=== PATIENT | male | born 1950 | race Caucasian/White ===

== ENCOUNTER 2017-07-23 09:11 | Day surgery (SDC) | payer MEDICARE, BC, SELFPAY ==
[2017-07-08 10:56] VITALS: BMI 42.9
[2017-07-23] VITALS (10 sets, daily range): BP systolic 102–141; BP diastolic 59–78; PULSE 78–93; RESP 14–22; TEMP 36.4–36.8; O2SAT 92–96; BMI 42.9
[2017-07-23] MEDS: CELECOXIB 200 MG CAPSULE 400 MG PO (10:47)
[2017-07-23] MEDS: LACTATED RINGERS 1,000 ML 42 ML IV ×2 (11:20→13:30)
--- NOTE | 2017-07-23 12:10 | SUR.PREOP ---
Block by dr Smart with Versed & Fentanyl given. No O2 used. Tolerated well. VSS. NSR but unable to print strip. Time 9205-6116.
--- NOTE | 2017-07-23 12:11 | P.OP_ITS ---
Operative Date/Time/Diagnoses - Date of procedure: 07/23/17 Time of procedure: 13:36 Pre-op diagnosis: Right knee medial compartment arthritis Post-op diagnosis: same Procedure & Clinicians Procedure: Right knee medial compartment arthroplasty Same procedure as scheduled: Yes Indications: The patient presents today for medial compartment knee arthroplasty after failure of conservative treatment. The nature of the procedure including the risks and benefits, alternatives, postoperative course and expected outcome were discussed and all questions answered. Consent was obtained. Operative site confirmed and marked. Surgeon: Gal Dinero Email Marketing Specialist: Kaylen Vickers Anesthesia Type: General, Peripheral nerve block and Local Operative Notes Findings: Severe medial compartment osteoarthritis Closure Type: primary Specimen(s): none sent Implants & Drains: Rodriguez and NephThe Skillery ZUK: C Femoral component, 3 tibial component, 8 mm polyethylene spacer. Applied: implant(s) Estimated Blood Loss (mL): 5 Blood products transfused: none Tourniquet time (min): 48 Procedure in detail: The patient was taken to the operative suite and placed under general anesthesia. The patient received prophylactic antibiotics 1 g of IV tranexamic acid prior to surgery. [The lateral aspect of the leg was prepped and the knee injected with 20 mL of 1% lidocaine with epinephrine.] The leg was prepped and draped in usual sterile fashion. The leg was exsanguinated with an Esmarch dressing and the tourniquet raised to 250 torr. A 10 cm medial parapatellar incision and arthrotomy was then made. The anterior aspect of the fat pad and medial meniscus was resected. A small amount of anterior tibial boss was resected with a oscillating saw. The knee was then extended and the alignment guide placed. The distal femoral and proximal tibial cutting guides were then pinned into place. The distal femoral cut was made in extension. The proximal tibial cut was made in flexion. All remaining meniscus was excised. Gaps were checked with blocks. Soft tissues were then injected with a combination of [40 mL of quarter percent Marcaine with epinephrine, 20 mL of Exparel]. The femur was sized and the appropriate cutting guide placed. The peg holes were drilled and chamfer cuts made. Next the tibia was sized and drilled. Trial components were then placed. The knee had good shinto of soft tissue tension without over correction. Range of motion was [full]. The trial components were removed. The knee was cleansed with Pulsavac irrigation and dried. The components were then cemented with high viscosity vacuum mixed bone cement. The knee was held in extension until the cement had adequately cured. The knee was then irrigated and inspected for any further debris. The extensor mechanism was closed at 90? of flexion with a few interrupted #1 Vicryl sutures and a running O V-LOC suture. [The knee was then filled with 50 mL of solution containing 1 g of tranexamic acid and 10 mL of 0.5% Marcaine.] The subcutaneous tissue was closed with 2-0 Vicryl. The skin was closed with a running 3 0 V-LOC suture and surgical adhesive. An Aquacel dressing was applied. The leg was then wrapped with an Adam which will be kept on for the first 24 hours. The patient tolerated the procedure well and was returned to recovery room in good condition. Complications: none Condition: stable Disposition: same day surgery Plan for aftercare: Progressive weight-bearing and activity as tolerated. Aspirin for DVT prophylaxis. Discharged to home.
[2017-07-23] MEDS: CEFAZOLIN 2 GM/100 ML FROZ.PIGGY IV (12:14)
[2017-07-23] MEDS: LIDOCAINE 1% W/EPI INJ 20 ML INJ (12:20)
--- NOTE | 2017-07-23 12:45 | SUR.PREOP ---
Prior to going into the OR, took hearing aids. Teeth and glasses with patient to OR.
[2017-07-23] MEDS: MIDAZOLAM 2 MG/2 ML VIAL 1 MG IV (12:52)
[2017-07-23] MEDS: fentaNYL 100 MCG/2 ML INJ 50 MCG IV (12:52)
--- NOTE | 2017-07-23 12:52 | SUR.OPER ---
Supine on padded OR bed. Pillow under head, arms secured on padded armboards <90 degree abduction. Safety belt across torso. Non-operative leg secured with tape over blanket over lower leg. Operative leg secured in DeMayo/Remi positioner. Foam padded brace at thigh of operative leg.
[2017-07-23] MEDS: BUPIVACAINE 0.5% W/ EPI (PF) 20 ML, BUPIVACAINE LIPOSOME 266 MG, SODIUM CHLORIDE 0.9% 2... INJ (13:02)
[2017-07-23] MEDS: BUPIVACAINE 0.5% (PF) 10 ML, TRANEXAMIC ACID 1,000 MG, SODIUM CHLORIDE 0.9% 20 ML INJ (13:03)
[2017-07-23] MEDS: OXYCODONE/ACETAMINOPHEN 5/325 TABLET 1 TAB PO (14:20)
--- NOTE | 2017-07-23 15:36 | SUR.PHASEII ---
While in Phase II walked twice with walker- first about 20 feet, and then ten feet. Used walker. Tolerated well and without c/o pain. Transferred from to car without problem and independently. While verbalizing pain at 9/10, FLACC remained 0 the entire time in Phase II.
--- NOTE | 2017-07-23 15:39 | SUR.PHASEII ---
Addendum: Would have been able to discharge about fifteen minutes earlier however needed to wait for to return from picking up prescriptions.
== END 2017-07-23 15:25 | disposition home or self-care (01) ==
PROVIDERS: PCP Physician Assistant; Visit Provider Orthopaedic Surgery
PROC: (CPT 27446; principal; 2017-07-23 10:30)
DX: M17.11 Unilateral primary osteoarthritis, right knee (principal); S83.241A Other tear of medial meniscus, current injury, right knee, initial encounter; G47.33 Obstructive sleep apnea (adult) (pediatric); G62.9 Polyneuropathy, unspecified; I25.2 Old myocardial infarction; I10 Essential (primary) hypertension; E66.9 Obesity, unspecified; E11.9 Type 2 diabetes mellitus without complications; I25.10 Atherosclerotic heart disease of native coronary artery without angina pectoris; D64.9 Anemia, unspecified; Z79.84 Long term (current) use of oral hypoglycemic drugs
CPT/HCPCS: 27446; C1776; C9290; J0690; J1100; J2250; J2405; J2704; J3010

== ENCOUNTER → 2018-10-29 16:27 | Outpatient (CLI) | payer MEDICARE, BC, SELFPAY ==
[2018-10-29 17:55] LABS: Appearance Urine UA CLOUDY; Bilirubin Urine UA NEGATIVE (NEGATIVE); Color Urine UA YELLOW; Glucose Urine UA NEGATIVE (Negative); Ketones Urine UA NEGATIVE (NEGATIVE); Leukocyte Esterase Urine UA 1+ (NEGATIVE); Nitrite Urine UA POSITIVE (Negative); Occult Blood Urine UA 2+ (Negative); Protein Urine UA TRACE (Negative); Specific Gravity Urine UA 1.025 (1.000-1.035); Urobilinogen Urine UA 0.2 E.U./dL (0.2)
[2018-10-29 18:07] LABS: Amorphous Sediment Urine 1+; Bacteria Urine Many (>30); RBC Urine 5-10/HPF (0-5/HPF); Squamous Epithelial Cell Urine 0-1 /HPF (0-5/HPF); WBC Urine 10-30/HPF (0-5/HPF)
[2018-10-29 18:08] LABS: Culture Indicated Urine Specimen Cultured; Mucus Urine 1+ (Negative)
== END ==
PROVIDERS: PCP Physician Assistant; Visit Provider Urology
DX: R39.9 Unspecified symptoms and signs involving the genitourinary system (principal)
CPT/HCPCS: 81001; 87077; 87086; 87186

== ENCOUNTER → 2019-03-30 12:21 | Outpatient (CLI) | payer MEDICARE, BC, SELFPAY ==
--- NOTE | 2019-03-30 12:23 | DI.CT.S_ITS ---
PROCEDURE: CT CHEST ABD PEL W CON INDICATIONS: BLADDER CIS TECHNIQUE: After the administration of oral and intravenous contrast, 5 mm thick sections acquired from the lung apices to the symphysis. 5 mm coronal and sagittal reformats were performed, with additional 7 mm coronal MIP reformats through the lungs. For radiation dose reduction, the following was used: automated exposure control, adjustment of mA and/or kV according to patient size. COMPARISON: None. FINDINGS: Image quality: Excellent. CHEST: Lungs and pleura: No acute airspace opacities. No pleural effusions or pneumothorax. Central and peripheral airways appear patent and normal in caliber. Mediastinum: Heart size is normal. Coronary artery calcifications are present. No pericardial effusion. No mediastinal or hilar adenopathy by size criteria. Thoracic aorta and central pulmonary arteries are normal in size. Esophagus is normal in caliber. No hiatal hernia. Chest wall: No axillary or supraclavicular adenopathy by size criteria. Thyroid gland demonstrates a tiny hyperdense appearance measuring 5 mm in the right lobe, nonspecific and could be further investigated with ultrasound as clinically necessary. ABDOMEN: Solid organs: Liver is normal in size and enhancement. Gallbladder unremarkable. Biliary system is non dilated. Pancreas enhances normally. Spleen is normal in size and enhancement. No adrenal nodules. Kidneys demonstrate normal size and enhancement, without hydronephrosis. Peritoneum and bowel: Colonic diverticulosis is seen without evidence of acute complication. The appendix is prominent measuring 9 mm however nonspecific periappendiceal inflammatory signs are present. No appendicolith is seen. This may be physiologic in nature No free fluid or air. Nodes and vessels: No retroperitoneal or mesenteric adenopathy by size criteria. Aorta and inferior vena cava are normal in size. Miscellaneous: No ventral hernias. PELVIS: Genitourinary: Circumferential mural thickening of the bladder. The seminal vesicles appear grossly unremarkable. Miscellaneous: No inguinal hernias or adenopathy. Bones: No suspicious bony lesions. No vertebral body compression fractures. Diffuse spondylosis and facet arthropathy IMPRESSION: Circumferential bladder wall thickening, potentially reflecting the patient's given clinical history of neoplasm. No evidence of distant metastatic disease. No pelvic adenopathy identified. Incidentally noted enlarged appearance of the appendix measuring up to 9 mm although no other specific CT evidence of acute appendicitis in this cancer surveillance patient. Recommend clinical correlation. Theoretically, this could reflect anatomic variation. Findings were personally telephoned and discussed with Dr. Garza's triage nurse (Kira) at approximately 1630 hours on 03/30/21 who will relay them, and call back if any questions Additional chronic and incidental findings as above. Dictated by: Xavi Mcdaniel M.D. on 03/30/2019 at 16:05 Approved by: Xavi Mcdaniel M.D. on 03/30/2019 at 16:56
--- NOTE | 2019-03-30 12:23 | DI.MRI.S_ITS ---
PROCEDURE: MR PELIS WO/W CON INDICATIONS: BLADDER CANCER TECHNIQUE: Coronal HASTE, sagittal T2 FSE, axial T1 FSE, axial and coronal nonbreath-hold T2 FSE. Axial dynamic VIBE during administration of contrast. Post-contrast axial and coronal VIBE/2-D FLASH with fat saturation from the iliac crests to the symphysis. Optional diffusion weighted imaging and ADC may be performed. COMPARISON: None. FINDINGS: Image quality: Excellent. Bowel and peritoneum: No pathologic free pelvic fluid. Inferior colon and small bowel loops are normal in caliber. Marked diverticulosis is seen throughout the distal descending and sigmoid colon. Genitourinary system: The urinary bladder is partially decompressed and demonstrates uniform circumferential wall thickening with mucosal surface irregularity which may be secondary to heavy trabeculation. Post contrast, the mucosal surface enhances mildly and uniformly. A discrete polypoid enhancing lesion is not identified. The prostate gland is normal size and there are morphologic changes centrally of probable TURP procedure. Distal ureters are non distended. Nodes and vessels: No pathologic pelvic or inguinal adenopathy by size criteria. Iliac vessels are normal in caliber. Soft tissues: No inguinal hernias. Bones: Marrow is normal in overall signal. IMPRESSION: 1. Partially distended bladder with diffusely thickened wall. This may be secondary to heavy trabeculation and/or treatment changes. A discrete primary tumor is not identified. 2. No evidence of adjacent adenopathy or metastatic disease in the pelvis. 3. Possible prior TURP procedure. 4. Diverticulosis of colon. Dictated by: Shirley Smith M.D. on 03/30/2019 at 18:21 Approved by: Shirley Smith M.D. on 03/30/2019 at 18:30
== END ==
PROVIDERS: PCP Physician Assistant; Referring Provider Internal Medicine Hematology & Oncology; Visit Provider Internal Medicine Hematology & Oncology
DX: D09.0 Carcinoma in situ of bladder (principal); I25.10 Atherosclerotic heart disease of native coronary artery without angina pectoris; K57.90 Diverticulosis of intestine, part unspecified, without perforation or abscess without bleeding
CPT/HCPCS: 71260; 72197; 74177; A9579; Q9967

== ENCOUNTER 2019-04-04 12:49 | Day surgery (SDC) | payer MEDICARE, BC, SELFPAY ==
[2019-04-04] VITALS (7 sets, daily range): BP systolic 103–126; BP diastolic 56–74; PULSE 77–86; RESP 12–14; TEMP 36.2–36.6; O2SAT 92–97; BMI 43.7
--- NOTE | 2019-04-04 | DI.RAD.S_ITS ---
PROCEDURE: XR CHEST 1V INDICATIONS: PORT-A-CATH PLACEMENT TECHNIQUE: One view of the chest was acquired. COMPARISON: None. FINDINGS: Surgical changes and devices: Left chest port with the tip projecting in the upper SVC. Lungs and pleura: Scattered subsegmental atelectasis and/or scarring. No focal consolidation. Lung volumes are decreased. Elevation of the right hemidiaphragm. No pleural effusions or pneumothorax. Mediastinum: Mediastinal contours appear normal. Heart size is normal. Bones and chest wall: No suspicious bony lesions. Overlying soft tissues appear unremarkable. IMPRESSION: Left chest port as above with the tip projecting in the upper SVC. No pneumothorax. Low lung volumes with scattered subsegmental atelectasis/scarring. Dictated by: Xavi Mcdaniel M.D. on 04/04/2019 at 17:07 Approved by: Xavi Mcdaniel M.D. on 04/04/2019 at 17:08
[2019-04-04] MEDS: LACTATED RINGERS 1,000 ML 42 ML IV (14:21)
--- NOTE | 2019-04-04 14:23 | P.HP_ITS ---
History of Present Illness History of Present Illness Date Patient Seen: 04/04/19 Time Patient Seen: 14:23 Chief complaint: [id number] Narrative: The patient is a gentleman with bladder cancer. He has had multiple recurrences and there is a plan for him to have immunotherapy. I was asked to place a Port-A-Cath.. He is right hand dominant Patient History Medical History Bladder cancer (Acute) Chronic back pain (Acute) Depression (Acute) Diabetes (Acute) Easy bruisability (Acute) HTN (hypertension) (Acute) Hyperlipemia (Acute) Myocardial infarction (Acute) Peripheral neuropathy (Acute) Pneumonia (Acute) Sleep apnea with use of continuous positive airway pressure (CPAP) (Acute) Thin skin (Acute) Surgical History H/O cystoscopy (Acute) Hx of arthroscopy of right knee (Acute) Hx of heart artery stent (Acute) Hx of shoulder surgery (Acute) Hx of tonsillectomy (Acute) S/P right unicompartmental knee replacement (Acute 07/23/17) Family & Social History Family History Sister Breast cancer Social History: household members spouse Prior Living Arrangements House Safety & Behavioral: Feels Safe in Current Yes Environment Been Physically Hurt or No Threatened By a Person Suicidal Ideation Description None Suicide Plan Description No Plan Tobacco & Substance use: Smoking Status Never smoker alcohol intake never Substance Use Type does not use Meds Home Medications and Allergies Home Medications Medication Instructions Recorded Confirmed Type aspirin 81 mg PO QDAY #0 04/18/16 04/04/19 History atorvastatin 40 mg PO HS #0 04/18/16 04/04/19 History cholecalciferol (vitamin D3) 1 tab PO QDAY #0 04/18/16 04/04/19 History [Vitamin D3] furosemide 20 mg PO QDAY #0 04/18/16 04/04/19 History gabapentin [Neurontin] 1,200 mg PO TID #0 04/18/16 04/04/19 History ibuprofen 800 mg PO TIDP PRN #0 04/18/16 04/04/19 History lisinopril [Zestril] 5 mg PO BEDTIME #0 04/18/16 04/04/19 History multivitamin [Multiple Vitamins] 1 tab PO QDAY #0 04/18/16 04/04/19 History vitamin E 180 u PO QDAY #0 04/18/16 04/04/19 History zolpidem [Ambien] 10 mg PO HS #0 04/18/16 04/04/19 History bupropion HCl 150 mg PO TID 07/08/17 04/04/19 History duloxetine 60 mg PO QNOON 07/08/17 04/04/19 History metformin 500 mg PO BID 07/08/17 04/04/19 History metoprolol succinate 50 mg PO BEDTIME 07/08/17 04/04/19 History hydrocodone-acetaminophen 1 tab PO Q6-8H PRN #0 07/23/17 04/04/19 History Allergies Allergy/AdvReac Type Severity Reaction Status Date / Time Sulfa (Sulfonamide Allergy Unknown Unknown Verified 04/04/19 13:04 Antibiotics) reaction [SULFA (SULFONAMIDE per patient ANTIBIOTICS)] erythromycin base AdvReac Mild VOMITING Verified 04/04/19 13:04 [ERYTHROMYCIN BASE] tetracycline [TETRACYCLINE] AdvReac Mild VOMITING Verified 04/04/19 13:04 Review of Systems Review of Systems Narrative: Has sleep apnea uses machine but did not bring it with him. Had stents placed in his heart he has had angiogram since a does have some residual scarring. He does not have any symptoms he says but he is not terribly active. No black or bloody bowel movements. No seizures. He is diabetic. Exam Vital Signs (past 8 hours): - 04/04/19 13:15 Temperature 97.5 F L Pulse Rate 82 Respiratory Rate 12 Blood Pressure 103/64 Pulse Oximetry 97 Oxygen Delivery Method Room Air Narrative Exam Narrative: Obese cooperative man in no apparent distress. Eyes are nonicteric. Lungs are clear to auscultation without rales or rhonchi. Heart d istant tones regular rate and rhythm. I do not appreciate a murmur gallop. Abdomen is protuberant soft nontender. No rashes on the skin of his chest. Alert and oriented. He Objective ECG Impression: Patient with bladder cancer in need of IV access. I was asked to place a port. I have discussed the procedure and rationale with him. Risks of bleeding, infection, DVT with arm swelling or pulmonary embolism, lung: Up salt discussed with him. He appears to understand and wishes to proceed.
[2019-04-04] MEDS: CEFAZOLIN 2 GM/100 ML FROZ.PIGGY IV (14:45)
--- NOTE | 2019-04-04 15:07 | SUR.OPER ---
Supine on padded OR bed, head on pillow, Right arm secured on padded arm boards at <90 degrees abduction, Left arm on padded arm board next to side, legs uncrossed, safety belt at thigh.
[2019-04-04] MEDS: LIDOCAINE 1% 20 ML INJ (15:15)
[2019-04-04] MEDS: HEPARIN 5,000 UNIT, SODIUM CHLORIDE 0.9% 50 ML IV (15:15)
--- NOTE | 2019-04-04 16:06 | PM.OP.1 ---
Operative Date/Time/Diagnoses Date of procedure: 04/04/19 Time of procedure: 16:06 Pre-op diagnosis: Bladder cancer Post-op diagnosis: same Procedure & Clinicians Procedure: Placement of left subclavian Port-A-Cath Same procedure as scheduled: Yes Indications: IV access for chemo Surgeon: Benjy Tsai Click Yes if Unassisted: Yes Anesthesia Type: General Operative Notes Findings: Tip makes a turn into the superior vena cava Closure Type: primary Specimen(s): none sent Prosthetic devices, grafts, tissues, transplants, or devices: Port-A-Cath Estimated Blood Loss (mL): 70 Blood products transfused: none Procedure in detail: Patient is placed supine on the operating room table and underwent general LMA anesthesia. He was prepped and draped in the usual fashion. Local anesthetic was infiltrated in field block fashion beneath the left clavicle. Transverse incision was made needle inserted on 1st attempt into the subclavian vein. Attempted to pass the guidewire and it coiled I removed both the wire and the needle reinserted the needle and it was able to successfully pass the guidewire without resistance. It appeared to be going in the appropriate location. I created a pocket inferior to my incision and put the catheter together in tapered it to appropriate length dilator and introducer were passed over the guidewire. The guidewire and the dilator removed leaving the introducer in place. I passed the catheter through it and peeled the introducer away. The tip appeared to coil in a funny angle and I was concerned that I might be entering the azygous system. I disconnected the catheter from the port and passed a guidewire through the catheter and try to manipulate it going downward. It kept sliding across and after about 20 minutes I removed this guidewire and inserted a urologic guidewire that was a little narrower longer more flexible. It passed readily into the appropriate location and I was able to pass the catheter into it that is into the superior vena cava and removed the guidewire. The catheter appeared to be in good location. I reconnected it to the port and placed the port in the pocket. I secured it with interrupted silk in aspirated and flushed the catheter with heparinized saline. The subcu was closed with interrupted 3 0 Vicryl. The skin was closed running 4 0 Vicryl subcuticular stitch and Steri-Strips. Dressing was applied the patient was awakened and taken the recovery area in good condition. Postprocedure x-ray has been ordered. Complications: none Post-operative Condition: stable Disposition: PACU
--- NOTE | 2019-04-04 17:28 | SUR.PHASEII ---
Clarified patient to take tylenol after procedure, MD is aware patient is taking Hydrocodone.
== END 2019-04-04 17:28 | disposition home or self-care (01) ==
PROVIDERS: PCP Internal Medicine; Referring Provider Specialist; Visit Provider Specialist
PROC: (CPT 36561; principal; 2019-04-04 14:15)
DX: C67.9 Malignant neoplasm of bladder, unspecified (principal); Z45.2 Encounter for adjustment and management of vascular access device
CPT/HCPCS: 36561; 71045; 76000; C1788; J0690; J1644; J2250; J2405; J2704; J3010

== ENCOUNTER → 2019-04-15 13:30 | Outpatient (CLI) | payer MEDICARE, BC, SELFPAY ==
--- NOTE | 2019-04-15 13:33 | DI.RAD.S_ITS ---
PROCEDURE: XR CHEST 1V INDICATIONS: patient concerned that portacath has moved TECHNIQUE: One view of the chest was acquired. COMPARISON: [facility], CR, XR CHEST 1V, 04/04/2019, 16:34. FINDINGS: Surgical changes and devices: Left Port-A-Cath is unchanged. Lungs and pleura: Linear opacity in the right midlung field has resolved. Mild hazy opacity is present within the right base with costophrenic angle blunting, unchanged. Mediastinum: Mediastinal contours appear normal. Heart size is normal. Bones and chest wall: No suspicious bony lesions. Overlying soft tissues appear unremarkable. IMPRESSION: Stable position of Port-A-Cath. Minimal right effusion. Dictated by: Nery Rivera M.D. on 04/15/2019 at 14:06 Approved by: Nery Rivera M.D. on 04/15/2019 at 14:07
== END ==
PROVIDERS: Referring Provider Surgery; Visit Provider Surgery
DX: Z45.2 Encounter for adjustment and management of vascular access device (principal)
CPT/HCPCS: 71045

== ENCOUNTER → 2019-11-30 15:13 | Outpatient (CLI) | payer MEDICARE, BC, SELFPAY | PROVIDERS: Visit Provider Specialist | DX: D09.0 Carcinoma in situ of bladder (principal); N39.0 Urinary tract infection, site not specified; Z85.51 Personal history of malignant neoplasm of bladder | CPT/HCPCS: 81002; 87086; 99215 ==

== ENCOUNTER → 2019-12-06 10:03 | Outpatient (CLI) | payer MEDICARE, BC, SELFPAY ==
[2019-12-07 02:04] LABS: COVID19 Sendout Not Detected (Not Detect)
== END ==
PROVIDERS: Visit Provider Nurse Practitioner
DX: Z11.59 Encounter for screening for other viral diseases (principal)
CPT/HCPCS: 87635

== ENCOUNTER 2019-12-09 08:01 | Day surgery (SDC) | payer MEDICARE, BC, SELFPAY ==
[2019-12-08 08:09] VITALS: BMI 37.9
--- NOTE | 2019-12-09 | PATH_ITS ---
[facility] Accession Number: [id number] . 01 Material submitted: . PART A: bladder, trigone - TRIGONE BIOPSY PART B: bladder - LEFT WALL BIOPSY PART C: bladder - RIGHT WALL BIOPSY PART D: bladder - POSTERIOR WALL BIOPSY PART E: bladder, dome - DOME BIOPSY PART F: prostate - PROSTATIC FOSSA BIOPSY . 02 Diagnosis: A. Bladder, Trigone, Biopsy: Urothelial mucosa with mild chronic inflammation. No definite muscularis propria present. No evidence of neoplasm. . B. Bladder, Left Wall, Biopsy: Urothelial carcinoma in situ. Muscularis propria present. Negative for invasive malignancy. . C. Bladder, Right Wall, Biopsy: Cystitis cystica. Muscularis propria present. No evidence of neoplasm. . D. Bladder, Posterior Wall, Biopsy: Urothelial mucosa with mild chronic inflammation. Muscularis propria present. No evidence of neoplasm. . E. Bladder, Dome, Biopsy: Urothelial carcinoma in situ. No definite muscularis propria present. Negative for invasive malignancy. . F. Prostatic Fossa, Biopsy: Urothelial mucosa with mild chronic inflammation. No evidence of neoplasm. MRV 12/13/2019 1300 Local . 02 Comment: As part of routine quality control tech raw materials, Dr. Stallings has reviewed this case and agrees with the diagnoses above. . 02 Electronically signed: . Bridger Viera MD, PhD, Pathologist NPI- [id number] . 01 Gross description: . A. The specimen is received in formalin, labeled trigone, and consists of a 0.3 x 0.3 x 0.2 cm mehta-pink fragment of soft tissue which is entirely submitted in cassette A1. B. The specimen is received in formalin, labeled left wall, and consists of a 0.4 x 0.3 x 0.2 cm mehta fragment of soft tissue which is entirely submitted in cassette B1. C. The specimen is received in formalin, labeled right wall, and consists of a 0.5 x 0.3 x 0.2 cm mehta-white fragment of soft tissue which is entirely submitted in cassette C1. D. The specimen is received in formalin, labeled posterior wall, and consists of a 0.4 x 0.2 x 0.2 cm mehta-pink fragment of soft tissue which is entirely submitted in cassette D1. E. The specimen is received in formalin, labeled dome, and consists of a 0.6 x 0.5 x 0.3 cm mehta-white fragment of soft tissue which is entirely submitted in cassette E1. F. The specimen is received in formalin, labeled prostatic fossa, and consists of a 0.6 x 0.5 x 0.3 cm mehta-white fragment of soft tissue which is entirely submitted in cassette F1. ([id number]) /FRR 12/10/2019 1808 Local . 02 Pathologist provided ICD-10: D09.0 . 02 CPT . 167832, 076852, 726901, 636676, [id number], [id number] Performed at: 01 [facility] [address] [id number] MD Gal Schmitt MD Phone: [phone] Performed at: 02 [facility] [id number] [place] [id number] MD Barbara Stallings MD Phone: [phone]
[2019-12-09 08:21] VITALS: BP 154/87; PULSE 62; RESP 16; TEMP 36.2; O2SAT 95; BMI 38.5
[2019-12-09] MEDS: LACTATED RINGERS 1,000 ML 42 ML IV (08:41)
--- NOTE | 2019-12-09 09:05 | PM.PREOP ---
Pre-operative Note Interval Note History & Physical reviewed/Exam performed by Physician: Yes Changes to H&P: No
[2019-12-09] MEDS: CEFAZOLIN 2 GM/100 ML FROZ.PIGGY IV (10:04)
--- NOTE | 2019-12-09 10:34 | SUR.OPER ---
Lithotomy on padded OR bed, head on pillow, arms secured on padded arm boards at <90 degrees abduction. Legs secured in padded yellow fins stirrups.
[2019-12-09] MEDS: BELLADONNA/OPIUM SUPPOSITORIES 1 EACH PR (10:40)
[2019-12-09] MEDS: WATER FOR INJECTION,STERILE 20 ML, mitoMYcin 20 MG INTRAVESIC (10:47)
--- NOTE | 2019-12-09 10:50 | P.OP_ITS ---
Operative Date/Time/Diagnoses Date of procedure: 12/09/19 Time of procedure: 10:50 Pre-op diagnosis: 1. History of recurrent CIS of bladder. 2. History of BCG failure. Post-op diagnosis: same Procedure & Clinicians Procedure: 1. Cystoscopy and random bladder biopsies. 2. Cystoscopy and instillation mitomycin-C (20 mg). Same procedure as scheduled: Yes Indications: 1. History of BCG failure. Click Yes if Unassisted: Yes Anesthesia Type: General Operative Notes Findings: 1. Urethra-multiple annular strictures which were negotiated with the 22 Palauan panendoscope. 2. External sphincter-coapted. 3. Prostate-3.5 cm length was mild to moderate trilobar hyperplasia. 4. Bladder-1+ trabeculation. Normal ureteral orifices bilaterally. No definite urothelial abnormalities, suspicious areas, or erythema. Previous biopsy sites well healed. Closure Type: not applicable Specimen(s): other (Bladder biopsies from trigone, right wall, left wall, posterior wall, dome, and prostatic fossa.) Applied: catheter ([address] Garcia catheter.) Estimated Blood Loss (mL): 1 Blood products transfused: none Tourniquet time (min): 0 Procedure in detail: Patient was positioned supine was administered general anesthesia. He was then repositioned supine and the lower abdomen genitalia and groin were then prepped and draped in sterile fashion. The 22 Palauan panendoscope was then passed lower urinary tract with the findings as described above. The cold cup biopsy forceps were then utilized to procure specimens from the trigone, the left wall, right wall, the posterior wall, the dome, and the prostatic fossa. All specimens were labeled as to the site of the procurement sent to pathology for routine gross and microscopic examination. The Bugbee cautery was then utilized to attain hemostasis. The bladder was then left partially filled and its panendoscope was removed. An 18 Palauan Garcia catheter was then inserted, the balloon was inflated to 10 cc, and the bladder contents drain. Next, a 20 cc solution with 20 mg mitomycin C was then instilled via the Garcia catheter and a plug positioned in the outflow for anticipated 2 hour retention. The patient was then repositioned supine, awakened, transferred to [facility], and transferred recovery room. Complications: none Post-operative Condition: stable Disposition: PACU Plan for aftercare: Discharge home
[2019-12-09 10:55] VITALS: BP 139/72; PULSE 63; RESP 13; TEMP 36.2; O2SAT 95
[2019-12-09 11:02] VITALS: BP 127/48; PULSE 64; RESP 15; TEMP 36.3; O2SAT 95
[2019-12-09 11:05] VITALS: BP 128/60; PULSE 61; RESP 10; TEMP 36.3; O2SAT 94
[2019-12-09 11:09] VITALS: BP 128/71; PULSE 60; RESP 10; TEMP 36.4; O2SAT 95
[2019-12-09 13:00] VITALS: BP 130/72; PULSE 55; RESP 18; TEMP 36.8; O2SAT 96
--- NOTE | 2019-12-09 14:15 | SUR.PHASEII ---
Late entry: Assumed care of pt at 1220. Pt was supposed to keep dukes plugged till 1300, pt decided at 1235 that he wanted catheter drained then, Dr. Cortes aware, AMA paperwork signed. Catheter drained, leg bag attached. Pt and recieved written and verbal d/c instructions on catheter care and how to change to both bags and how to d/c dukes. Both voiced an understanding. Pt left after assisted him to dress and he left in stable condition. Urine blood tinged with no clots.
== END 2019-12-09 13:20 | disposition home or self-care (01) ==
PROVIDERS: PCP Internal Medicine; Referring Provider Specialist; Visit Provider Specialist
PROC: 0TBB8ZZ Excision of Bladder, Via Natural or Artificial Opening Endoscopic (ICD-10-PCS; CPT 52204; principal; 2019-12-09 09:15)
DX: D09.0 Carcinoma in situ of bladder (principal); N30.80 Other cystitis without hematuria; N32.89 Other specified disorders of bladder; N40.0 Benign prostatic hyperplasia without lower urinary tract symptoms; N35.919 Unspecified urethral stricture, male, unspecified site; G47.30 Sleep apnea, unspecified; E11.9 Type 2 diabetes mellitus without complications; I10 Essential (primary) hypertension; E78.5 Hyperlipidemia, unspecified; I25.2 Old myocardial infarction; I25.10 Atherosclerotic heart disease of native coronary artery without angina pectoris; F32.9 Major depressive disorder, single episode, unspecified; G62.9 Polyneuropathy, unspecified; Z85.51 Personal history of malignant neoplasm of bladder; Z95.5 Presence of coronary angioplasty implant and graft
CPT/HCPCS: 52204; 51720; J0690; J2250; J2405; J2704; J3010; J9280

== ENCOUNTER → 2020-03-19 12:30 | Outpatient (CLI) | payer MEDICARE, BC, SELFPAY ==
--- NOTE | 2020-03-19 13:22 | DI.CT.S_ITS ---
PROCEDURE: CT CHEST ABD PEL W CON INDICATIONS: BLADDER CANCER TECHNIQUE: After the administration of oral and intravenous contrast, 5 mm thick sections acquired from the lung apices to the symphysis. 5 mm coronal and sagittal reformats were performed, with additional 7 mm coronal MIP reformats through the lungs. For radiation dose reduction, the following was used: automated exposure control, adjustment of mA and/or kV according to patient size. COMPARISON: [facility], CT, CT CHEST ABD PEL W CON, 03/30/2019, 13:27. FINDINGS: Image quality: Excellent. CHEST: Lungs and pleura: No acute airspace opacities. No pleural effusions or pneumothorax. Central and peripheral airways appear patent and normal in caliber. Mediastinum: Heart size is normal. No pericardial effusion. No mediastinal or hilar adenopathy by size criteria. Thoracic aorta and central pulmonary arteries are normal in size. Esophagus is normal in caliber. No hiatal hernia. Chest wall: No axillary or supraclavicular adenopathy by size criteria. Thyroid gland appears normal . ABDOMEN: Solid organs: Liver is normal in size and enhancement. Gallbladder appears normal . Biliary system is non dilated. Pancreas enhances normally. Spleen is normal in size and enhancement. No adrenal nodules. Kidneys demonstrate normal size and enhancement, without hydronephrosis. Peritoneum and bowel: Bowel loops demonstrate normal wall thickness and caliber. No free fluid or air. Nodes and vessels: No retroperitoneal or mesenteric adenopathy by size criteria. Aorta and inferior vena cava are normal in size. Miscellaneous: No ventral hernias. PELVIS: Genitourinary: Bladder wall thickness is normal. Miscellaneous: No inguinal hernias or adenopathy. Normal appendix found. Bones: No suspicious bony lesions. No vertebral body compression fractures. IMPRESSION: Normal examination, no evidence of recurrent disease or interval development of distant metastatic disease. Dictated by: Raj Bland M.D. on 03/19/2020 at 16:06 Approved by: Raj Bland M.D. on 03/19/2020 at 16:16
== END ==
PROVIDERS: Referring Provider Internal Medicine Hematology & Oncology; Visit Provider Internal Medicine Hematology & Oncology
DX: C67.9 Malignant neoplasm of bladder, unspecified (principal)
CPT/HCPCS: 71260; 74177; Q9967

== ENCOUNTER → 2020-05-16 13:42 | Outpatient (CLI) | payer MEDICARE, BC, SELFPAY ==
[2020-05-16 14:16] LABS: COVID19 -Nasal RAPID Negative (Negative)
== END ==
PROVIDERS: PCP Internal Medicine; Visit Provider Specialist
DX: Z20.822 Contact with and (suspected) exposure to COVID-19 (principal)
CPT/HCPCS: 87635; C9803

== ENCOUNTER 2020-05-18 07:24 | Day surgery (SDC) | payer MEDICARE, BC, SELFPAY ==
[2020-05-18] VITALS (11 sets, daily range): BP systolic 110–140; BP diastolic 52–80; PULSE 60–76; RESP 12–18; TEMP 36.1–37.2; O2SAT 94–97; BMI 34.8
--- NOTE | 2020-05-18 | PATH_ITS ---
[facility] Accession Number: [id number] . 01 Material submitted: . PART A: body - LEFT LATERAL WALL PART B: body - RIGHT LATERAL WALL PART C: body - POSTERIOR LATERAL WALL PART D: body - DOME PART E: body - TRIGONE PART F: urethra - PROSTHETIC URETHRA . 02 Diagnosis: A-C: Bladder, Left Lateral Wall, Right Lateral Wall, Posterior Lateral Wall, Biopsies: Urothelial mucosa with no diagnostic abnormality. Muscularis propria present. No evidence of neoplasm. . D. Bladder, Dome, Biopsy: Urothelial mucosa with mild chronic inflammation. No muscularis propria identified. No evidence of neoplasm. . E. Bladder, Trigone, Biopsy: Urothelial mucosa with no diagnostic abnormality. No muscularis propria identified. No evidence of neoplasm. . F. Prostatic Urethra, Biopsy: Prostatic urethra with no diagnostic abnormality. No evidence of neoplasm. [facility] 05/23/2020 1234 Local . 02 Electronically signed: . Bridger Viera MD, PhD, Pathologist NPI- [id number] . 01 Gross description: . A. Received in formalin and labeled left lateral wall and consists of a 0.3 x 0.3 x 0.2 cm mehta fragment of soft tissue which is entirely submitted in cassette A1. B. Received in formalin and labeled right lateral wall and consists of a 0.4 x 0.3 x 0.2 cm mehta fragment of soft tissue which is entirely submitted in cassette B1. C. Received in formalin and labeled posterior lateral wall and consists of a 0.5 x 0.5 x 0.2 cm mehta fragment of soft tissue which is entirely submitted in cassette C1. D. Received in formalin and labeled dome and consists of a 0.3 x 0.3 x 0.2 cm fragment of mehta tissue which is entirely submitted in cassette D1. E. Received in formalin and labeled trigone and consists of a 0.3 x 0.3 x 0.2 cm mehta fragment of soft tissue which is entirely submitted in cassette E. F. Received in formalin and labeled prostatic urethra and consists of a 0.4 x 0.3 x 0.2 cm mehta-white fragment of soft tissue which is entirely submitted in cassette F1. ([id number]) /MRV 05/22/2020 1735 Local . 02 Pathologist provided ICD-10: Z85.51 . 02 CPT . 319933, [id number], 791669, [id number], [id number], [id number] Performed at: 01 [facility] [address] [id number] MD Gal Schmitt MD Phone: [phone] Performed at: 02 [facility] [address] [place], [place] [id number] MD Barbara Stallings MD Phone: [phone]
[2020-05-18] MEDS: LACTATED RINGERS 500 ML 25 ML IV (08:20)
[2020-05-18] MEDS: LIDOCAINE 1% 20 ML (08:20)
--- NOTE | 2020-05-18 08:28 | PM.PREOP ---
Pre-operative Note Interval Note History & Physical reviewed/Exam performed by Physician: Yes Changes to H&P: No H&P completed within 30 days and has changed as indicated here:: The patient requests redo dorsal slit circumcision. Discussion informed consent obtained for same.
--- NOTE | 2020-05-18 08:42 | SUR.OPER ---
Lithotomy on padded OR bed, head on pillow, arms secured on padded arm boards at <90 degrees abduction. Legs secured in padded yellow fins stirrups.
[2020-05-18] MEDS: CEFAZOLIN VIAL 3 GM in SODIUM CHLORIDE 0.9% 100 ML 200 ML IV (08:50)
[2020-05-18] MEDS: BUPIVACAINE 0.25% W/ EPI (PF) 10 ML VIAL 20 ML INJ (09:09)
[2020-05-18] MEDS: BACITRACIN OINT 0.9 GM PCKT 1 APPLIC TOP (09:31)
[2020-05-18] MEDS: BELLADONNA/OPIUM SUPPOSITORIES 1 EACH PR (09:52)
--- NOTE | 2020-05-18 10:00 | PM.OP.1 ---
Operative Date/Time/Diagnoses Date of procedure: 05/18/20 Time of procedure: 10:01 Pre-op diagnosis: 1. History of carcinoma situ-bladder 2. Phimosis Post-op diagnosis: same Procedure & Clinicians Procedure: 1. Cystoscopy and random bladder biopsy 2. Cystoscopy and fulgaration 3. Dorsal slit circumcision Same procedure as scheduled: Yes Indications: 1. History recurrent carcinoma situ-bladder 2. Phimosis Surgeon: Eleni Cortes Click Yes if Unassisted: Yes Anesthesia Type: General Operative Notes Findings: 1. Urethral-several wide caliber, annular strictures of the penile and distal bulbar segment. 2. External sphincter-coapted with normal overlying urothelium. 3. Prostate-4 cm length with moderate lateral lobe hyperplasia and elevated median bar. Urothelium appeared visually normal. 4. Bladder-1+ trabeculation. Normal ureteral orifices bilaterally. No obvious urothelial abnormalities suspicious for recurrent neoplasm. There are changes within the bladder consistent with previous biopsy and treatment effect. 5. Random biopsies were procured from the left lateral wall, the right lateral wall, the posterior wall, the dome, the trigone, and the prostatic urethra. 6. Foreskin with thickening secondary to chronic inflammation and phimosis. Closure Type: not applicable Specimen(s): other (Cold cup bladder biopsies from left lateral wall, right lateral wall, posterior wall, dome, trigone, and prostatic urethra.) Applied: catheter (18. Mauritanian Garcia catheter) Estimated Blood Loss (mL): 2 Blood products transfused: none Procedure in detail: The patient was positioned supine was administered general anesthesia. He was then positioned semi lithotomy and the lower abdomen, genitalia, and groin were prepped and draped in sterile fashion. A straight hemostatic clamp was applied the dorsal foreskin at the 12 o'clock position. It was engaged for crush hemostasis. Local anesthetic (0.25% Marcaine with epinephrine). Was then infiltrated along either side of the hemostatic clamp. The clamp was then disengaged and the Metzenbaum scissors were used to divide the dorsal prepuce. 4-0 chromic was then used with a running, intermittently locking closure technique. The resectoscope was then inserted in the urethral meatus and advanced proximally with the findings as described above. The scope was then fitted with cold cup biopsy forceps and specimens were procured systematically and labeled as to anatomic location. Specimens were then submitted to pathology for routine gross and microscopic examination. Resectoscope was then fitted with the working element and a button electrode. The biopsy sites were then cauterized for hemostasis. The bladder was then left partially filled and the resectoscope was removed. An 18 Mauritanian Garcia catheter was then inserted, the balloon inflated 10 cc common of bladder contents drained. Catheter was then attached to gravity drainage. Antibiotic ointment in dry 4x4s were then applied to the distal penis and the patient was fitted with net briefs. The patient was then repositioned supine, was awakened, transferred to a gurney, and transported to PACU. Complications: none Post-operative Condition: stable Disposition: PACU Plan for aftercare: Discharge home
--- NOTE | 2020-05-18 10:29 | SUR.PHASEI ---
[facility] thinks this pt arrived to phase 1 at another time other than when he did, which was 1003.
[2020-05-18] MEDS: OXYCODONE IR 5 MG TABLET PO (10:54)
--- NOTE | 2020-05-18 11:37 | SUR.PHASEII ---
changed bag to leg bag per pt's request. provided pt with plug and overnight bag to take home. Instructed pt and to remove dukes on morning of 05/21. Pt and state they have removed catheters before without issue, went over instructions again and provided written instructions as well. port deaccessed without issue. pt left with [employer] in w/c to car with .
== END 2020-05-18 11:28 | disposition home or self-care (01) ==
PROVIDERS: PCP Internal Medicine; Referring Provider Internal Medicine; Visit Provider Specialist
PROC: 0TBB8ZZ Excision of Bladder, Via Natural or Artificial Opening Endoscopic (ICD-10-PCS; CPT 52204; principal; 2020-05-18 08:45)
DX: N30.90 Cystitis, unspecified without hematuria (principal); Z85.51 Personal history of malignant neoplasm of bladder; N47.1 Phimosis; I25.10 Atherosclerotic heart disease of native coronary artery without angina pectoris; I25.2 Old myocardial infarction; G47.33 Obstructive sleep apnea (adult) (pediatric); E11.40 Type 2 diabetes mellitus with diabetic neuropathy, unspecified
CPT/HCPCS: 52204; 54150; J0690; J1100; J1642; J2250; J2405; J2704; J3010

== ENCOUNTER 2020-09-04 13:11 | Emergency (ER) | payer MEDICARE, BC, SELFPAY ==
[2020-09-04 13:45] VITALS: BP 107/79; PULSE 100; RESP 26; TEMP 36.5; O2SAT 97; BMI 33.4
--- NOTE | 2020-09-04 13:51 | DI.RAD.S_ITS ---
PROCEDURE: XR CHEST 1V INDICATIONS: suspected sepsis TECHNIQUE: One view of the chest was acquired. COMPARISON: [facility], CR, XR CHEST 1V, 04/15/2019, 13:30. [facility], CR, XR CHEST 1V, 04/04/2019, 16:34. FINDINGS: Surgical changes and devices: Port-A-Cath from left-sided approach crosses the midline into the area of the azygos arch of the superior vena cava.. Lungs and pleura: Lungs are clear. No pleural effusions or pneumothorax. Mediastinum: Mediastinal contours appear normal. Heart size is normal. Bones and chest wall: No suspicious bony lesions. Overlying soft tissues appear unremarkable. IMPRESSION: Port-A-Cath in normal position, no pneumonia found. Chronic mild elevation of the right hemidiaphragm. Dictated by: Raj Bland M.D. on 09/04/2020 at 14:29 Approved by: Raj Bland M.D. on 09/04/2020 at 14:30
[2020-09-04 14:02] LABS: Add Manual Diff / Slide Review NO; Basophils Absolute Auto 100 /uL (0-100); Basophils Percent Auto 0.9 % (0-2); Eosinophils Absolute Auto 500 /uL (0-450); Hematocrit 40.1 % (41-53); Hemoglobin 13.7 g/dL (13.5-17.5); Lymphocytes Absolute Auto 3100 /uL (1100-4500); Lymphocytes Percent Auto 35.2 % (25-40); Mean Corpuscular HGB Conc 34.2 % (30-36); Mean Corpuscular Hemoglobin 33.3 PG (26-34); Mean Corpuscular Volume 97.2 fL (80-100); Monocytes Absolute Auto 900 /uL (0-900); Monocytes Percent Auto 10.4 % (3-14); Neutrophils Absolute Auto 4100 /uL (1500-7000); Neutrophils Percent Auto 47.5 % (50-75); Platelet Count 190 X10^3/uL (150-400); Red Blood Cell Count 4.13 X10^6/uL (4.5-5.9); Red Cell Distribution Width 13.2 % (11.6-14.8); White Blood Cell Count 8.7 X10^3/uL (4.5-11.0)
[2020-09-04] MEDS: ONDANSETRON 4 MG/2 ML INJ IV (14:08)
[2020-09-04] MEDS: SODIUM CHLORIDE 0.9% 1,000 ML 1000 ML IV (14:08)
[2020-09-04] MEDS: LIDOCAINE 1% (PF) 2 ML (14:08)
[2020-09-04 14:10] LABS: Alanine Aminotransferase 16 IU/L (<50); Albumin Globulin Ratio 1.4 (1.0-2.8); Alkaline Phosphatase 64 U/L (38-126); Aspartate Aminotransferase 31 IU/L (17-59); Bilirubin Total 0.8 mg/dL (0.2-1.3); Blood Urea Nitrogen 20 mg/dL (9-20); Calcium 10.2 mg/dL (8.4-10.2); Carbon Dioxide 23 mmol/L (22-32); Chloride 96 mmol/L (98-107); Estimated Glomerular Filt Rate > 60.0 mL/min (>60); Globulin 2.9 g/dL (1.7-4.1); Glucose 114 mg/dL (80-110); HEMOLYSIS < 15 (0-50); Lactate (Lactic Acid) 1.3 mmol/L (0.7-2.1); Lipase 39 U/L (23-300); Potassium 3.7 mmol/L (3.4-5.1); Sodium 129 mmol/L (137-145); Total Protein 6.9 g/dL (6.3-8.2)
[2020-09-04 14:23] LABS: Creatine Kinase 115 U/L (55-170)
[2020-09-04 14:26] LABS: Procalcitonin 0.09 ng/mL (<0.5)
[2020-09-04 14:31] LABS: NT-proBNP (BNP-Adult 18+) 31 pg/mL (<125); Troponin I < 0.012 ng/mL (0.01-0.034)
[2020-09-04 14:42] LABS: CKMB % Relative Index 1.8 % (1.5-5.0); Creatine Kinase MB 2.11 ng/mL (<2.37)
--- NOTE | 2020-09-04 14:46 | ED.SOB ---
HPI - SOB/Dyspnea General Chief Complaint: Shortness of Breath/Dyspnea Stated Complaint: weakness, decreased appetite, cancer pt Time Seen by Provider: 09/04/20 13:59 Source: patient Mode of arrival: EMS Limitations: physical limitation History of Present Illness HPI Narrative: Male with history of coronary artery disease, bladder cancer currently being treated with keytruda, presenting today with generalized weakness nausea and vomiting and shortness of breath. He does experience some nausea vomiting with the cage treat up. He has lost weight since he started it. He is unable to keep anything down now. However today he is also experiencing some shortness of breath with exertion. He feels a little dizzy and lightheaded as well. He is having pain in his bladder more so than usual. He denies fever or chills. No productive cough no chest pain. He denies any orthopnea. Related Data Home Medications Medication Instructions Recorded Confirmed aspirin 81 mg tablet,delayed 81 mg PO QDAY #0 04/18/16 06/18/20 release gabapentin 600 mg tablet 1,200 mg PO TID #0 04/18/16 06/18/20 (Neurontin) multivitamin (Multiple Vitamins) 1 tab PO QDAY #0 04/18/16 06/18/20 zolpidem 10 mg tablet (Ambien) 10 mg PO HS #0 04/18/16 06/18/20 Previous Rx's Medication Instructions Recorded duloxetine 60 mg capsule,delayed 60 mg PO QNOON #90 cap 03/22/20 release tramadol 50 mg tablet 50 mg PO Q6H PRN #14 tab 05/18/20 atorvastatin 40 mg tablet 40 mg PO HS #30 tab 06/12/20 lisinopril 5 mg tablet (Zestril) 5 mg PO BEDTIME #30 tab 06/12/20 metoprolol succinate 50 mg 50 mg PO .QHS #30 tab 06/12/20 tablet,extended release 24 hr (Toprol XL) bupropion HCl 150 mg tablet,12 hr 150 mg PO BID #180 ea 07/06/20 sustained-release oxycodone-acetaminophen 10 mg-325 1 tab PO Q4-6H PRN #120 tab 08/21/20 mg tablet ondansetron 4 mg disintegrating 4 mg PO Q6HR PRN #10 tab 09/04/20 tablet Allergies Allergy/AdvReac Type Severity Reaction Status Date / Time Sulfa (Sulfonamide Allergy Unknown Unknown Verified 05/10/20 15:58 Antibiotics) reaction [SULFA (SULFONAMIDE per patient ANTIBIOTICS)] morphine AdvReac Severe Delirium, Verified 05/10/20 15:58 constipation erythromycin base AdvReac Mild VOMITING Verified 05/10/20 15:58 [ERYTHROMYCIN BASE] tetracycline [TETRACYCLINE] AdvReac Mild VOMITING Verified 05/10/20 15:58 Review of Systems Review of Systems Narrative: GENERAL: Denies chills, fatigue, malaise, fever, sweats, travel HEENT: Denies sinus pain, ear pain, sore throat, difficulty swallowing, neck pain RESPIRATORY: See HPI CARDIOVASCULAR: Denies chest pain, palpitations, orthopnea, edema GASTROINTESTINAL: See HPI : Denies dysuria, frequency, incontinence, hematuria, urinary retention, flank pain. MUSCULOSKELETAL: Denies weakness, joint pain, or bony pain SKIN: No rash, no erythema, no pruritus NEUROLOGIC: Denies weakness, dizziness, headache, numbness, change in speech, confusion PSYCHIATRIC: No concerning psychosocial issues. 12 point review of systems is negative except for those stated above and HPI Patient History Medical History Bladder cancer Chicken pox (~1957) Chronic back pain CIS (carcinoma in situ of bladder) Controlled type 2 diabetes mellitus without complication Coronary artery disease Depression Easy bruisability Hearing loss History of primary bladder cancer HTN (hypertension) Measles (~1958) Mixed hyperlipidemia Myocardial infarction Peripheral neuropathy Pneumonia Sleep apnea with use of continuous positive airway pressure (CPAP) Thin skin Tinnitus Wears glasses Surgical History Anesthesia H/O cystoscopy History of surgery (04/04/19) Hx of arthroscopy of right knee Hx of heart artery stent Hx of shoulder surgery (~2013) Hx of tonsillectomy 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) Family History Sister Breast cancer Father History of heart disease COPD (chronic obstructive pulmonary disease) Mother Stroke Brother History of heart disease Social History household members: spouse Smoking Status: Never smoker alcohol intake: never substance use type: does not use Smoking Status: Never smoker Substance Use Type: marijuana Exam Initial Vital Signs Initial Vital Signs: Vital Signs Temperature 97.7 F 09/04/20 13:45 Pulse Rate 100 H 09/04/20 13:45 Respiratory Rate 26 H 09/04/20 13:45 Blood Pressure 107/79 09/04/20 13:45 Pulse Oximetry 97 09/04/20 13:45 GENERAL: Alert slightly pale 70-year-old male HEENT: Head atraumatic,EOMI, pupils reactive, face symmetric, moist mucous membranes CARDIOVASCULAR: Regular rate and rhythm without murmurs, rubs or gallops. RESPIRATORY: Breath sounds equal bilaterally, no wheezes rales or rhonchi. ABDOMEN: Soft, nontender. Normoactive bowel sounds all 4 quadrants. No guarding or rebound. EXTREMITIES: Normal range of motion, no clubbing or edema. Neurovascularly intact NEUROLOGICAL: Alert and oriented x4.Normal gait and speech. SKIN: Warm, dry, no laceration, no petechiae, no rashes or lesions. Course Orders Ordered: Discontinued Medications Heparin Sodium (Porcine) (Heparin 500 Unit/5 Ml Port Flush) 500 unit IV PRN PRN PRN Reason: Flush Last Admin: 09/04/20 18:15 Dose: 500 unit Documented by: ROLANDO Sodium Chloride (Normal Saline 0.9%) 1,000 mls @ 1,000 mls/hr IV BOLUS ONE Stop: 09/04/20 14:49 Last Infusion: 09/04/20 15:10 Dose: 0 mls/hr Documented by: Admin: 09/04/20 14:08 Dose: 1,000 mls/hr Documented by: ARISTIDES Ondansetron HCl (Ondansetron 4 Mg/2 Ml Inj) 4 mg IV NOW ONE Stop: 09/04/20 13:51 Last Admin: 09/04/20 14:08 Dose: 4 mg Documented by: ARISTIDES Oxycodone/Acetaminophen (Oxycodone/Acetaminophen 5/325 Tablet) 2 tab PO NOW ONE Stop: 09/04/20 14:47 Last Admin: 09/04/20 15:15 Dose: 2 tab Documented by: ARISTIDES Vital Signs Vital signs: Vital Signs - 8 hr 09/04/20 13:45 Temperature 97.7 F Pulse Rate 100 H Respiratory Rate 26 H Blood Pressure 107/79 Pulse Oximetry 97 MDM - SOB/Dyspnea Lab Data Result diagrams: 09/04/20 13:45 09/04/20 13:45 Labs: Lab Results 09/04/20 09/04/20 09/04/20 Range/Units 13:45 13:45 13:45 WBC 8.7 (4.5-11.0) X10^3/uL RBC 4.13 L (4.5-5.9) X10^6/uL Hgb 13.7 (13.5-17.5) g/dL Hct 40.1 L (41-53) % MCV 97.2 (80-100) fL MCH 33.3 (26-34) PG MCHC 34.2 (30-36) % RDW 13.2 (11.6-14.8) % Plt Count 190 (150-400) X10^3/uL Neut % (Auto) 47.5 L (50-75) % Lymph % (Auto) 35.2 (25-40) % Cache % (Auto) 10.4 (3-14) % Eos % (Auto) 6.0 H (2-4) % Baso % (Auto) 0.9 (0-2) % Neut # (Auto) 4100 (2525-7876) /uL Lymph # (Auto) 3100 (5796-6153) /uL Cache # (Auto) 900 (0-900) /uL Eos # (Auto) 500 H (0-450) /uL Baso # (Auto) 100 (0-100) /uL Sodium 129 L (137-145) mmol/L Potassium 3.7 (3.4-5.1) mmol/L Chloride 96 L (98-107) mmol/L Carbon Dioxide 23 (22-32) mmol/L BUN 20 (9-20) mg/dL Creatinine 1.11 (0.66-1.25) mg/dL Estimated GFR > 60.0 (>60) mL/min BUN/Creatinine Ratio 18.0 (6-22) Glucose 114 H (80-110) mg/dL Lactate 1.3 (0.7-2.1) mmol/L Calcium 10.2 (8.4-10.2) mg/dL Total Bilirubin 0.8 (0.2-1.3) mg/dL AST 31 (17-59) IU/L ALT 16 (<50) IU/L Alkaline Phosphatase 64 (38-126) U/L Total Creatine Kinase (55-170) U/L CK-MB (CK-2) (<2.37) ng/mL CK-MB (CK-2) Rel Index (1.5-5.0) % Troponin I (0.01-0.034) ng/mL NT-Pro-B Natriuret Pep (<125) pg/mL Total Protein 6.9 (6.3-8.2) g/dL Albumin 4.0 (3.5-5.0) g/dL Globulin 2.9 (1.7-4.1) g/dL Albumin/Globulin Ratio 1.4 (1.0-2.8) Lipase 39 (23-300) U/L Procalcitonin 0.09 (<0.5) ng/mL 09/04/20 Range/Units 13:45 WBC (4.5-11.0) X10^3/uL RBC (4.5-5.9) X10^6/uL Hgb (13.5-17.5) g/dL Hct (41-53) % MCV (80-100) fL MCH (26-34) PG MCHC (30-36) % RDW (11.6-14.8) % Plt Count (150-400) X10^3/uL Neut % (Auto) (50-75) % Lymph % (Auto) (25-40) % Cache % (Auto) (3-14) % Eos % (Auto) (2-4) % Baso % (Auto) (0-2) % Neut # (Auto) (4368-3112) /uL Lymph # (Auto) (7148-5844) /uL Cache # (Auto) (0-900) /uL Eos # (Auto) (0-450) /uL Baso # (Auto) (0-100) /uL Sodium (137-145) mmol/L Potassium (3.4-5.1) mmol/L Chloride (98-107) mmol/L Carbon Dioxide (22-32) mmol/L BUN (9-20) mg/dL Creatinine (0.66-1.25) mg/dL Estimated GFR (>60) mL/min BUN/Creatinine Ratio (6-22) Glucose (80-110) mg/dL Lactate (0.7-2.1) mmol/L Calcium (8.4-10.2) mg/dL Total Bilirubin (0.2-1.3) mg/dL AST (17-59) IU/L ALT (<50) IU/L Alkaline Phosphatase (38-126) U/L Total Creatine Kinase 115 (55-170) U/L CK-MB (CK-2) 2.11 (<2.37) ng/mL CK-MB (CK-2) Rel Index 1.8 (1.5-5.0) % Troponin I < 0.012 (0.01-0.034) ng/mL NT-Pro-B Natriuret Pep 31 (<125) pg/mL Total Protein (6.3-8.2) g/dL Albumin (3.5-5.0) g/dL Globulin (1.7-4.1) g/dL Albumin/Globulin Ratio (1.0-2.8) Lipase (23-300) U/L Procalcitonin (<0.5) ng/mL Point of Care Testing Glucose POC 96 Urine Dip Bedside Urine Glucose Negative Bedside Urine Bilirubin - Negative Bedside Urine Ketone +/- 5 Urine Specific Stockett 1.010 Bedside Urine Occult Blood - Negative Bedside Urine pH 6 Bedside Urine Protein - Negative Bedside Urine Urobilinogen - Negative Bedside Urine Nitrite - Negative Bedside Urine Leukocytes - Negative Esterase Imaging Data Chest x-ray: Radiologist's Impression: PROCEDURE: XR CHEST 1V INDICATIONS: suspected sepsis TECHNIQUE: One view of the chest was acquired. COMPARISON: [facility], , XR CHEST 1V, 04/15/2019, 13:30. [facility], , XR CHEST 1V, 04/04/2019, 16:34. FINDINGS: Surgical changes and devices: Port-A-Cath from left-sided approach crosses the midline into the area of the azygos arch of the superior vena cava.. Lungs and pleura: Lungs are clear. No pleural effusions or pneumothorax. Mediastinum: Mediastinal contours appear normal. Heart size is normal. Bones and chest wall: No suspicious bony lesions. Overlying soft tissues appear unremarkable. IMPRESSION: Port-A-Cath in normal position, no pneumonia found. Chronic mild elevation of the right hemidiaphragm. Dictated by: Raj Bland M.D. on 09/04/2020 at 14:29 CT scan - abdomen/pelvis: Radiologist's Impression: PROCEDURE: CT ABDOMEN PELVIS W CON INDICATIONS: bladder cancer increased pain and vomiting TECHNIQUE: After the administration of intravenous contrast, axial sections acquired from the lung bases to the pubic symphysis. Coronal and sagittal reformats were performed. For radiation dose reduction, the following was used: automated exposure control, adjustment of mA and/or kV according to patient size. COMPARISON: [facility], CT, CT CHEST ABD PEL W CON, 03/19/2020, 14:17. FINDINGS: Image quality: Excellent. Lung bases: Subtle ground-glass opacities in the right middle lobe may represent subsegmental atelectasis or an infectious/inflammatory process. Heart: No significant findings. ABDOMEN: Liver: Unremarkable. Gallbladder: Gallbladder appears slightly distended, which is most likely related to the timing of the most recent meal. No acute inflammatory changes or calcified gallstones. Biliary ducts: Unremarkable. Pancreas: Unremarkable. Spleen: Unremarkable. Adrenal Glands: Unremarkable. Kidneys and Ureters: A 3 mm nonobstructing calculus is seen in the interpolar region of the right kidney. There is no hydronephrosis. No ureteral calculus is seen. Stomach and Bowel: Multiple diverticula are seen in the colon without signs of acute diverticulitis. There are no signs of bowel obstruction. The appendix appears normal. Peritoneum: No abnormal intraperitoneal fluid. No free air. Ventral Wall: Tiny fat containing periumbilical hernia. Abdominal Nodes: No retroperitoneal or mesenteric adenopathy by size criteria. Vessels: Aorta and inferior vena cava are normal in size. Mild aortic atherosclerotic calcifications. PELVIS: Pelvic Organs: Unremarkable. Bladder: No focal masslike bladder wall thickening is identified. Pelvic Nodes: No enlarged lymph nodes. Miscellaneous: No hernias are seen. Bones: Degenerative changes are seen in the included spine and the sacroiliac joints. No suspicious osteolytic or osteoblastic lesion. IMPRESSION: 1. No acute abnormality in the abdomen or pelvis to explain the reported symptoms. 2. Colonic diverticulosis without signs of acute diverticulitis. 3. Nonobstructing 3 mm calculus in the interpolar region of the right kidney. No hydronephrosis. 4. No significant lymphadenopathy in the abdomen or pelvis or signs of distant metastatic disease. 5. Subtle ground-glass opacities in the right middle lobe are most likely infectious or inflammatory in etiology. Please see separate report from CT pulmonary angiogram performed the same day for detailed review of intrathoracic findings. Dictated by: Edgar Madison M.D. on 09/04/2020 at 14:56 CT scan - chest: Radiologist's Impression: PROCEDURE: CT ANGIO CHEST PE PROTOCOL INDICATIONS: sob with cancer TECHNIQUE: After the administration of intravenous contrast, 2 mm thick sections acquired from the pulmonary apices to the posterior costophrenic angles. 3-dimensional maximum intensity projection (MIP) coronal and sagittal reformats were then acquired through the thorax. For radiation dose reduction, the following was used: automated exposure control, adjustment of mA and/or kV according to patient size. COMPARISON: [facility], CT, CT CHEST ABD PEL W CON, 03/19/2020, 14:17. [facility], CT, CT CHEST ABD PEL W CON, 03/30/2019, 13:27. [facility], CR, XR CHEST 1V, 09/04/2020, 14:04. FINDINGS: Image quality: Excellent. Pulmonary arteries: Pulmonary arteries are normal in size, and demonstrate no intraluminal filling defects to suggest central pulmonary embolism. Lungs and pleura: Very minimal appearance of streaky and nodular opacities are noted within the right middle lobe, new compared to 2019 and more prominent compared to 03/19/2020. No pleural effusions or pneumothorax. Central and peripheral airways are patent. Mediastinum: Heart size is normal, without pericardial effusion. No mediastinal or hilar adenopathy. Thoracic aorta is normal in caliber and enhancement. Esophagus is normal in caliber, without hiatal hernia. Bones and chest wall: No suspicious bony lesions. Ribs and thoracic spine appear intact throughout. Thyroid gland is unremarkable. No axillary or supraclavicular adenopathy. Abdomen: Visualized upper abdominal solid organs appear normal in the early arterial phase of enhancement. IMPRESSION: 1. No pulmonary embolism. 2. Small streaky opacities within the lateral aspect of the right middle lobe more prominent when compared to prior exam. Appearance is suggestive of infection or inflammation including atypical etiology such as fungal or mycobacterial. Given history of prior bladder malignancy, metastatic disease cannot be excluded although appearance is not characteristic. Short interval imaging follow-up is recommended to document resolution. Dictated by: Nery Rivera M.D. on 09/04/2020 at 15:46 ECG Data Interpretation: Sinus tachycardia rate 102 [place] interval 160 QRS 108 QTC 508 Q-waves noted in anterior septal leads partial right bundle branch block as no ST changes no priors to compare MDM Narrative Medical decision making narrative: The patient is having nausea vomiting possibly from the medication. Also today is now complaining of severe shortness of breath initially looked pale however hemoglobin hematocrit are is within normal limits and he has no history of black stools or blood loss. With new cancer concern for PE. CT angio does not show any pulmonary embolism. His CT abdomen pelvis did not show any new masses or cause for nausea or vomiting. Blood work is overall reassuring. He is tolerating oral fluids. He ambulated in the ED without any difficulty. At this time will discharge him with anti nausea medication. Educated both he and with oral rehydration technique. Discharge Plan Departure Patient Disposition: Home Clinical Impression: Nausea & vomiting Qualifiers: Vomiting type: unspecified Vomiting Intractability: non-intractable Qualified Code(s): R11.2 - Nausea with vomiting, unspecified Instructions: DI for Vomiting -- Adult Activity Restrictions/Additional Instructions: *You have been diagnosed with nausea vomiting likely related to his chemotherapy *What to do: Blood work and CT scans are overall reassuring however sodium is slightly low. Please have this rechecked later this week. Increase fluids as tolerated I recommend Gatorade or Gatorade like product *Continue to take medications as directed Zofran 4 mg every 8 hours if needed for nausea or vomiting-->[facility] *Follow up with your primary care provider in 2-3 days *Return to ER if you should have persistent vomiting inability to what tolerate fluids, dizziness lightheadedness worsening shortness of breath or any new, worsening or concerning symptoms Prescriptions: New ondansetron 4 mg tablet,disintegrating 4 mg PO Q6HR PRN (Reason: nausea and vomiting) Qty: 10 RF: 0 No Action gabapentin [Neurontin] 600 MG tablet 1,200 mg PO TID Qty: 0 RF: 0 aspirin 81 MG tablet,delayed release (DR/EC) 81 mg PO QDAY Qty: 0 RF: 0 zolpidem [Ambien] 10 MG tablet 10 mg PO HS Qty: 0 RF: 0 multivitamin [Multiple Vitamins] 1 EACH tablet 1 tab PO QDAY Qty: 0 RF: 0 metoprolol succinate [Toprol XL] 50 mg tablet extended release 24 hr 50 mg PO .QHS Qty: 30 RF: 6 lisinopril [Zestril] 5 mg tablet 5 mg PO BEDTIME Qty: 30 RF: 6 atorvastatin 40 mg tablet 40 mg PO HS Qty: 30 RF: 6 bupropion HCl 150 mg tablet sustained-release 12 hr 150 mg PO BID Qty: 180 RF: 3 duloxetine 60 mg capsule,delayed release(DR/EC) 60 mg PO QNOON Qty: 90 RF: 3 oxycodone-acetaminophen 10-325 mg Tablet 1 tab PO Q4-6H PRN (Reason: Bladder cancer) Qty: 120 RF: 0 tramadol 50 mg tablet 50 mg PO Q6H PRN (Reason: pain) Qty: 14 RF: 0 Referrals: Jeffrey Hudson MD [Primary Care Provider] -
[2020-09-04] MEDS: OXYCODONE/ACETAMINOPHEN 5/325 TABLET 2 TAB PO (15:15)
[2020-09-04 16:00] VITALS: BP 102/66; PULSE 88; RESP 17; O2SAT 98
[2020-09-04 17:00] VITALS: BP 101/63; PULSE 92; RESP 17; O2SAT 96
[2020-09-04 18:00] VITALS: BP 100/53; PULSE 99; RESP 18; O2SAT 100
[2020-09-04 18:16] VITALS: BP 100/53; RESP 16; O2SAT 97
== END 2020-09-04 18:37 | disposition home or self-care (01) ==
PROVIDERS: Emergency Provider Emergency Medicine; PCP Internal Medicine; Referring Provider Emergency Medicine
DX: R11.2 Nausea with vomiting, unspecified (principal); R06.02 Shortness of breath; R00.0 Tachycardia, unspecified
CPT/HCPCS: 36415; 71045; 71275; 74177; 80053; 81003; 82550; 82553; 83605; 83690; 83880; 84145; 84484; 85025; 87040; 93005; 93010; 96361; 96374; 99284; J1642; J2405; Q9967

== ENCOUNTER 2020-09-10 15:37 | Inpatient (IN) | payer MEDICARE, BC, SELFPAY ==
[2020-09-10] VITALS (16 sets, daily range): BP systolic 62–97; BP diastolic 46–64; PULSE 68–98; RESP 12–18; TEMP 36.2–36.6; O2SAT 72–98; BMI 31.4
--- NOTE | 2020-09-10 16:00 | ED.RECABL ---
HPI - Recheck/Abnormal Lab/Rx General Chief Complaint: Recheck/Abnormal Lab/Rx Stated Complaint: ABNORMAL LABS CONFUSION Time Seen by Provider: 09/10/20 15:41 Source: patient Mode of arrival: Wheelchair History of Present Illness HPI narrative: 70-year-old male nonsmoker with history of coronary artery disease and bladder cancer as well as hypertension and hyperlipidemia presents with family for evaluation of dizziness, weakness, confusion and poor appetite over the past 1-2 weeks. He was evaluated by his oncologist today who noted sodium of 125 and a bump in his kidney function and he was sent here for evaluation. He has had very little to eat or drink over that past 10 days. He has had no fever or chills. He has no focal findings such as numbness, tingling or weakness. Related Data Home Medications Medication Instructions Recorded Confirmed aspirin 81 mg tablet,delayed 81 mg PO QDAY #0 04/18/16 09/10/20 release gabapentin 600 mg tablet 1,200 mg PO TID #0 04/18/16 09/10/20 (Neurontin) multivitamin (Multiple Vitamins) 1 tab PO QDAY #0 04/18/16 09/10/20 Previous Rx's Medication Instructions Recorded duloxetine 60 mg capsule,delayed 60 mg PO QNOON #90 cap 03/22/20 release tramadol 50 mg tablet 50 mg PO Q6H PRN #14 tab 05/18/20 atorvastatin 40 mg tablet 40 mg PO HS #30 tab 06/12/20 lisinopril 5 mg tablet (Zestril) 5 mg PO BEDTIME #30 tab 06/12/20 metoprolol succinate 50 mg 50 mg PO .QHS #30 tab 06/12/20 tablet,extended release 24 hr (Toprol XL) bupropion HCl 150 mg tablet,12 hr 150 mg PO BID #180 ea 07/06/20 sustained-release oxycodone-acetaminophen 10 mg-325 1 tab PO Q4-6H PRN #120 tab 08/21/20 mg tablet ondansetron 4 mg disintegrating 4 mg PO Q6HR PRN #10 tab 09/04/20 tablet prednisone 20 mg tablet 60 mg PO DAILY #42 tab 09/06/20 zolpidem 10 mg tablet (Ambien) 10 mg PO HS PRN #30 tab 09/06/20 Allergies Allergy/AdvReac Type Severity Reaction Status Date / Time Sulfa (Sulfonamide Allergy Unknown Unknown Verified 09/10/20 15:46 Antibiotics) reaction [SULFA (SULFONAMIDE per patient ANTIBIOTICS)] morphine AdvReac Severe Delirium, Verified 09/10/20 15:46 constipation prednisone AdvReac Intermediate Psychosis Verified 09/10/20 19:03 erythromycin base AdvReac Mild VOMITING Verified 09/10/20 15:46 [ERYTHROMYCIN BASE] tetracycline [TETRACYCLINE] AdvReac Mild VOMITING Verified 09/10/20 15:46 Review of Systems Review of Systems Narrative: GENERAL: See HPI HEENT: Denies sinus pain, ear pain, sore throat, difficulty swallowing, dizziness. RESPIRATORY: Denies dyspnea, cough, wheezing, hemoptysis, sputum. CARDIOVASCULAR: Denies chest pain, palpitations, orthopnea, edema, GASTROINTESTINAL: See HPI. : Denies dysuria, frequency, incontinence, hematuria, urinary retention. MUSCULOSKELETAL: denies weakness, joint pain, or bony pain SKIN: Denies rash, skin lesions, or other NEUROLOGIC: Denies weakness, headache, numbness, change in speech, confusion, seizures, incoordination. PSYCHIATRIC: No concerning psychosocial issues. 12 point review of systems is negative except for those stated above Patient History Medical History Bladder cancer Chicken pox (~1957) Chronic back pain CIS (carcinoma in situ of bladder) Controlled type 2 diabetes mellitus without complication Coronary artery disease Depression Easy bruisability Hearing loss History of primary bladder cancer HTN (hypertension) Measles (~1958) Mixed hyperlipidemia Myocardial infarction Peripheral neuropathy Pneumonia Sleep apnea with use of continuous positive airway pressure (CPAP) Thin skin Tinnitus Wears glasses Surgical History Anesthesia H/O cystoscopy History of surgery (04/04/19) Hx of arthroscopy of right knee Hx of heart artery stent Hx of shoulder surgery (~2013) Hx of tonsillectomy 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) Family History Sister Breast cancer Father History of heart disease COPD (chronic obstructive pulmonary disease) Mother Stroke Brother History of heart disease Social History household members: spouse and family Smoking Status: Never smoker alcohol intake: never substance use type: does not use Smoking Status: Never smoker Substance Use Type: marijuana Exam Narrative Exam Narrative: GENERAL: [70] year old patient appears stated age. Well-developed patient, in mild distress. GCS 14 (confused) HEAD: Atraumatic. Normocephalic. EYES: Pupils equal round and reactive. Extraocular motions intact. No scleral icterus. No injection or drainage. ENT: Dry mucous membranes Nose without bleeding, purulent drainage. Throat without erythema, tonsillar hypertrophy or exudate. Airway patent. NECK: Trachea midline. Non tender CARDIOVASCULAR: Regular rate and rhythm without murmurs, gallops, or rubs. RESPIRATORY: Clear to auscultation. Breath sounds equal bilaterally. No wheezes, rales, or rhonchi. GASTROINTESTINAL: Abdomen soft, non-tender, nondistended. EXTREMITIES: No edema or joint tenderness. BACK: Nontender without deformity or crepitance. No flank tenderness. NEURO: AOx3. SKIN: Poor skin turgor, no rash or erythema of visible areas Initial Vital Signs Initial Vital Signs: Vital Signs Temperature 97.1 F L 09/10/20 15:40 Pulse Rate 98 H 09/10/20 15:40 Respiratory Rate 12 09/10/20 15:40 Blood Pressure 62/46 L 09/10/20 15:40 Pulse Oximetry 98 09/10/20 15:40 Course Orders Ordered: ED Orders 09/11/20 08:00 Urinalysis and Microscopic Stat Acetaminophen (Acetaminophen 325 Mg Tablet) 650 mg PO Q6HR PRN PRN Reason: Fever/Mild Pain (1-3) Aspirin (Aspirin Ec 81 Mg Tablet) 81 mg PO DAILY [facility] Last Admin: 09/11/20 08:24 Dose: 81 mg Documented by: MARY Atorvastatin Calcium (Atorvastatin 20 Mg Tablet) 40 mg PO BEDTIME [facility] Last Admin: 09/10/20 21:30 Dose: 40 mg Documented by: GUILLERMINA Bupropion HCl (Bupropion Sr 150 Mg Tab) 150 mg PO BID [facility] Last Admin: 09/11/20 08:25 Dose: 150 mg Documented by: Admin: 09/10/20 21:30 Dose: Not Given Documented by: GUILLERMINA Dextrose (Dextrose 50 % In Water 25 Gm/50 Ml Syringe) 25 gm IV PRN PRN PRN Reason: Hypoglycemia Duloxetine HCl (Duloxetine 30 Mg Capsule) 60 mg PO QNOON [facility] Enoxaparin Sodium (Enoxaparin 30 Mg/0.3 Ml Syringe) 30 mg SUBCUT DAILY [facility] Last Admin: 09/11/20 08:23 Dose: 30 mg Documented by: MARY Heparin Sodium (Porcine) (Heparin 500 Unit/5 Ml Port Flush) 500 unit IV PRN PRN PRN Reason: Flush Sodium Chloride (Normal Saline 0.9%) 1,000 mls @ 125 mls/hr IV CONT [facility] Last Admin: 09/11/20 06:18 Dose: 125 mls/hr Documented by: Infusion: 09/11/20 02:48 Dose: 125 mls/hr Documented by: Admin: 09/10/20 18:48 Dose: 125 mls/hr Documented by: GUILLERMINA Insulin Human Lispro (Insulin Lispro 100 Unit/Ml 3ml Vial) 0 unit SUBCUT ACHS [facility]; Protocol Last Admin: 09/11/20 08:24 Dose: Not Given Documented by: Admin: 09/10/20 21:04 Dose: Not Given Documented by: GUILLERMINA Magnesium Oxide (Magnesium Oxide 400 Mg Tablet) 400 mg PO BID [facility] Methylprednisolone (Methylprednisolone 40 Mg/Ml Vial) 40 mg IV Q12HR [facility] Last Admin: 09/11/20 00:46 Dose: 40 mg Documented by: ALFRED Naloxone HCl (Naloxone 0.4 Mg/Ml Vial) 0.2 mg IV Q2MIN PRN PRN Reason: Opiate Reversal Ondansetron HCl (Ondansetron 4 Mg/2 Ml Inj) 4 mg IV Q8HR PRN PRN Reason: Nausea And Vomiting Oxycodone HCl (Oxycodone Ir 5 Mg Tablet) 5 mg PO Q6HR PRN PRN Reason: Pain, Moderate (4-6) Last Admin: 09/11/20 08:27 Dose: 5 mg Documented by: Admin: 09/10/20 18:49 Dose: 5 mg Documented by: GUILLERMINA Sodium Chloride (Sodium Chloride 0.9% Flush) 10 ml IV PRN PRN PRN Reason: Flush Sodium Chloride (Sodium Chloride 0.9% Flush) 10 ml IV BID [facility] Last Admin: 09/11/20 08:24 Dose: Not Given Documented by: MARY Zolpidem Tartrate (Zolpidem 5 Mg Tablet) 10 mg PO BEDTIME PRN PRN Reason: Sleep Last Admin: 09/10/20 21:30 Dose: 10 mg Documented by: GUILLERMINA Discontinued Medications Sodium Chloride (Normal Saline 0.9%) 1,000 mls @ 1,000 mls/hr IV BOLUS ONE Stop: 09/10/20 17:07 Last Infusion: 09/10/20 17:29 Dose: 0 mls/hr Documented by: Admin: 09/10/20 16:15 Dose: 1,000 mls/hr Documented by: JANEEN Magnesium Sulfate (Magnesium Sulfate) 2 gm in 50 mls @ 25 mls/hr IV NOW ONE Stop: 09/10/20 20:21 Last Infusion: 09/11/20 00:06 Dose: 0 mls/hr Documented by: ALFRED Cosigned by: GUILLERMINA Admin: 09/10/20 18:48 Dose: 25 mls/hr Documented by: GUILLERMINA Cosigned by: ML Vital Signs Vital signs: Vital Signs - 8 hr 09/10/20 15:40 09/10/20 15:56 09/10/20 15:57 Temperature 97.1 F L Pulse Rate 98 H 68 77 Respiratory Rate 12 Blood Pressure 62/46 L 75/48 L 77/51 L Pulse Oximetry 98 94 91 09/10/20 16:00 09/10/20 16:10 09/10/20 16:15 Temperature Pulse Rate 92 H 91 H 90 Respiratory Rate Blood Pressure 74/51 L 71/50 L 83/50 L Pulse Oximetry 93 94 97 09/10/20 16:30 09/10/20 16:45 09/10/20 17:00 Temperature Pulse Rate 89 86 86 Respiratory Rate 16 15 17 Blood Pressure 86/49 L 89/52 L 92/54 L Pulse Oximetry 92 72 L 89 L 09/10/20 17:16 09/10/20 17:28 09/10/20 17:30 Temperature Pulse Rate 85 88 89 Respiratory Rate 17 16 13 Blood Pressure 95/64 96/55 L 96/52 L Pulse Oximetry 94 95 95 MDM - Recheck/Abnormal Lab/Rx Lab Data Result diagrams: 09/11/20 06:00 Labs: Lab Results 09/10/20 09/10/20 09/10/20 Range/Units 14:10 14:10 16:11 Sodium (137-145) mmol/L Potassium (3.4-5.1) mmol/L Chloride (98-107) mmol/L Carbon Dioxide (22-32) mmol/L BUN (9-20) mg/dL Creatinine (0.66-1.25) mg/dL Estimated GFR (>60) mL/min BUN/Creatinine Ratio (6-22) Glucose (80-110) mg/dL Lactate 1.1 (0.7-2.1) mmol/L Calcium (8.4-10.2) mg/dL Total Creatine Kinase 143 (55-170) U/L CK-MB (CK-2) 2.17 (<2.37) ng/mL CK-MB (CK-2) Rel Index 1.5 (1.5-5.0) % Troponin I < 0.012 (0.01-0.034) ng/mL NT-Pro-B Natriuret Pep 32 (<125) pg/mL Lipase 30 (23-300) U/L SARS-CoV-2 (PCR) (Negative) 09/10/20 09/10/20 Range/Units 16:18 17:42 Sodium 124 L (137-145) mmol/L Potassium 4.4 (3.4-5.1) mmol/L Chloride 93 L (98-107) mmol/L Carbon Dioxide 24 (22-32) mmol/L BUN 29 H (9-20) mg/dL Creatinine 1.64 H (0.66-1.25) mg/dL Estimated GFR 41.9 L (>60) mL/min BUN/Creatinine Ratio 17.7 (6-22) Glucose 92 (80-110) mg/dL Lactate (0.7-2.1) mmol/L Calcium 9.5 (8.4-10.2) mg/dL Total Creatine Kinase (55-170) U/L CK-MB (CK-2) (<2.37) ng/mL CK-MB (CK-2) Rel Index (1.5-5.0) % Troponin I (0.01-0.034) ng/mL NT-Pro-B Natriuret Pep (<125) pg/mL Lipase (23-300) U/L SARS-CoV-2 (PCR) Negative (Negative) Discharge Plan Departure Patient Disposition: Admitted As Inpatient Clinical Impression: Hyponatremia, Hypotension Admit Date/Time: 09/10/20 18:03 Admit Provider: Jeffrey Hudson
[2020-09-10 16:08] LABS: Creatine Kinase 143 U/L (55-170); Lipase 30 U/L (23-300)
[2020-09-10] MEDS: SODIUM CHLORIDE 0.9% 1,000 ML 1000 ML IV (16:15)
[2020-09-10 16:21] LABS: NT-proBNP (BNP-Adult 18+) 32 pg/mL (<125); Troponin I < 0.012 ng/mL (0.01-0.034)
[2020-09-10 16:23] LABS: CKMB % Relative Index 1.5 % (1.5-5.0); Creatine Kinase MB 2.17 ng/mL (<2.37)
[2020-09-10 16:30] LABS: Lactate (Lactic Acid) 1.1 mmol/L (0.7-2.1)
[2020-09-10 17:25] LABS: COVID19 - ADMIT (NP swab/PCR) Negative (Negative)
[2020-09-10 18:01] LABS: BUN Creatinine Ratio 17.7 (6-22); Blood Urea Nitrogen 29 mg/dL (9-20); Calcium 9.5 mg/dL (8.4-10.2); Carbon Dioxide 24 mmol/L (22-32); Chloride 93 mmol/L (98-107); Estimated Glomerular Filt Rate 41.9 mL/min (>60); Glucose 92 mg/dL (80-110); HEMOLYSIS < 15 (0-50); Potassium 4.4 mmol/L (3.4-5.1); Sodium 124 mmol/L (137-145)
--- NOTE | 2020-09-10 18:13 | P.HP_ITS ---
History of Present Illness History of Present Illness Date Patient Seen: 09/10/20 Time Patient Seen: 18:13 Chief complaint: ABNORMAL LABS CONFUSION Narrative: 70-year-old male not well known to me, only seen twice in March of this year. Long history of bladder cancer being treated with pembrolizumab, most recent dose on August 16 Patient has had 2+ weeks of very limited oral intake including fluids as well as food. He has become increasingly weak and increasingly disoriented and confused. Patient reports nausea not necessarily associated with eating. Is really had absolutely no appetite family's been unable to get him to eat or drink much of anything. Was seen in the oncology clinic today and referred to the ER for evaluation. Oncology felt like his symptoms most likely related to immune mediated complications of his Keytruda Patient is admitted for correction of his electrolyte and renal abnormalities as well as rehydration etcetera Of note patient was profoundly hypotensive in the ER required fluid resuscitation and seems to have stabilized with that. Patient History Medical History Bladder cancer Chicken pox (~1957) Chronic back pain CIS (carcinoma in situ of bladder) Controlled type 2 diabetes mellitus without complication Coronary artery disease Depression Easy bruisability Hearing loss History of primary bladder cancer HTN (hypertension) Measles (~1958) Mixed hyperlipidemia Myocardial infarction Peripheral neuropathy Pneumonia Sleep apnea with use of continuous positive airway pressure (CPAP) Thin skin Tinnitus Wears glasses Surgical History Anesthesia H/O cystoscopy History of surgery (04/04/19) Hx of arthroscopy of right knee Hx of heart artery stent Hx of shoulder surgery (~2013) Hx of tonsillectomy 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) Family & Social History Family History Sister Breast cancer Father History of heart disease COPD (chronic obstructive pulmonary disease) Mother Stroke Brother History of heart disease Social History: household members spouse Safety & Behavioral: Feels Safe in Current Yes Environment Been Physically Hurt or No Threatened By a Person Tobacco & Substance use: Smoking Status Never smoker alcohol intake never Substance Use Type marijuana Meds Home Medications and Allergies Home Medications Medication Instructions Recorded Confirmed Type aspirin 81 mg tablet,delayed 81 mg PO QDAY #0 04/18/16 09/10/20 History release gabapentin 600 mg tablet 1,200 mg PO TID #0 04/18/16 09/10/20 History (Neurontin) multivitamin (Multiple Vitamins) 1 tab PO QDAY #0 04/18/16 09/10/20 History duloxetine 60 mg capsule,delayed 60 mg PO QNOON #90 cap 03/22/20 09/10/20 Rx release tramadol 50 mg tablet 50 mg PO Q6H PRN #14 tab 05/18/20 09/10/20 Rx atorvastatin 40 mg tablet 40 mg PO HS #30 tab 06/12/20 09/10/20 Rx lisinopril 5 mg tablet (Zestril) 5 mg PO BEDTIME #30 tab 06/12/20 09/10/20 Rx metoprolol succinate 50 mg 50 mg PO .QHS #30 tab 06/12/20 09/10/20 Rx tablet,extended release 24 hr (Toprol XL) bupropion HCl 150 mg tablet,12 hr 150 mg PO BID #180 ea 07/06/20 09/10/20 Rx sustained-release oxycodone-acetaminophen 10 mg-325 1 tab PO Q4-6H PRN #120 tab 08/21/20 09/10/20 Rx mg tablet ondansetron 4 mg disintegrating 4 mg PO Q6HR PRN #10 tab 09/04/20 09/10/20 Rx tablet prednisone 20 mg tablet 60 mg PO DAILY #42 tab 09/06/20 09/10/20 Rx zolpidem 10 mg tablet (Ambien) 10 mg PO HS PRN #30 tab 09/06/20 09/10/20 Rx Allergies Allergy/AdvReac Type Severity Reaction Status Date / Time Sulfa (Sulfonamide Allergy Unknown Unknown Verified 09/10/20 15:46 Antibiotics) reaction [SULFA (SULFONAMIDE per patient ANTIBIOTICS)] morphine AdvReac Severe Delirium, Verified 09/10/20 15:46 constipation prednisone AdvReac Intermediate Psychosis Verified 09/10/20 19:03 erythromycin base AdvReac Mild VOMITING Verified 09/10/20 15:46 [ERYTHROMYCIN BASE] tetracycline [TETRACYCLINE] AdvReac Mild VOMITING Verified 09/10/20 15:46 Review of Systems Constitutional Constitutional: Reports anorexia, Denies excessive sweating, Denies fever(s), Denies headache(s), Reports lethargy, Reports malaise, Reports poor appetite, Reports weakness, Denies weight gain and Denies weight loss Eyes Eyes: Denies loss of vision ENT Ears, Nose, Mouth, and Throat: No change in voice, No dysphagia, Yes dizziness, No otalgia, No headache(s), No hoarseness, No lip swelling, No neck pain, Yes disequilibrium, No sore throat, No throat swelling and No tongue swelling Cardiovascular Cardiovascular: Denies chest pain, Denies syncope, Denies rapid heart rate, Denies irregular heart rhythm, Denies palpitations, Denies dyspnea, Denies dyspnea on exertion and Denies slow heart rate Respiratory Respiratory: Denies chest congestion, Denies cough, Denies hemoptysis, Denies dyspnea, Denies dyspnea on exertion, Denies stridor and Denies wheezing Gastrointestinal Gastrointestinal: Denies abdominal pain, Denies bloating, Denies change in bowel habits, Denies change in stool character, Denies dysphagia, Reports nausea, Reports vomiting and Denies hematemesis Musculoskeletal Musculoskeletal: Reports abnormal gait and Denies neck pain Neurologic Neurologic: Denies abnormal speech, Reports abnormal gait, Denies behavioral changes, Reports confusion, Reports dizziness, Denies syncope, Denies headache(s), Denies loss of vision, Denies memory loss, Denies seizure-like activity, Denies paresthesias, Reports disequilibrium and Reports weakness Psychiatric Psychiatric: Denies behavioral changes, Denies change in appetite, Reports confusion, Denies difficulty concentrating, Denies auditory hallucinations, Denies memory loss, Denies mood swings and Denies suicidal ideation Endocrine Endocrine: Denies excessive sweating and Denies palpitations Allergic/Immunologic Allergic/Immunologic: Denies lip swelling, Denies throat swelling, Denies tongue swelling and Denies wheezing Exam Vital Signs (past 8 hours): - 09/10/20 15:40 09/10/20 15:56 09/10/20 15:57 Temperature 97.1 F L Pulse Rate 98 H 68 77 Respiratory Rate 12 Blood Pressure 62/46 L 75/48 L 77/51 L Pulse Oximetry 98 94 91 09/10/20 16:00 09/10/20 16:10 09/10/20 16:15 Temperature Pulse Rate 92 H 91 H 90 Respiratory Rate Blood Pressure 74/51 L 71/50 L 83/50 L Pulse Oximetry 93 94 97 09/10/20 16:30 09/10/20 16:45 09/10/20 17:00 Temperature Pulse Rate 89 86 86 Respiratory Rate 16 15 17 Blood Pressure 86/49 L 89/52 L 92/54 L Pulse Oximetry 92 72 L 89 L 09/10/20 17:16 09/10/20 17:28 09/10/20 17:30 Temperature Pulse Rate 85 88 89 Respiratory Rate 17 16 13 Blood Pressure 95/64 96/55 L 96/52 L Pulse Oximetry 94 95 95 09/10/20 17:45 09/10/20 18:00 Temperature Pulse Rate 88 89 Respiratory Rate 16 14 Blood Pressure 86/52 L 94/50 L Pulse Oximetry 97 96 Oxygen Delivery Method Room Air Narrative Exam Narrative: Elderly male in no obvious distress lying in his hospital bed HEENT-unremarkable Neck-no lymphadenopathy no bruits Lungs-good breath sounds Heart-regular rate and rhythm Abdomen-soft nontender nondistended no pedal splenomegaly Extremities-no cyanosis clubbing or edema Neuro-alert oriented times to, oriented to self and place, does not recognize me although only seen me x2 in the past, moves all 4 extremities, gait not tested and no further specific testing undertaken Objective Labs Result Diagrams: 09/10/20 17:42 Labs: Laboratory Results - last 24 hr 09/10/20 09/10/20 09/10/20 14:10 14:10 16:11 Lactate 1.1 Total Creatine Kinase 143 CK-MB (CK-2) 2.17 CK-MB (CK-2) Rel Index 1.5 Troponin I < 0.012 NT-Pro-B Natriuret Pep 32 Lipase 30 SARS-CoV-2 (PCR) 09/10/20 16:18 Lactate Total Creatine Kinase CK-MB (CK-2) CK-MB (CK-2) Rel Index Troponin I NT-Pro-B Natriuret Pep Lipase SARS-CoV-2 (PCR) Negative Assessment & Plan Assessment & Plan narrative: 1. Hyponatremia-patient's are received IV fluids in the ER in the sense of trying to fluid resuscitate him given his volume depleted status. He will need to continue with IV fluids I would recommend using isotonic saline for that purpose both to support his intravascular volume as well as replace his sodium. He has been drifting down with his sodium over some time and hopefully he will tolerate slightly faster than average sodium replacement as he needs fluids more critically in my opinion 2. Hypomagnesemia-will replace with parental magnesium given his ongoing GI symptoms. Oral magnesium would not be well tolerated 3. GI-patient with diminished appetite in significantly reduced oral intake both the fluids and nutrition. I agree in absence of other findings most likely would be an immune related response to his Keytruda. I think some parental steroids would make sense. Family reports significant psychotic type reaction to prednisone orally in the past. Hopefully perhaps with hydration limited amount of parental corticosteroids we can turn this around without the long-term use of oral corticosteroids and running the risk of potential side effects. 4. Diabetes-unclear whether patient truly has diabetes or merely hyperglycemia. Had a normal hemoglobin A1c earlier in the year and I discontinued his metformin. We will place him on a carbohydrate consistent diet and follow fingerstick blood sugars with insulin as necessary to manage hyperglycemia 5. Coronary artery disease-patient is status post myocardial infarction but has been stable recently. Followed by [facility]. No evidence of active cardiac issue at this time. I have held his antihypertensive therapy including his metoprolol until we have replaced his volume and his blood pressure has stabilized etcetera. Hopefully with this could be re-initiated tomorrow 6. Chronic back pain-patient uses oxycodone as an outpatient and will continue that as needed as an inpatient here 7. VTE prophylaxis-patient good candidate for Lovenox which is been initiated. I initiated at renal dose until we have evidence of improving renal function after fluid volume replacement 8. Code status-patient should be full code in the setting of sudden cardiac or respiratory arrest which is not anticipated at this time Patient should be admitted to the hospital as a full inpatient. His hospitalization will likely span greater than 48 hours and 2 separate midnights
[2020-09-10] MEDS: SODIUM CHLORIDE 0.9% 1,000 ML 125 ML IV (18:48)
[2020-09-10] MEDS: MAGNESIUM SULFATE 2 GM/50 ML PIGGYBACK IV (18:48)
[2020-09-10] MEDS: OXYCODONE IR 5 MG TABLET PO (18:49)
[2020-09-10] MEDS: ATORVASTATIN 20 MG TABLET 40 MG PO (21:30)
[2020-09-10] MEDS: ZOLPIDEM 5 MG TABLET 10 MG PO (21:30)
--- NOTE | 2020-09-11 00:01 | PC.ADMIT ---
[email or web address] [facility] [place], [place] Admission Note: The patient,Mohit Bautista,70 y/o, was given written information regarding hospital policies, unit procedures and contact persons. Patient's smoking status: Never smoker. Vital Signs - 8 hr 09/10/20 16:10 09/10/20 16:15 09/10/20 16:30 Temperature Pulse Rate 91 H 90 89 Respiratory Rate 16 Blood Pressure 71/50 L 83/50 L 86/49 L Pulse Oximetry 94 97 92 09/10/20 16:45 09/10/20 17:00 09/10/20 17:16 Temperature Pulse Rate 86 86 85 Respiratory Rate 15 17 17 Blood Pressure 89/52 L 92/54 L 95/64 Pulse Oximetry 72 L 89 L 94 09/10/20 17:28 09/10/20 17:30 09/10/20 17:45 Temperature Pulse Rate 88 89 88 Respiratory Rate 16 13 16 Blood Pressure 96/55 L 96/52 L 86/52 L Pulse Oximetry 95 95 97 09/10/20 18:00 09/10/20 18:20 Temperature 97.5 F L Pulse Rate 89 86 Respiratory Rate 14 13 Blood Pressure 94/50 L 97/56 L Pulse Oximetry 96 93 Patient admitted from ED to under Dr. Hudson' care at 1615. Patient is alert and responds to name but is unable to answer any other orientation questions. Per family his mentation is already better than it was before coming to ED. Patient has accessed port, NS started at 125ml/hr for patient's dehydration and low sodium. Mag rider started for low mag. Patient has not voided, bladder scan done around 2200 shows ~100ml in bladder. Family states that patient has had zero food intake for multiple days, patient declines offered food. Patient is on RA satting mid 90's. HR NSR in 80s. BP is low but MAP >65, which is typical for patient per family.
[2020-09-11 00:45] VITALS: O2SAT 95
[2020-09-11 01:01] VITALS: BP 95/52
[2020-09-11 03:25] VITALS: BMI 31.4
[2020-09-11 04:00] VITALS: BP 96/58; PULSE 104; RESP 18; TEMP 36.4; O2SAT 94
[2020-09-11] MEDS: SODIUM CHLORIDE 0.9% 1,000 ML 125 ML IV ×3 (06:18→22:19)
[2020-09-11 06:32] LABS: BUN Creatinine Ratio 21.2 (6-22); Blood Urea Nitrogen 25 mg/dL (9-20); Calcium 10.1 mg/dL (8.4-10.2); Carbon Dioxide 20 mmol/L (22-32); Chloride 97 mmol/L (98-107); Estimated Glomerular Filt Rate > 60.0 mL/min (>60); Glucose 124 mg/dL (80-110); HEMOLYSIS < 15 (0-50); Magnesium 1.7 mg/dL (1.6-2.3); Potassium 4.1 mmol/L (3.4-5.1); Sodium 129 mmol/L (137-145)
--- NOTE | 2020-09-11 06:43 | PC.NURSE ---
Computer Programmer Chief Note-Patient remains confused, delayed speech, and has trouble following directions. 2 person assist to BSC at 0200, no void. Around 0400, patient set off bed alarm, stood up and urinated large amount on floor, unable to obtain UAC at that time. BP 90s/50s MAP 70s, VSS. Na+ this am is 129, Mg+ 1.7. has been in room.
[2020-09-11 08:00] VITALS: BP 128/82; PULSE 111; RESP 18; TEMP 36.1; O2SAT 98
--- NOTE | 2020-09-11 08:17 | P.PN_ITS ---
Subjective Subjective Date Patient Seen: 09/11/20 Time Patient Seen: 08:17 Interval history: Patient had an eventful evening still confused. Per spouse is little more oriented this morning. Vital signs have stabilized. Blood pressure near his normal. He has remained afebrile Patient really has no complaints himself Exam Vital Signs (past 8 hours): - 09/11/20 00:45 09/11/20 01:01 09/11/20 04:00 Temperature 97.5 F L Pulse Rate 104 H Respiratory Rate 18 Blood Pressure 95/52 L 96/58 L Pulse Oximetry 95 94 Oxygen Delivery Method Room Air Oxygen Flow Rate 0 Objective Labs Result Diagrams: 09/11/20 06:00 Labs: Laboratory Results - last 24 hr 09/10/20 09/10/20 09/10/20 14:10 14:10 16:11 Sodium Potassium Chloride Carbon Dioxide BUN Creatinine Estimated GFR BUN/Creatinine Ratio Glucose Lactate 1.1 Calcium Magnesium Total Creatine Kinase 143 CK-MB (CK-2) 2.17 CK-MB (CK-2) Rel Index 1.5 Troponin I < 0.012 NT-Pro-B Natriuret Pep 32 Lipase 30 SARS-CoV-2 (PCR) 09/10/20 09/10/20 09/11/20 16:18 17:42 06:00 Sodium 124 L 129 L Potassium 4.4 4.1 Chloride 93 L 97 L Carbon Dioxide 24 20 L BUN 29 H 25 H Creatinine 1.64 H 1.18 Estimated GFR 41.9 L > 60.0 BUN/Creatinine Ratio 17.7 21.2 Glucose 92 124 H Lactate Calcium 9.5 10.1 Magnesium 1.7 Total Creatine Kinase CK-MB (CK-2) CK-MB (CK-2) Rel Index Troponin I NT-Pro-B Natriuret Pep Lipase SARS-CoV-2 (PCR) Negative [facility] Medical History Bladder cancer Chicken pox (~1957) Chronic back pain CIS (carcinoma in situ of bladder) Controlled type 2 diabetes mellitus without complication Coronary artery disease Depression Easy bruisability Hearing loss History of primary bladder cancer HTN (hypertension) Measles (~1958) Mixed hyperlipidemia Myocardial infarction Peripheral neuropathy Pneumonia Sleep apnea with use of continuous positive airway pressure (CPAP) Thin skin Tinnitus Wears glasses Surgical History Anesthesia H/O cystoscopy History of surgery (04/04/19) Hx of arthroscopy of right knee Hx of heart artery stent Hx of shoulder surgery (~2013) Hx of tonsillectomy 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) Family History Sister Breast cancer Father History of heart disease COPD (chronic obstructive pulmonary disease) Mother Stroke Brother History of heart disease Social History household members: spouse and family Smoking Status: Never smoker alcohol intake: never substance use type: does not use Assessment & Plan Assessment & Plan narrative: 1. Hyponatremia-numbers improved at 129. Continue with IV saline for now. There has not been a dramatic change in patient's overall clinical status with this however. 2. Hypomagnesemia-improved. Back to normal. Will start oral magnesium as well. 3. GI-continue to offer foods and monitor intake. 4. Diabetes-blood sugars anyway have been stable. Again question whether patient truly has diabetes or impaired glucose tolerance. Continue monitor here in the hospital 5. Activity-will get physical therapy to see patient that may well improve his overall mental status and increased appetite 6. Question reaction to Keytruda-continue with IV steroids for now. This could also be contributing to his overall confusion per history but that predates the she should steroid therapy so seems less likely to me. 7. Altered mental status-no clear etiology at this point. No evidence of active infection he is afebrile white count was normal upon admission etcetera. As we rehydrate maybe worth repeating chest x-ray. Pneumonia could explain part of this anyway. 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 Will follow clinically for now Note: Greater than 30 minutes was spent evaluating the patient on the floor, including examining the patient, discussing clinical course with clinical and nursing staff, reviewing clinical course in the computer, preparing documentation and writing orders for continued management of care, discussing status with family as appropriate, reviewing plans for the next 24 hours with both patient/family and nursing staff as appropriate.
[2020-09-11] MEDS: ENOXAPARIN 30 MG/0.3 ML SYRINGE SUBCUT (08:23)
[2020-09-11 08:24] LABS: Bacteria Urine None Seen; RBC Urine None Seen (0-5/HPF); WBC Urine None Seen (0-5/HPF)
[2020-09-11] MEDS: ASPIRIN EC 81 MG TABLET PO (08:24)
[2020-09-11] MEDS: buPROPion SR 150 MG TAB PO ×2 (08:25→21:14)
[2020-09-11] MEDS: OXYCODONE IR 5 MG TABLET PO (08:27)
[2020-09-11 08:39] LABS: Appearance Urine UA CLEAR; Bilirubin Urine UA NEGATIVE (NEGATIVE); Color Urine UA YELLOW; Glucose Urine UA NEGATIVE (Negative); Ketones Urine UA 2+ (NEGATIVE); Leukocyte Esterase Urine UA NEGATIVE (NEGATIVE); Nitrite Urine UA NEGATIVE (Negative); Occult Blood Urine UA NEGATIVE (Negative); Protein Urine UA NEGATIVE (Negative); Urobilinogen Urine UA 0.2 E.U./dL (0.2)
[2020-09-11 08:46] LABS: Culture Indicated Urine Cult Not Indicated; Squamous Epithelial Cell Urine None Seen (0-5/HPF)
[2020-09-11 09:23] VITALS: O2SAT 98
[2020-09-11] MEDS: DULOXETINE 30 MG CAPSULE 60 MG PO (11:38)
[2020-09-11] MEDS: MAGNESIUM OXIDE 400 MG TABLET PO ×2 (11:38→21:14)
[2020-09-11] MEDS: INSULIN LISPRO 100 UNIT/ML 3ML VIAL SUBCUT (12:19)
--- NOTE | 2020-09-11 14:35 | PT.IIE ---
Current Diagnoses Hypo-osmolality and hyponatremia (09/10/20) Surgical History (Last Reviewed 05/10/20 @ 16:30 by Eleni Cortes MD) Anesthesia Medical History (Last Reviewed 05/10/20 @ 16:30 by Eleni Cortes MD) Bladder cancer Chicken pox (~1957) Chronic back pain CIS (carcinoma in situ of bladder) Controlled type 2 diabetes mellitus without complication Coronary artery disease Depression Easy bruisability Hearing loss History of primary bladder cancer HTN (hypertension) Measles (~1958) Mixed hyperlipidemia Myocardial infarction Peripheral neuropathy Pneumonia Sleep apnea with use of continuous positive airway pressure (CPAP) Thin skin Tinnitus Wears glasses Physical Therapy Inpatient Evaluation/Re-Eval M1 PT/OT-IP Prior Functional Status Start: 09/11/20 16:28 Freq: NEEDED Status: Active Protocol: Document 09/11/20 14:35 AB (Rec: 09/11/20 16:45 AB [id number]) Medical Review Prior Functional Status Medical History Reviewed Yes Communication able to answer some questions but accuracy inconsistent with information given; [facility] Mobility and Gait spouse in room also provided info as pt's responses to questions are inaccurate spouse stated that pt is independent with all mobilities and ambulation without AD indoors and uses a SPC for outdoor mobility; daughter stated that pt an only stand or ambulate ~ 60 max and has to sit down prior to hospitalization Social History Household Members spouse,family Living Arrangements House Number of Floors (Floors) One Floor Number of Stairs To Enter/Railing? 3 steps L rail + R side wall support Home Environment Standard Height Toilet,Tub/ Shower Home Equipment Four Wheel Walker,Straight Cane,Shower Seat without Backrest,Hand Held Shower Employment Status Retired M2 PT-IP Current Condition Start: 09/11/20 16:28 Freq: NEEDED Status: Active Protocol: Document 09/11/20 14:35 AB (Rec: 09/11/20 16:45 AB [id number]) Physical Therapy Current Condition Current Condition Evaluation Date 09/11/20 Treatment Diagnosis hyponatremia; hypotension; bladder CA; difficulty in walking Onset Date 09/10/20 Precautions Other Precautions falls M3 PT-IP Subjective Start: 09/11/20 16:28 Freq: NEEDED Status: Active Protocol: Document 09/11/20 14:35 AB (Rec: 09/11/20 16:45 AB [id number]) Subjective Physical Therapy Visit Type Type Initial Evaluation Visit Start Time 14:35 Visit Stop Time 15:25 Total Visit Minutes 50 Number of BDC MANAGER Visits 0 Physical Therapy Visit Comments Patient Comments agreeable to do PT Therapy Pain Assessment Pain Present Pain Present Denied Pain M4 PT-IP Mobility and Gait Start: 09/11/20 16:28 Freq: NEEDED Status: Active Protocol: Document 09/11/20 14:35 AB (Rec: 09/11/20 16:45 AB [id number]) PT-Bed Mobility Assessment Supine to Sit Supine to Sit Standby Assistance PT-Transfer Assessment Sit to and From Stand Sit to and from Stand Minimal Assistance,1 Person Assistance,Use of Upper Extremities Equipment Transfer Assistive Device Gait Belt,Front Wheeled Walker Orthotic/Prosthetic Devices or Brace: No Transfers Transfer Destination Chair Transfer Technique Stand Step Pivot Transfer Ability Level of Assist Minimal Assistance,1 Person Assistance,Use of Upper Extremities Comments Mobility Comments BP: 123/74 in supine. pt completed supine to sit SBA. pt was able to sit on EOB SBA without c/o lightheadedness, dizziness. completed sit to stand min A and cues and completed step transfer to chair using FWW min A and cues . pt agreed to do ambulation and completed ~ 20 ft using FWW min A and cues. presents with unsteady gait with narrow [place]. pt agreed to stay up on chair and sat on chair. positioned. call light and table placed within reach. NAC provided pt with chair alarm. Gait Assessment Gait Gait Assistance Required: Minimum Assistance,1 Person Assist Distance (Feet) 20 Able to Maintain Weight Bearing Status Yes During Gait Assistive Devices Assistive Device Gait Belt,Front Wheeled Walker Orthotic/Prosthetic Devices or Brace: No Gait Deviations General Gait Pattern Ataxic,Decreased Stride Length ,Decreased Feet Clearance, Narrow Based Gait,Step-to Gait Factors Limiting Gait Function Factors Limiting Gait Function Decreased Activity Tolerance, Decreased Strength,Difficulty Following Directions,Limited Range of Motion,Pain,Poor Balance,Poor Safety Awareness PT-Balance Assessment Sitting Balance and Reactions Static Sitting Balance Ability Good Dynamic Sitting Balance Ability Good Standing Balance and Reactions Static Standing Balance Ability Fair Dynamic Standing Balance Ability Fair Device Used FWW M5 PT-IP Objective Assessments Start: 09/11/20 16:28 Freq: NEEDED Status: Active Protocol: Document 09/11/20 14:35 AB (Rec: 09/11/20 16:45 AB [id number]) Orientation Orientation/Cognition Level of Alertness Confusional State Orientation Name,Place Language Function Ability Hard of Hearing Memory Description Short Term Impaired,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 Gross Range of Motion Lower Extremity ROM Assessment Within Functional Limits Strength Lower Extremity Strength Assessment Within Functional Limits Muscle Tone Muscle Tone WNL Yes M6 PT-IP Treatment Start: 09/11/20 16:28 Freq: NEEDED Status: Active Protocol: Document 09/11/20 14:35 AB (Rec: 09/11/20 16:45 AB [id number]) Physical Therapy Treatment Education Education Provided Safety M7 PT-IP Assessment and Plan Start: 09/11/20 16:28 Freq: NEEDED Status: Active Protocol: Document 09/11/20 14:35 AB (Rec: 09/11/20 16:45 AB [id number]) PT Summary Assessment and Plan Potential Rehabilitation Potential Good Status of Condition at Evaluation Evolving Summary Impairments Strength,Balance,Coordination, Cognition,Bed Mobility, Transfers,Gait,Activity Tolerance Assessment Summary pt requiring min A with ambulation using FWW. pt has confusion affecting safety awareness and mobility level. will conduct caregiver training with spouse when appropriate as well as stair climbing training. will continue PT for overall strengthening and improving mobility independence for safe d/c home. at this time, pt will need 24/7 assist available and HHPT. will continue to assess progress. Goals Bed Mobility Goal Independent Transfer Goal Independent,Front Wheeled Walker Gait Goal Independent,Front Wheel Walker Gait Distance 100 Other Goals improve ambulation using 4WW/ SPC SBA 150 ft up/down 3 steps L rail + R wall support SBA Days to Meet Goals 10 Frequency of Treatment Frequency Of Treatment Once a Day Treatment Plan Physical Therapy Treatment Plan Bed Mobility Training,Transfer Training,Gait Training, Therapeutic Exercise,Balance Retraining,Post Op Education, Discharge Planning,Hot or Cold Pack,Neuromuscular Re-ed, Coordination Retraining,Manual Therapy Precautions Other Precautions falls Recommendations To Nursing Amount of Assist Needed 1 Person Assist Discharge Recommendations PT Discharge Recommendations Home with 24/7 Assist Available,Home Health Equipment Needed for Home Before FWW: if not safe with 4WW/SPC Discharge Transportation Needs at Discharge Private Vehicle,Wheelchair/ Cabulance
[2020-09-11 15:57] VITALS: BP 113/63; PULSE 106; RESP 16; TEMP 36.3; O2SAT 96
[2020-09-11] MEDS: SODIUM CHLORIDE 0.9% FLUSH 10 ML IV (21:14)
[2020-09-11] MEDS: ZOLPIDEM 5 MG TABLET 10 MG PO (21:14)
[2020-09-11] MEDS: ATORVASTATIN 20 MG TABLET 40 MG PO (21:14)
[2020-09-12 00:15] VITALS: BP 105/52; PULSE 75; RESP 18; TEMP 36.4; O2SAT 96
[2020-09-12 00:30] VITALS: O2SAT 96
[2020-09-12] MEDS: SODIUM CHLORIDE 0.9% 1,000 ML 125 ML IV (05:37)
[2020-09-12 06:13] LABS: Add Manual Diff / Slide Review NO; Basophils Absolute Auto 0 /uL (0-100); Basophils Percent Auto 0.2 % (0-2); Eosinophils Absolute Auto 0 /uL (0-450); Eosinophils Percent Auto 0.1 % (2-4); Hematocrit 27.5 % (41-53); Hemoglobin 9.5 g/dL (13.5-17.5); Lymphocytes Absolute Auto 700 /uL (1100-4500); Lymphocytes Percent Auto 7.5 % (25-40); Mean Corpuscular HGB Conc 34.4 % (30-36); Mean Corpuscular Hemoglobin 33.8 PG (26-34); Mean Corpuscular Volume 98.2 fL (80-100); Monocytes Absolute Auto 200 /uL (0-900); Monocytes Percent Auto 2.1 % (3-14); Neutrophils Absolute Auto 8900 /uL (1500-7000); Neutrophils Percent Auto 90.1 % (50-75); Platelet Count 155 X10^3/uL (150-400); Red Cell Distribution Width 12.9 % (11.6-14.8); White Blood Cell Count 9.8 X10^3/uL (4.5-11.0)
[2020-09-12 06:19] LABS: BUN Creatinine Ratio 27.4 (6-22); Blood Urea Nitrogen 26 mg/dL (9-20); Carbon Dioxide 20 mmol/L (22-32); Chloride 103 mmol/L (98-107); Estimated Glomerular Filt Rate > 60.0 mL/min (>60); Glucose 130 mg/dL (80-110); HEMOLYSIS < 15 (0-50); Magnesium 1.7 mg/dL (1.6-2.3); Sodium 130 mmol/L (137-145)
[2020-09-12 08:00] VITALS: BP 108/56; PULSE 73; RESP 14; TEMP 36.2; O2SAT 94; O2SAT 98
--- NOTE | 2020-09-12 08:18 | DI.RAD.S_ITS ---
PROCEDURE: XR CHEST 2V INDICATIONS: pneumonia TECHNIQUE: 2 views of the chest were acquired. COMPARISON: [facility], CR, XR CHEST 1V, 09/04/2020, 14:04. FINDINGS: Surgical changes and devices: Left chest wall Port-A-Cath is stable. Lungs and pleura: Interstitial prominence and mild cephalization of pulmonary vasculature concerning for CHF. Patchy opacities noted in the right middle lobe which could represent atelectasis, aspiration or pneumonia. No pleural effusions or pneumothorax. Mediastinum: Mediastinal contours are normal. Heart size is normal. Bones and chest wall: No suspicious bony abnormalities. Soft tissues appear unremarkable. IMPRESSION: 1. Interstitial prominence and cephalization of pulmonary vasculature concerning for CHF. 2. Right middle lobe atelectasis, aspiration or pneumonia. Dictated by: Tori Lewis MD, PhD on 09/12/2020 at 9:11 Approved by: Tori Lewis MD, PhD on 09/12/2020 at 9:12
--- NOTE | 2020-09-12 08:19 | P.PN_ITS ---
Subjective Subjective Date Patient Seen: 09/12/20 Time Patient Seen: 08:19 Interval history: Patient seems improved. Still has some disordered thinking but by my evaluation and family's evaluation is much closer to baseline. Does not have the paranoia or aggressive kind of stands the did upon admission Has had some urinary incontinence. Denies any respiratory symptoms at all. Exam Vital Signs (past 8 hours): - 09/12/20 00:30 Pulse Oximetry 96 Oxygen Delivery Method Room Air Oxygen Flow Rate 0 Objective Labs Result Diagrams: 09/12/20 05:40 09/12/20 05:40 Labs: Laboratory Results - last 24 hr 09/11/20 09/12/20 09/12/20 08:00 05:40 05:40 WBC 9.8 RBC 2.80 L Hgb 9.5 L Hct 27.5 L MCV 98.2 MCH 33.8 MCHC 34.4 RDW 12.9 Plt Count 155 Neut % (Auto) 90.1 H D Lymph % (Auto) 7.5 L [place] % (Auto) 2.1 L Eos % (Auto) 0.1 L Baso % (Auto) 0.2 Neut # (Auto) 8900 H Lymph # (Auto) 700 L [place] # (Auto) 200 Eos # (Auto) 0 Baso # (Auto) 0 Sodium 130 L Potassium 5.0 Chloride 103 Carbon Dioxide 20 L BUN 26 H Creatinine 0.95 Estimated GFR > 60.0 BUN/Creatinine Ratio 27.4 H Glucose 130 H Calcium 9.0 Magnesium 1.7 Urine Color Yellow Urine Appearance Clear Urine pH 5.0 Ur Specific [place] 1.010 Urine Protein Negative Urine Glucose (UA) Negative Urine Ketones 2+ H Urine Occult Blood Negative Urine Nitrate Negative Urine Bilirubin Negative Urine Urobilinogen 0.2 Ur Leukocyte Esterase Negative Urine RBC None seen Urine WBC None seen Ur Squamous Epith Cells None seen Urine Bacteria None seen Ur Culture Indicated? Cult not indicated [facility] Medical History Bladder cancer Chicken pox (~1957) Chronic back pain CIS (carcinoma in situ of bladder) Controlled type 2 diabetes mellitus without complication Coronary artery disease Depression Easy bruisability Hearing loss History of primary bladder cancer HTN (hypertension) Measles (~1958) Mixed hyperlipidemia Myocardial infarction Peripheral neuropathy Pneumonia Sleep apnea with use of continuous positive airway pressure (CPAP) Thin skin Tinnitus Wears glasses Surgical History Anesthesia H/O cystoscopy History of surgery (04/04/19) Hx of arthroscopy of right knee Hx of heart artery stent Hx of shoulder surgery (~2013) Hx of tonsillectomy 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) Family History Sister Breast cancer Father History of heart disease COPD (chronic obstructive pulmonary disease) Mother Stroke Brother History of heart disease Social History household members: spouse and family Smoking Status: Never smoker alcohol intake: never substance use type: does not use Assessment & Plan Assessment & Plan narrative: 1. Electrolytes/renal-patient's numbers are much improved. Although not outstanding urine output suggesting need for continued IV fluids 2. Nutrition-patient eating a bit better. No nausea or other GI symptoms 3. Altered mental status-patient will have repeat chest x-ray and urinalysis given his incontinence looking for evidence of infection there. Initial urinalysis unremarkable but patient was quite dehydrated. If not finding an answer may well need CADMI[employer]QU[employer] MAKER imaging with MRI 4. Hyperglycemia-patient's numbers have been okay. Minimally hyperglycemic. 5. Question allergic reaction to Keytruda-patient seems to be having more side effects and issues with the IV steroids than benefit. I am going to discontinue steroids now. I am not convinced there is an actual reaction to the Keytruda at this point. Overall patient is much improved but still has an altered mental status. Family is not comfortable taking him home and I think he still needs some IV fluid/volume resuscitation as well as above interventions and evaluations Note: Greater than 30 minutes was spent evaluating the patient on the floor, including examining the patient, discussing clinical course with clinical and nursing staff, reviewing clinical course in the computer, preparing documentation and writing orders for continued management of care, discussing status with family as appropriate, reviewing plans for the next 24 hours with both patient/family and nursing staff as appropriate.
[2020-09-12 09:24] LABS: Bacteria Urine None Seen
[2020-09-12 09:54] LABS: Appearance Urine UA CLEAR; Bilirubin Urine UA NEGATIVE (NEGATIVE); Color Urine UA YELLOW; Glucose Urine UA NEGATIVE (Negative); Ketones Urine UA 2+ (NEGATIVE); Leukocyte Esterase Urine UA NEGATIVE (NEGATIVE); Nitrite Urine UA NEGATIVE (Negative); Occult Blood Urine UA NEGATIVE (Negative); Protein Urine UA NEGATIVE (Negative); Specific Gravity Urine UA 1.015 (1.000-1.035); Urobilinogen Urine UA 0.2 E.U./dL (0.2)
[2020-09-12 10:37] LABS: Culture Indicated Urine Cult Not Indicated; Hyaline Casts Urine 1-5/LPF; RBC Urine 0-1/HPF (0-5/HPF); Squamous Epithelial Cell Urine 0-1 /HPF (0-5/HPF); WBC Urine 0-1/HPF (0-5/HPF)
--- NOTE | 2020-09-12 10:53 | PC.NURSE ---
Addendum entered by Fany Paredes R.N. 09/12/20 18:50: PT CONTINUES TO IMPROVE RE: SPEECH, FRAGMENTED THOUGHT PROCESS- SPEECH IS CLEAR AND MEANINGFUL- APPETITE IS SLOWLY IMPROVING, DENIES NAUSEA- EARLIER IN SHIFT ASA AND LOVENOX HELD DUE TO BLOODY STOOL BUT NO FURTHER EVIDENCE OF BLEEDING NOTED REPORTS HE DOES SUFFER FROM HEMORRHOIDS OCCASSIONALLY Original Note: pt reports no pain and is more verbal and making more sense ( per daughter Johanna ) able to make needs known continues to have decreased appetite and took approx 25% of am meal denies nausea and able to void for urine spec sent, also cxr x 2 taken - family at bedside
[2020-09-12] MEDS: MAGNESIUM OXIDE 400 MG TABLET PO ×2 (11:00→21:39)
[2020-09-12] MEDS: buPROPion SR 150 MG TAB PO ×2 (11:00→21:38)
--- NOTE | 2020-09-12 11:03 | PT.IPTN ---
Current Diagnoses Hypo-osmolality and hyponatremia (09/10/20) Physical Therapy Treatment Note M2 PT-IP Current Condition Start: 09/11/20 16:28 Freq: NEEDED Status: Active Protocol: Document 09/11/20 14:35 AB (Rec: 09/11/20 16:45 AB [id number]) Physical Therapy Current Condition Current Condition Evaluation Date 09/11/20 Treatment Diagnosis hyponatremia; hypotension; bladder CA; difficulty in walking Onset Date 09/10/20 Precautions Other Precautions falls M3 PT-IP Subjective Start: 09/11/20 16:28 Freq: NEEDED Status: Active Protocol: Document 09/12/20 11:17 SP (Rec: 09/12/20 13:11 SP [id number]) Subjective Physical Therapy Visit Type Type Treatment Note Visit Start Time 11:17 Visit Stop Time 11:55 Total Visit Minutes 38 Notes and daughter attend, completed caregiver training. Vitals taken during tx: seated: BP 127/64 HR 97 bpm, SaO2 98% onRA. post mobility: BP 122/ 70 HR 102 SaO2 93% on RA. Number of WELFARE MANAGER Visits 1 Physical Therapy Visit Comments Patient Comments Pt agreeable working with therapy . Patient Goals return home with family to assist him. Therapy Pain Assessment Pain Present Pain Present Denied Pain M4 PT-IP Mobility and Gait Start: 09/11/20 16:28 Freq: NEEDED Status: Active Protocol: Document 09/12/20 11:17 SP (Rec: 09/12/20 13:11 SP [id number]) PT-Transfer Assessment Sit to and From Stand Sit to and from Stand Standby Assistance,Contact Guard Assistance,1 Person Assistance,Use of Upper Extremities Equipment Transfer Assistive Device Gait Belt,4 Wheeled Walker Orthotic/Prosthetic Devices or Brace: No Transfers Transfer Destination Chair Transfer Technique pt ambulated using 4WW Transfer Ability Level of Assist Standby Assistance,Contact Guard Assistance,1 Person Assistance,Use of Upper Extremities Comments Mobility Comments Sit>stand with occasional cues for 4WW brake mgt pre stand or sit for safety. Pt ambulated further distance room to stairs w/ w/c follow via daughter and WELFARE MANAGER managed IV pole while provided CGA- SBA, ascended stairs CGA L HR and downward presure on R HR as does at home plantar boxes on R to use if needed, returned to room using 4WW CGA provided by , step over step with occasional cues for centering self in hallway and safety away from obstacles in hallway, good slow controlled pacing, no signs or reports of SOB w/ mask donned. Pt return to chair in room. Pt had chair alarm donned, call light and all needs in reach with family in room. Pt is little confused at times to in conversation to task at hand. Pt would benefit from HHPT and family requested HHPT to acclimate home environment. Pt is ok to return home when medically stable/cleared with 08/09 support of his family. Gait Assessment Gait Gait Assistance Required: Standby Assistance,Contact Guard Assist,1 Person Assist Distance (Feet) 600 Able to Maintain Weight Bearing Status Yes During Gait Assistive Devices Assistive Device Gait Belt,4 Wheeled Walker Orthotic/Prosthetic Devices or Brace: No Gait Deviations General Gait Pattern Antalgic Factors Limiting Gait Function Factors Limiting Gait Function Difficulty Following Directions,Poor Safety Awareness Comments Gait Comments See mobility comments. Stair Climbing Assessment Evaluation Level of Assist On Stairs Contact Guard Assistance,1 Person Assistance Devices Stair Climbing Assistive Devices Left Railing,Right Railing Technique/Endurance Stair Climbing Direction Ascend and Descend Stair Climbing Technique Step Over Step Number of Steps Climbed 3 Stair Climbing Set # Repetitions (reps) 1 Comments Stair Climbing Comments 3 stairs, L HR grasp, R HR downward pressure assimulate RUE on plantar boxes has to use at home on R, CGA via assist, step over step patterning, good balance and slow pacing control. 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 Gross Range of Motion Lower Extremity ROM Assessment Within Functional Limits Strength Lower Extremity Strength Assessment Within Functional Limits Muscle Tone Muscle Tone WNL Yes M6 PT-IP Treatment Start: 09/11/20 16:28 Freq: NEEDED Status: Active Protocol: Document 09/12/20 11:17 SP (Rec: 09/12/20 13:11 SP [id number]) Physical Therapy Treatment Education Education Provided Safety M7 PT-IP Assessment and Plan Start: 09/11/20 16:28 Freq: NEEDED Status: Active Protocol: Document 09/12/20 11:17 SP (Rec: 09/12/20 13:11 SP [id number]) PT Summary Assessment and Plan Potential Rehabilitation Potential Good Status of Condition at Evaluation Evolving Summary Impairments Strength,Balance,Coordination, Cognition,Bed Mobility, Transfers,Gait,Activity Tolerance Progress Towards Goals Progressing Toward Goals Assessment Summary pt requiring CGA with ambulation using 4WW. pt has confusion affecting safety awareness and mobility level. Completed caregiver training with spouse including distance gait using 4wW and stair climbing training. Recommending continued HHPT for overall strengthening and improving mobility independence for safety acclimation at home. At this time, pt will need 24/7 assist available and HHPT. Will continue to assess progress but pt is ok to return home with family to assist him when medically cleared. Goals Bed Mobility Goal Independent Transfer Goal Independent,Front Wheeled Walker Gait Goal Independent,Front Wheel Walker Gait Distance 100 Other Goals improve ambulation using 4WW/ SPC SBA 150 ft up/down 3 steps L rail + R wall support SBA Days to Meet Goals 10 Frequency of Treatment Frequency Of Treatment Once a Day Treatment Plan Physical Therapy Treatment Plan Bed Mobility Training,Transfer Training,Gait Training, Therapeutic Exercise,Balance Retraining,Post Op Education, Discharge Planning,Hot or Cold Pack,Neuromuscular Re-ed, Coordination Retraining,Manual Therapy Other Recommendations and Next Treatment gait LRAD can assess SPC, Focus standing balance. Precautions Other Precautions falls Recommendations To Nursing Amount of Assist Needed Standby Assistance,1 Person Assist Discharge Recommendations PT Discharge Recommendations Home with 24/7 Assist Available,Home Health Equipment Needed for Home Before safe w/ 4WW, has access to FWW Discharge if needs in future from [employer] per . Transportation Needs at Discharge Private Vehicle,Wheelchair/ Cabulance
--- NOTE | 2020-09-12 11:08 | OT.IP.EVAL ---
Current Diagnoses Hypo-osmolality and hyponatremia (09/10/20) Past Medical History (Last Reviewed 05/10/20 @ 16:30 by Eleni Cortes MD) Bladder cancer Chicken pox (~1957) Chronic back pain CIS (carcinoma in situ of bladder) Controlled type 2 diabetes mellitus without complication Coronary artery disease Depression Easy bruisability H/O cystoscopy Hearing loss History of primary bladder cancer History of surgery (04/04/19) HTN (hypertension) Hx of arthroscopy of right knee Hx of heart artery stent Hx of shoulder surgery (~2013) Hx of tonsillectomy Measles (~1958) Mixed hyperlipidemia Myocardial infarction Peripheral neuropathy Pneumonia 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) Sleep apnea with use of continuous positive airway pressure (CPAP) Thin skin Tinnitus Wears glasses Surgical History (Last Reviewed 05/10/20 @ 16:30 by Eleni Cortes MD) Anesthesia H/O cystoscopy History of surgery (04/04/19) Hx of arthroscopy of right knee Hx of heart artery stent Hx of shoulder surgery (~2013) Hx of tonsillectomy 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) Occupational Therapy Inpatient Evaluation/Re-Eval M1 PT/OT-IP Prior Functional Status Start: 09/11/20 16:28 Freq: NEEDED Status: Active Protocol: Document 09/12/20 11:14 [facility] (Rec: 09/12/20 11:33 [facility] [id number]) Medical Review Prior Functional Status Medical History Reviewed Yes Communication able to answer some questions but accuracy inconsistent with information given; [facility] Mobility and Gait Pt's daughter in room also provided info as pt's responses to questions are inaccurate daughter stated that pt is independent with all mobilities and ambulation without AD indoors and uses a SPC for outdoor mobility Activities of Daily Living and IADL's Prior to getting weak and confused was completely independent with all ADl needs . Social History Household Members spouse,family Living Arrangements House Number of Floors (Floors) One Floor Number of Stairs To Enter/Railing? 3 steps L rail + R side wall support Home Environment Standard Height Toilet,Tub/ Shower Home Equipment Four Wheel Walker,Straight Cane,Shower Seat without Backrest,Hand Held Shower Employment Status Retired Additional Social History Comment Pt's youngest daughter in town to assist pt. M2 OT-IP Current Condition Start: 09/12/20 11:13 Freq: Status: Active Protocol: Document 09/12/20 11:14 [facility] (Rec: 09/12/20 11:33 [facility] [id number]) Occupational Therapy Current Condition Current Condition Evaluation Date 09/12/20 Treatment Diagnosis Hypoatremia, Hypotension, Altered mental status Diagnosis Onset Date 09/10/20 M3 OT- IP Subjective and Pain Start: 09/12/20 11:13 Freq: Status: Active Protocol: Document 09/12/20 11:14 [facility] (Rec: 09/12/20 11:33 [facility] [id number]) OT- Subjective Occupational Therapy Visit Type Type Initial Evaluation Visit Start Time 10:00 Visit Stop Time 11:08 Total Visit Minutes 68 Occupational Therapy Visit Comments Patient Comments Pt agreed to take a shower. Pt 's daughter present for OT eval. Patient/Caregiver Goals Pt insistent on going home today. OT Pain Assessment Pain When Pain Assessed At Rest Pain Present Pain Present Denied Pain M4 OT- IP ADL's Start: 09/12/20 11:13 Freq: Status: Active Protocol: Document 09/12/20 11:14 [facility] (Rec: 09/12/20 11:33 [facility] [id number]) OT NES-Fxxy-Kawykgx Comments OT Self-Feeding Comments Not at meal time. OT ADL-Grooming Comments OT Grooming Comments Not performed. OT ADL-Dressing General Eval Lower Body Dressing Ability Minimal Assistance Comments OT Dressing Comments Assist to help get his right foot into the brief. CGA for balance while pt pulling up brief over his hips. OT ADL-Toileting General Evaluation Toileting Ability Standby Assistance Comments OT Toileting Comments SBA for safety. Noted blood in toilet after pt having a bowel movement and nursing notified and came to look. OT ADL-Bathing Bathing Type Bathing Type Shower General Evaluation Bathing Ability Minimal Assistance Areas Needing Assistance Wash/Dry Back,Wash/Dry Lower Extremities Devices Bathing Equipment Shower Chair with Arms Comments OT Bathing Comments Pt stood for most of the shower and cued to sit for washing his legs. Pt needing occasional CGA for balance while standing but heavy use of the grab bar for balance. M5 OT- IP IADL's Start: 09/12/20 11:13 Freq: Status: Active Protocol: Document 09/12/20 11:14 [facility] (Rec: 09/12/20 11:33 [facility] [id number]) OT-Instrumental Activities of Daily Living Home Safety Awareness Awareness of Need for Assistance at Home Decreased Awareness Ability to Problem Solve Emergency Unable to Problem Solve Situations Medication Management Medication Management Comments Strongly suggested that someone assist pt for medications needs as pt is confused and has decreased STM . Money Management Money Management Caregiver Provides Assistance Meal Preparation Meal Preparation Caregiver Provides Assist Manager Heart Manager Heart Caregiver Provides Assist Driving Driving Caregiver Provides Assist M6 OT- IP Functional Cognition Start: 09/12/20 11:13 Freq: Status: Active Protocol: Document 09/12/20 11:14 [facility] (Rec: 09/12/20 11:33 [facility] [id number]) Cognitive Factors Limiting Selfcare Function Cognitive Ability Level of Alertness Alert,Confusional State Patient Orientation Name,Year,Day of Week,Place, Situation Attention Span Ability Capable of Focused Attention, Capable of Sustained Attention ,Unable to Sustain Attention Ability to Follow Commands Able to Follow One Step Commands with Increased Time, Able to Follow One Step Commands with Repetition Memory Description Short Term Impaired,Working Impaired Safety Awareness Underestimates Need for Assistance Problem Solving Ability Unable to Identify Errors, Needs Assist to Identify Solutions Executive Function Ability Unable to Switch Focus,Unable to Filter Distractions,Unable to Remember Details Cognitive Tests SLUMS Initiated SLUMS and unable to complete as pt not able to recall directions and information given. Pt also is highly distractible and is very tangential and not able to stay on topic. Cognitive Comments Cognitive Assessment Comments Due to pt's decreased safety awareness, has impulsivity and at times having a hard time to comprehend what was said ( pt has hearing aid), best for pt to have 24/7 asisst at home. Pt needing cues to help sequence through task of showering. Pt also forgetting events that just occurred and tends to joke around to cover for his cognitive deficits. Pt low sodium level may be affecting his cognitive skills at this time, to continue to assess pt for safety and cognition during ADl and functional mobility needs. OT- Vision and Hearing OT- Hearing Assessment OT- Hearing Assessment Use of Hearing Aids OT- Vision Assessment Visual Acuity Glasses All The Time Visual Attentiveness WFL Occular Pursuits WFL Vision Assessment Comments At rest pt's eye no not line up. Pt's daughter states pt's was born that way but has been able to see well with no deicits. M7 OT- IP Mobility and Balance Start: 09/12/20 11:13 Freq: Status: Active Protocol: Document 09/12/20 11:14 [facility] (Rec: 09/12/20 11:33 [facility] [id number]) OT-Transfer Assessment Sit to and From Stand Sit to and from Stand Contact Guard Assistance Transfers Transfer Ability Standby Assistance,Contact Guard Assistance Technique Transfer Destination Chair,Shower Stall,Toilet Transfer Technique Stand Step Pivot Devices Transfer Assistive Devices None,Gait Belt Comments Mobility Comments CGA to step over threshold of the shower. close SBA to CGA without use of device in the room. OT- Balance Assessment Sitting Balance and Reactions Static Sitting Balance Ability Normal Dynamic Sitting Balance Ability Good Standing Balance and Reactions Static Standing Balance Ability Fair M8 OT- IP Objective Assessments Start: 09/12/20 11:13 Freq: Status: Active Protocol: Document 09/12/20 11:14 [facility] (Rec: 09/12/20 11:33 [facility] [id number]) OT Gross Range of Motion Upper Extremity Range of Motion Assessment Within Functional Limits OT-Muscle Tone Assessment Muscle Tone WNL Yes M9 OT- IP Assessment and Plan Start: 09/12/20 11:13 Freq: Status: Active Protocol: Document 09/12/20 11:14 [facility] (Rec: 09/12/20 11:33 [facility] [id number]) OT Summary Assessment and Plan Potential Rehabilitation Potential Good Analytic Complexity at Evaluation Moderate Summary OT Impairments Strength,Balance,Functional Cognition,Functional Mobility, Grooming,Dressing,Toileting, Bathing,Toilet Transfers, Shower Transfers,Activity Tolerance Progress Towards Goals Slow Progress due to Medical Issues,Slow Progress due to Cognition Assessment Summary Pt MOD complexity and here due to Hypoatremia and altered mental status. Pt likes to joke around to cover for his cognitive deficits, pt has trouble to get his thoughts across, decreased memory and safety awareness. Pt would benefit from / assist if going home and home health. Pt's daughter has requested information of support group for pt, case management notified and also of recommendation for home health. Goals Grooming Goal Independent Dressing Goal Independent Toileting Goal Independent Bathing Goal Standby Assistance Toilet Transfer Goal Independent Shower Transfer Goal Independent Patient/Caregiver Education Goal Caregiver Independent Assisting Patient Days to Meet Goals 5 Frequency of Treatment Frequency Of Treatment Once a Day Treatment Plan OT Treatment Plan ADL Training,Functional Cognition Training,Functional Mobility,Patient/Family Education,Discharge Planning Other Treatment Recommendations and Next Reassess cognitive needs for Treatment Focus pt, retry SLUMS Discharge Recommendations OT Discharge Recommendations Home with 24/7 Assist Available,Home Health Home Equipment Needs tub bench Transportation Needs at Discharge Private Vehicle
[2020-09-12] MEDS: SODIUM CHLORIDE 0.9% FLUSH 10 ML IV (11:44)
[2020-09-12] MEDS: DULOXETINE 30 MG CAPSULE 60 MG PO (12:42)
--- NOTE | 2020-09-12 12:54 | DIET.PN ---
Addendum entered by Yasemin Hayes 09/12/20 15:12: Pt disliked ONS Dahval, only took one sip. Pts states she thought it tasted pleasant, like pink lemonade. Pt unable to eat much of his salad at lunch secondary to the ranch dressing having too strong garlic flavor and pt thinking it was blue cheese dressing. Trialing ONS Ensure Max in smoothie with spinach, banana, and 1/4 cup chocolate ice cream. Pt enjoys our turkey sandwiches, having one with hamburger bernarda for dinner. Provided Taste and Smell Change Nutrition handouts to pts to support PO intake at home. Original Note: Dietary Progress Note Assessment: 70y M admitted for altered mental status and abnormal labs (Na 124 L, Mg 1.2 L, hgb 9.5 L) referred to nutrition for severe decrease in appetite. Pt has hx of being a big boy and enjoyed eating as a hobby. He loved meat, potatoes, and big salads from the garden, often eating 18oz steak himself. Pt was not picky eater, eating from all food groups and liked variety of spices. Pt dx c bladder cancer 3y ago and underwent treatment. Since Feb 2020 pt has lost interest in eating with derangements in sense of taste and smell. Food doesn't have a taste, and all smells seem strong and unpleasant. Pts portion sizes decreased to half size at that time with associated 13% unintentional weight loss. Pt is not unhappy with losing weight, however, not under these circumstances. Pts reports pt has turned for the worse since July 2020 when he has no interest in eating meat, has spent most days in bed, stopped his night time snacking (when he ate the most POs). Pt has even lost interest in eating ice cream and fruit. For the past week pt has been drinking water and gatorade along with 5-6 Premier Protein shakes (180kcal and 30g PRO each) as sole nutrition. HT: 170.1cm WT: 91kg UBW: 136kg BMI: 31.4 Labs: admit Na 124 --> 130 L, admit Mg 1.2 --> 1.7, hgb 9.5 L Nutrition Diagnosis: Moderate Malnutrition r/t severe decrease in appetite aeb 4.3% unintentional weight loss in 1mo, 13% unintentional weight loss in 8mo, pt is 33% below his UBW since starting bladder cancer tx 3y ago, pt has had 5 protein drinks over past week as sole nutrition, pt has severe smell aversions limiting food acceptance and low desire to eat. Interventions: 1. Recc PCP discuss potential benefit of appetite stimulant. 2. Educated pt and family on serving foods cold or room temperature and with little to no seasoning to not trigger smell aversion to meals. 4. Recc continued encouragement of small meals and snacks throughout the day/evening. 3. RD and hospital kitchen to trial variety of ONS drinks and smoothies with goal of sharing strategies with family to use at home. ONS Dhaval trialed at lunch today with cold commis chef salad (hb egg, chicken). ONS Ensure Max, banana, spinach smoothie to be trialed this evening with dinner meal. Diet Order: CCD EER: 1,820 kcals (20kcal/kg obese malnourished), 110g PRO (1.2g/kg per malnourished) Monitoring/Evaluations: ONS tolerance, POs
[2020-09-12 16:00] VITALS: O2SAT 95
[2020-09-12 16:06] VITALS: BP 120/74; PULSE 91; RESP 17; TEMP 36.2; O2SAT 99
--- NOTE | 2020-09-12 17:35 | CM.DANOTE ---
DCP/Assessment: Reviewed chart. Patient is a 70yr old male admitted to [facility] with abnormal labs and confusion. Patient with h/o Bladder CA and currently being treated at [facility] by Dr. Mcdaniel. Primary payor is 1)Medicare 2)[facility]. Met with patient and spouse this afternoon explained RIB PULLER role. Patient alert and oriented, sitting in recliner at time of visit. Current recommendation from therapy is home with HH. Both patient and spouse agreeable to HH and first agency choice is [facility]. RIB PULLER left F2F in red folder for MD to sign. Provided both patient and spouse with support in regards to current stress related to CA complications. Also encouraged patient to reach out to [facility] P[facility] for additional resources. P: Home with [facility] if provider agreeable. HH services will need to be set up with [facility]. F2F completed and needs [facility] (red folder). YARI Hackett Discharge Planning/Care Management CM Discharge Assessment Start: 09/12/20 15:19 Freq: Status: Active Protocol: Document 09/12/20 17:31 [facility] (Rec: 09/12/20 17:35 [facility] [id number]) Discharge Planning Assessment Assigned [employer] YARI Hackett Contact Information Michaela Bautista (spouse) ph# Advance Directives? Yes Advance Directives on File No History Provided By Patient,Family Member,Medical Record Prior Living Arrangements House Household Members spouse,family Type of transporation used prior to Drives own vehicle admit Independent with ADL's Yes Is patient alert and oriented? Yes Caregiver for Another No Patient/Family Preference Home with Home Health Barriers to Discharge No Discharge Plan Home with Home Health Transportation Arrangement Family to provide transport. Referrals Initiated Home Health Additional Comment F2F completed and left for MD to sign. If patient plan is home with home health No : Has signed face to face form been completed? Whiteboard Updated in Patient Room with Yes name and ext. # of [employer] Review Status In Process Next Review Type Continued Stay Review
[2020-09-12] MEDS: SODIUM CHLORIDE 0.9% 1,000 ML 100 ML IV (18:03)
[2020-09-12] MEDS: ATORVASTATIN 20 MG TABLET 40 MG PO (21:38)
[2020-09-12] MEDS: ZOLPIDEM 5 MG TABLET 10 MG PO (21:39)
[2020-09-12] MEDS: OXYCODONE IR 5 MG TABLET PO (21:39)
[2020-09-13 00:32] VITALS: BP 114/57; PULSE 78; RESP 17; TEMP 36.4; O2SAT 97
[2020-09-13] MEDS: SODIUM CHLORIDE 0.9% 1,000 ML 100 ML IV (03:45)
[2020-09-13 04:24] VITALS: O2SAT 97
[2020-09-13 05:22] LABS: Add Manual Diff / Slide Review NO; Basophils Absolute Auto 0 /uL (0-100); Basophils Percent Auto 0.2 % (0-2); Eosinophils Absolute Auto 0 /uL (0-450); Eosinophils Percent Auto 0.1 % (2-4); Hematocrit 26.4 % (41-53); Hemoglobin 8.9 g/dL (13.5-17.5); Lymphocytes Absolute Auto 1400 /uL (1100-4500); Lymphocytes Percent Auto 17.9 % (25-40); Mean Corpuscular HGB Conc 33.8 % (30-36); Mean Corpuscular Hemoglobin 33.4 PG (26-34); Monocytes Absolute Auto 600 /uL (0-900); Monocytes Percent Auto 8.1 % (3-14); Neutrophils Absolute Auto 5700 /uL (1500-7000); Neutrophils Percent Auto 73.7 % (50-75); Platelet Count 143 X10^3/uL (150-400); Red Blood Cell Count 2.67 X10^6/uL (4.5-5.9); Red Cell Distribution Width 12.9 % (11.6-14.8); White Blood Cell Count 7.8 X10^3/uL (4.5-11.0)
[2020-09-13 05:32] LABS: BUN Creatinine Ratio 22.9 (6-22); Blood Urea Nitrogen 19 mg/dL (9-20); Calcium 8.8 mg/dL (8.4-10.2); Carbon Dioxide 24 mmol/L (22-32); Chloride 107 mmol/L (98-107); Estimated Glomerular Filt Rate > 60.0 mL/min (>60); Glucose 104 mg/dL (80-110); HEMOLYSIS < 15 (0-50); Magnesium 1.7 mg/dL (1.6-2.3); Sodium 135 mmol/L (137-145)
--- NOTE | 2020-09-13 08:18 | PM.DS.1 ---
History of Present Illness History of Present Illness Date Patient Seen: 09/13/20 Time Patient Seen: 08:19 Chief complaint: ABNORMAL LABS CONFUSION Narrative: 70-year-old male not well known to me, only seen twice in March of this year. Long history of bladder cancer being treated with pembrolizumab, most recent dose on August 16 Patient has had 2+ weeks of very limited oral intake including fluids as well as food. He has become increasingly weak and increasingly disoriented and confused. Patient reports nausea not necessarily associated with eating. Is really had absolutely no appetite family's been unable to get him to eat or drink much of anything. Was seen in the oncology clinic today and referred to the ER for evaluation. Oncology felt like his symptoms most likely related to immune mediated complications of his Keytruda Patient is admitted for correction of his electrolyte and renal abnormalities as well as rehydration etcetera Of note patient was profoundly hypotensive in the ER required fluid resuscitation and seems to have stabilized with that. Discharge Providers Provider Date of admission: 09/10/20 18:03 Discharge Date: 09/13/20 Primary care physician: Jeffrey Hudson MD Consults: 09/10/20 19:14 Consult to Dietitian, Adult Routine Comment: Reason For Exam: severe decrease in appetite 09/11/20 08:15 Consult to Physical Therapy Evaluate & Treat Comment: mobilize/weakness Physician Instructions: Evaluate and Treat 09/12/20 09:24 Consult to Occupational Therapy Evaluate & Treat Comment: Physician Instructions: Evaluate and treat Discharge provider: Jeffrey Hudson MD Summary Hospital Course Discharge Diagnosis: 1. Hyponatremia 2. Hypomagnesemia 3. Acute kidney injury, resolved 4. Dehydration, resolved 5. Nausea and vomiting, resolved 6. Type 2 diabetes 7. Metabolic encephalopathy due to multiple issues as above 8. Carcinoma in-situ of the bladder 9. Peripheral neuropathy secondary to diabetes 10. Port-A-Cath in place Hospital Course: Patient was admitted via the emergency department after presenting with increased altered mental status nausea vomiting and very poor intake. Found to be quite significantly dehydrated with evidence of acute kidney injury and significant electrolyte abnormalities as noted previously. He was treated with aggressive fluid volume replacement and his renal function returned to normal as electrolyte abnormalities returned to normal. His mental status slowly began to return to normal. He was still a bit altered at time of discharge but clearly improving in a global fashion and was felt that he would more likely improve more rapidly in his home setting rather than continued hospitalization given lack of specific focal findings to suggest a active POWERSAW SUPERVISOR event. He was evaluated for evidence of infection but no clear pneumonia UTI or other etiology to cause mental status changes etcetera were identified. His white blood cell count was normal. Patient was found to be minimally anemic once he was rehydrated but this remained stable through the course of his hospitalization Patient's diabetes was not perfectly controlled but adequately controlled. Patient had increased oral intake during his hospitalization in seems like he will continue to do better at home Initially felt the patient possibly having some sort of autoimmune reaction to the Keytruda which is being used to treat his bladder cancer. His initially started on IV methylprednisolone the patient has had a history of significant mental status changes with oral corticosteroids previously and given lack of specific findings to suggest true reaction to Keytruda this was discontinued and no further steroids are given at time of discharge In addition patient had his large dose gabapentin held upon admission. He is not complaining of neuropathic pain in this may be contributing to altered mental status in the outpatient setting and will not be restarted at this time. Maybe restarted at perhaps slightly lower dosing regimen as an outpatient Status at Discharge Functional status at discharge: independent ambulation Overall status at discharge: patient is progressing back to baseline Time Spent with Patient Time spent: Greater than 30 minutes Exam Vital Signs (past 8 hours): - 09/13/20 00:32 09/13/20 04:24 Temperature 97.6 F Pulse Rate 78 Respiratory Rate 17 Blood Pressure 114/57 L Pulse Oximetry 97 97 Oxygen Delivery Method Room Air Oxygen Flow Rate 0 Objective Labs Result Diagrams: 09/13/20 05:10 09/13/20 05:10 Labs: Laboratory Results - last 24 hr 09/12/20 09/13/20 09/13/20 08:07 05:10 05:10 WBC 7.8 RBC 2.67 L Hgb 8.9 L Hct 26.4 L MCV 99.0 MCH 33.4 MCHC 33.8 RDW 12.9 Plt Count 143 L Neut % (Auto) 73.7 Lymph % (Auto) 17.9 L [place] % (Auto) 8.1 Eos % (Auto) 0.1 L Baso % (Auto) 0.2 Neut # (Auto) 5700 Lymph # (Auto) 1400 [place] # (Auto) 600 Eos # (Auto) 0 Baso # (Auto) 0 Sodium 135 L Potassium 4.0 Chloride 107 Carbon Dioxide 24 BUN 19 Creatinine 0.83 Estimated GFR > 60.0 BUN/Creatinine Ratio 22.9 H Glucose 104 Calcium 8.8 Magnesium 1.7 Urine Color Yellow Urine Appearance Clear Urine pH 5.0 Ur Specific [place] 1.015 Urine Protein Negative Urine Glucose (UA) Negative Urine Ketones 2+ H Urine Occult Blood Negative Urine Nitrate Negative Urine Bilirubin Negative Urine Urobilinogen 0.2 Ur Leukocyte Esterase Negative Urine RBC 0-1/hpf Urine WBC 0-1/hpf Ur Squamous Epith Cells 0-1 /hpf Urine Bacteria None seen Hyaline Casts 1-5/lpf Ur Culture Indicated? Cult not indicated PFSH Medical History Bladder cancer Chicken pox (~1957) Chronic back pain CIS (carcinoma in situ of bladder) Controlled type 2 diabetes mellitus without complication Coronary artery disease Depression Easy bruisability Hearing loss History of primary bladder cancer HTN (hypertension) Measles (~1958) Mixed hyperlipidemia Myocardial infarction Peripheral neuropathy Pneumonia Sleep apnea with use of continuous positive airway pressure (CPAP) Thin skin Tinnitus Wears glasses Surgical History Anesthesia H/O cystoscopy History of surgery (04/04/19) Hx of arthroscopy of right knee Hx of heart artery stent Hx of shoulder surgery (~2013) Hx of tonsillectomy 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) Family History Sister Breast cancer Father History of heart disease COPD (chronic obstructive pulmonary disease) Mother Stroke Brother History of heart disease Social History household members: spouse and family Smoking Status: Never smoker alcohol intake: never substance use type: does not use Discharge Assessment & Plan Assessment and Plan Plan of Treatment: Patient continue all of his usual medications the exception of the gabapentin which will be discontinued. This may be restarted as an outpatient depending on symptoms of his neuropathy perhaps at lower doses. Might be contributing to his altered mental status as an outpatient pre-admission Patient will need to follow-up with Oncology regarding ongoing treatment of his bladder cancer. His Port-A-Cath will be de accessed when he is discharged home Patient is progressing back to baseline as far as mental status. He should continue on a diabetic diet at home. Will be seen in the outpatient clinic by myself within 7-10 days and will need to follow-up with oncology as per Dr. Garza as well Discharge Plan Discharge Plan Patient Disposition: Home Health Service Discharge orders & Medications Prescriptions: New magnesium oxide 400 mg (241.3 mg magnesium) Tablet 400 mg PO BID Qty: 60 RF: 3 Continued aspirin 81 MG tablet,delayed release (DR/EC) 81 mg PO QDAY Qty: 0 RF: 0 multivitamin [Multiple Vitamins] 1 EACH tablet 1 tab PO QDAY Qty: 0 RF: 0 metoprolol succinate [Toprol XL] 50 mg tablet extended release 24 hr 50 mg PO .QHS Qty: 30 RF: 6 lisinopril [Zestril] 5 mg tablet 5 mg PO BEDTIME Qty: 30 RF: 6 atorvastatin 40 mg tablet 40 mg PO HS Qty: 30 RF: 6 bupropion HCl 150 mg tablet sustained-release 12 hr 150 mg PO BID Qty: 180 RF: 3 zolpidem [Ambien] 10 mg tablet 10 mg PO HS PRN (Reason: insomnia) Qty: 30 RF: 2 duloxetine 60 mg capsule,delayed release(DR/EC) 60 mg PO QNOON Qty: 90 RF: 3 oxycodone-acetaminophen 10-325 mg Tablet 1 tab PO Q4-6H PRN (Reason: Bladder cancer) Qty: 120 RF: 0 tramadol 50 mg tablet 50 mg PO Q6H PRN (Reason: pain) Qty: 14 RF: 0 ondansetron 4 mg tablet,disintegrating 4 mg PO Q6HR PRN (Reason: nausea and vomiting) Qty: 10 RF: 0 Discontinued gabapentin [Neurontin] 600 MG tablet 1,200 mg PO TID Qty: 0 RF: 0 prednisone 20 mg Tablet 60 mg PO DAILY Qty: 42 RF: 0 Follow up/Referrals: Jeffrey Hudson MD [Primary Care Provider] - 1 Week Shana Garza MD [Physician] - 1 Week (f/u hospitalization) Diet/Activity/Treatments Diet: Diet as Tolerated and Carb-consistent/Diabetic Discharge Data Primary Care Provider: Jeffrey Hudson
[2020-09-13 08:20] VITALS: BP 114/62; PULSE 89; RESP 16; TEMP 36.3; O2SAT 95
--- NOTE | 2020-09-13 09:44 | OT.IP.TRT ---
Current Diagnoses Hypo-osmolality and hyponatremia (09/10/20) Occupational Therapy Treatment Note M2 OT-IP Current Condition Start: 09/12/20 11:13 Freq: Status: Active Protocol: Document 09/12/20 11:14 [facility] (Rec: 09/12/20 11:33 [facility] [id number]) Occupational Therapy Current Condition Current Condition Evaluation Date 09/12/20 Treatment Diagnosis Hypoatemia, Hypotension, Altered mental status Diagnosis Onset Date 09/10/20 M3 OT- IP Subjective and Pain Start: 09/12/20 11:13 Freq: Status: Active Protocol: Document 09/13/20 09:45 [facility] (Rec: 09/13/20 09:53 [facility] [id number]) OT- Subjective Occupational Therapy Visit Type Type Treatment Note Visit Start Time 09:15 Visit Stop Time 09:44 Total Visit Minutes 29 Occupational Therapy Visit Comments Patient Comments Pt's present in the room. Pt agreed to get dressed as going home today. Patient/Caregiver Goals TO go home. OT Pain Assessment Pain When Pain Assessed At Rest Pain Present Pain Present Denied Pain M4 OT- IP ADL's Start: 09/12/20 11:13 Freq: Status: Active Protocol: Document 09/13/20 09:45 [facility] (Rec: 09/13/20 09:53 [facility] [id number]) OT ADL-Dressing General Eval Lower Body Dressing Ability Contact Guard Assistance Comments OT Dressing Comments CGA for balance while puling up the brief and pants over his feet. OT ADL-Toileting General Evaluation Toileting Ability Standby Assistance Comments OT Toileting Comments Increased time for hygiene needs, no blood noted today after a bowel movement. For safety suggested pt to use urinal at night. M5 OT- IP IADL's Start: 09/12/20 11:13 Freq: Status: Active Protocol: Document 09/12/20 11:14 [facility] (Rec: 09/12/20 11:33 [facility] [id number]) OT-Instrumental Activities of Daily Living Home Safety Awareness Awareness of Need for Assistance at Home Decreased Awareness Ability to Problem Solve Emergency Unable to Problem Solve Situations Medication Management Medication Management Comments Strongly suggested that someone assist pt for medications needs as pt is confused and has decreased STM . Money Management Money Management Caregiver Provides Assistance Meal Preparation Meal Preparation Caregiver Provides Assist Longwall Machine Operator Helper Longwall Machine Operator Helper Caregiver Provides Assist Driving Driving Caregiver Provides Assist M6 OT- IP Functional Cognition Start: 09/12/20 11:13 Freq: Status: Active Protocol: Document 09/13/20 09:45 [facility] (Rec: 09/13/20 09:53 [facility] [id number]) Cognitive Factors Limiting Selfcare Function Cognitive Ability Level of Alertness Alert,Confusional State Patient Orientation Name,Year,Day of Week,Place, Situation Attention Span Ability Capable of Focused Attention, Capable of Sustained Attention ,Unable to Sustain Attention Ability to Follow Commands Able to Follow One Step Commands with Increased Time, Able to Follow One Step Commands with Repetition Memory Description Short Term Impaired Safety Awareness Underestimates Need for Assistance Cognitive Comments Cognitive Assessment Comments Pt thinking some better today and able to problem solve better through dressing needs. Pt needing reminders to keep the FWW in front of him at all times.Pt still needing cues for safety and clothing orientation. Pt's has good understanding to be able to assist pt for al needs. M7 OT- IP Mobility and Balance Start: 09/12/20 11:13 Freq: Status: Active Protocol: Document 09/13/20 09:45 [facility] (Rec: 09/13/20 09:53 [facility] [id number]) OT-Transfer Assessment Sit to and From Stand Sit to and from Stand Standby Assistance,Contact Guard Assistance Transfers Transfer Ability Standby Assistance,Contact Guard Assistance Technique Transfer Destination Bed,Toilet Transfer Technique Stand Step Pivot Devices Transfer Assistive Devices None,Gait Belt,4 Wheeled Walker Comments Mobility Comments Pt unsteady to come to stand and having his weight on his heels. Suggested best for pt to use FWW/4ww all the time for safety. OT- Balance Assessment Sitting Balance and Reactions Static Sitting Balance Ability Normal Dynamic Sitting Balance Ability Good Standing Balance and Reactions Static Standing Balance Ability Fair M8 OT- IP Objective Assessments Start: 09/12/20 11:13 Freq: Status: Active Protocol: Document 09/12/20 11:14 [facility] (Rec: 09/12/20 11:33 [facility] [id number]) OT Gross Range of Motion Upper Extremity Range of Motion Assessment Within Functional Limits OT-Muscle Tone Assessment Muscle Tone WNL Yes M9 OT- IP Assessment and Plan Start: 09/12/20 11:13 Freq: Status: Active Protocol: Document 09/13/20 09:45 [facility] (Rec: 09/13/20 09:53 [facility] [id number]) OT Summary Assessment and Plan Potential Rehabilitation Potential Good Analytic Complexity at Evaluation Moderate Summary OT Impairments Strength,Balance,Functional Cognition,Functional Mobility, Grooming,Dressing,Toileting, Bathing,Toilet Transfers, Shower Transfers,Activity Tolerance Progress Towards Goals Progressing Toward Goals Assessment Summary Pt looking to go home today with his and have home health. Pt's aware to provide 24/7 available assist to pt as pt a little unsteady on his feet and still a bit slow to sequence through tasks and needing safety cues. Discharge Recommendations OT Discharge Recommendations Home with 24/7 Assist Available,Home Health Home Equipment Needs tub bench Transportation Needs at Discharge Private Vehicle
[2020-09-13] MEDS: SODIUM CHLORIDE 0.9% FLUSH 10 ML IV (09:54)
[2020-09-13] MEDS: buPROPion SR 150 MG TAB PO (10:00)
[2020-09-13] MEDS: MAGNESIUM OXIDE 400 MG TABLET PO (10:00)
[2020-09-13] MEDS: ASPIRIN EC 81 MG TABLET PO (10:00)
[2020-09-13] MEDS: OXYCODONE IR 5 MG TABLET PO (10:04)
[2020-09-13 10:20] VITALS: O2SAT 96
--- NOTE | 2020-09-13 11:10 | PT-IP ANOTE ---
Pt with RN going over d/c paperwork and has no further needs before d/c.
--- NOTE | 2020-09-13 11:12 | PC.NURSE ---
Day shift: Paperwork signed and all questions answered. SPouse in room for teachings. Pt has f/u's with Onc as well as Dr Hudson early next week. Those appointments have been made and Pt is aware. New MD script went to Pt's pharmacy. Pt has all personal belongings. Taken to car in by SAMMI Knutson. Pt's spouse is driving him home. Pt stated I'm very happy to be going home today and now. Thank you.
--- NOTE | 2020-09-13 12:19 | CM.DPNOTE ---
Faxed referral packet to Ailyn at [facility] on 09/13/20 and received confirm. Hansa Antony CM Asst.
--- NOTE | 2020-09-13 13:39 | CM.DPNOTE ---
Addendum entered by YARI Jefferson 09/13/20 15:04: MILLICENT Robertson updated that patient discharged today. Packet received and patient's start of care will likely be ThursdaySeptember 17 Original Note: DC Note Spoke w/ Dr Hudson this morning, patient being discharged home w/ [facility]. F2F signed. Patient eager to return home w/spouse. 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
== END 2020-09-13 11:16 | disposition home or self-care (01) | DRG 640 ==
LOC: ED 18:04 → AC 18:04 → ICU 19:28
PROVIDERS: Admitting Provider Internal Medicine; Emergency Provider Emergency Medicine; PCP Internal Medicine; Referring Provider Emergency Medicine; Visit Provider Internal Medicine
DX: E87.1 Hypo-osmolality and hyponatremia (principal); G93.41 Metabolic encephalopathy; N17.9 Acute kidney failure, unspecified; E83.42 Hypomagnesemia; E86.9 Volume depletion, unspecified; R32 Unspecified urinary incontinence; R73.9 Hyperglycemia, unspecified; I10 Essential (primary) hypertension; E78.2 Mixed hyperlipidemia; D09.0 Carcinoma in situ of bladder; Z20.822 Contact with and (suspected) exposure to COVID-19
CPT/HCPCS: 36415; 36591; 71046; 80048; 80053; 81001; 82533; 82550; 82553; 82962; 83605; 83690; 83735; 83880; 84443; 84484; 85025; 87040; 87635; 93005; 96360; 97116; 97162; 97166; 97530; 97535; 99214; 99223; 99233; 99238; 99284; C9803; J1642; J1650; J1815; J2920; J3475

== ENCOUNTER → 2020-09-20 10:53 | Outpatient (CLI) | payer MEDICARE, BC, SELFPAY ==
[2020-09-11 03:25] VITALS: BMI 31.4
[2020-09-20 11:48] LABS: Add Manual Diff / Slide Review NO; Basophils Absolute Auto 0 /uL (0-100); Basophils Percent Auto 0.3 % (0-2); Eosinophils Absolute Auto 400 /uL (0-450); Eosinophils Percent Auto 4.9 % (2-4); Hematocrit 36.3 % (41-53); Hemoglobin 12.1 g/dL (13.5-17.5); Lymphocytes Absolute Auto 2700 /uL (1100-4500); Lymphocytes Percent Auto 35.1 % (25-40); Mean Corpuscular HGB Conc 33.4 % (30-36); Mean Corpuscular Hemoglobin 32.8 PG (26-34); Mean Corpuscular Volume 98.2 fL (80-100); Monocytes Absolute Auto 700 /uL (0-900); Monocytes Percent Auto 9.5 % (3-14); Neutrophils Absolute Auto 3900 /uL (1500-7000); Neutrophils Percent Auto 50.2 % (50-75); Platelet Count 217 X10^3/uL (150-400); Red Blood Cell Count 3.69 X10^6/uL (4.5-5.9); Red Cell Distribution Width 13.2 % (11.6-14.8); White Blood Cell Count 7.7 X10^3/uL (4.5-11.0)
[2020-09-20 12:02] LABS: Alanine Aminotransferase 24 IU/L (<50); Albumin 3.5 g/dL (3.5-5.0); Albumin Globulin Ratio 1.3 (1.0-2.8); Alkaline Phosphatase 51 U/L (38-126); Aspartate Aminotransferase 36 IU/L (17-59); BUN Creatinine Ratio 14.9 (6-22); Bilirubin Total 0.4 mg/dL (0.2-1.3); Blood Urea Nitrogen 14 mg/dL (9-20); C-Reactive Protein Quant < 0.5 mg/dL (<1.0); Calcium 9.7 mg/dL (8.4-10.2); Carbon Dioxide 30 mmol/L (22-32); Chloride 99 mmol/L (98-107); Estimated Glomerular Filt Rate > 60.0 mL/min (>60); Globulin 2.6 g/dL (1.7-4.1); Glucose 111 mg/dL (80-110); HEMOLYSIS < 15 (0-50); Potassium 4.1 mmol/L (3.4-5.1); Sodium 133 mmol/L (137-145); Total Protein 6.1 g/dL (6.3-8.2)
[2020-09-20 12:12] LABS: Erythrocyte Sedimentation Rate 37 MM/HR (0-15)
[2020-09-20 12:48] LABS: Free T4, Direct Thyroxine 0.69 ng/dL (0.78-2.19)
[2020-09-20 13:02] LABS: Thyroid Stimulating Hormone 4.23 uIU/mL (0.47-4.68)
== END ==
PROVIDERS: PCP Internal Medicine; Referring Provider Internal Medicine; Visit Provider Internal Medicine
DX: E78.2 Mixed hyperlipidemia (principal); E87.1 Hypo-osmolality and hyponatremia; I10 Essential (primary) hypertension; E03.9 Hypothyroidism, unspecified
CPT/HCPCS: 36415; 80053; 84439; 84443; 85025; 85651; 86140

== ENCOUNTER 2020-10-18 15:56 | Inpatient (IN) | payer MEDICARE, BC, SELFPAY ==
[2020-10-18] VITALS (17 sets, daily range): BP systolic 91–111; BP diastolic 52–75; PULSE 77–87; RESP 7–20; TEMP 36.4–37; O2SAT 94–100; BMI 30.7; BMI 29.5
--- NOTE | 2020-10-18 16:30 | DI.RAD.S_ITS ---
PROCEDURE: XR CHEST 1V INDICATIONS: altered mental status TECHNIQUE: One view of the chest was acquired. COMPARISON: [facility], CR, XR CHEST 2V, 09/12/2020, 8:38. FINDINGS: Surgical changes and devices: Left Port-A-Cath is noted. Lungs and pleura: Slight appearance of hazy opacity is noted within the right base with blunting of the costophrenic angle. Mediastinum: Mediastinal contours appear normal. Heart size is normal. Bones and chest wall: No suspicious bony lesions. Overlying soft tissues appear unremarkable. IMPRESSION: Minimal right basilar opacity with blunting of the costophrenic angle most suggestive of trace effusion. Dictated by: Nery Rivera M.D. on 10/18/2020 at 16:48 Approved by: Nery Rivera M.D. on 10/18/2020 at 16:48
[2020-10-18 16:41] LABS: Alanine Aminotransferase 14 IU/L (<50); Albumin 3.5 g/dL (3.5-5.0); Albumin Globulin Ratio 1.3 (1.0-2.8); Alkaline Phosphatase 43 U/L (38-126); Aspartate Aminotransferase 38 IU/L (17-59); Bilirubin Total 0.8 mg/dL (0.2-1.3); Blood Urea Nitrogen 20 mg/dL (9-20); Calcium 11.4 mg/dL (8.4-10.2); Carbon Dioxide 30 mmol/L (22-32); Chloride 93 mmol/L (98-107); Estimated Glomerular Filt Rate 53.3 mL/min (>60); Globulin 2.6 g/dL (1.7-4.1); Glucose 96 mg/dL (80-110); HEMOLYSIS < 15 (0-50); Potassium 3.9 mmol/L (3.4-5.1); Sodium 129 mmol/L (137-145); Total Protein 6.1 g/dL (6.3-8.2)
[2020-10-18 16:43] LABS: Add Manual Diff / Slide Review NO; Basophils Absolute Auto 0 /uL (0-100); Basophils Percent Auto 0.5 % (0-2); Eosinophils Absolute Auto 200 /uL (0-450); Eosinophils Percent Auto 3.2 % (2-4); Hematocrit 32.6 % (41-53); Lymphocytes Absolute Auto 2300 /uL (1100-4500); Mean Corpuscular HGB Conc 33.8 % (30-36); Mean Corpuscular Hemoglobin 33.1 PG (26-34); Monocytes Absolute Auto 700 /uL (0-900); Monocytes Percent Auto 9.5 % (3-14); Neutrophils Absolute Auto 4400 /uL (1500-7000); Neutrophils Percent Auto 56.8 % (50-75); Platelet Count 155 X10^3/uL (150-400); Red Blood Cell Count 3.32 X10^6/uL (4.5-5.9); Red Cell Distribution Width 13.1 % (11.6-14.8); White Blood Cell Count 7.8 X10^3/uL (4.5-11.0)
[2020-10-18] MEDS: ONDANSETRON 4 MG/2 ML INJ IV (17:45)
--- NOTE | 2020-10-18 18:09 | DI.CT.S_ITS ---
PROCEDURE: CT HEAD/BRAIN WO CON INDICATIONS: altered, mental status change, CA history TECHNIQUE: Noncontrast 4.5 mm thick angled axial sections acquired from the foramen magnum to the vertex, with coronal and sagittal reformats. For radiation dose reduction, the following was used: automated exposure control, adjustment of mA and/or kV according to patient size. COMPARISON: None. FINDINGS: Image quality: Excellent. CSF spaces: Basal cisterns are patent. No extra-axial fluid collections. The ventricles are symmetric in size and shape. Brain: No intracranial bleeds or masses. There is cerebral volume loss for age, with resultant ventricular and sulcal prominence. There are periventricular and deep white matter chronic small vessel ischemic changes. There is intracranial internal carotid artery atherosclerosis. Skull and face: Calvarium and visualized facial bones appear intact, without suspicious lesions. 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 IMPRESSION: 1. No acute intracranial process. 2. Mild atrophy and chronic microvascular ischemic changes. Dictated by: Nery Rivera M.D. on 10/18/2020 at 18:30 Approved by: Nery Rivera M.D. on 10/18/2020 at 18:32
--- NOTE | 2020-10-18 18:21 | ED.AMS ---
HPI - Altered Mental Status General Chief Complaint: Altered Mental Status Stated Complaint: New Med/hallucinating Time Seen by Provider: 10/18/20 18:07 Source: EMS Mode of arrival: EMS Limitations: altered mental status History of Present Illness HPI narrative: 70-year-old male nonsmoker with a history of hyperlipidemia, bladder cancer chemotherapy (pembrolizumab), hyponatremia presents with his in the chief complaint of at least a week of gradually worsening mental status and overall health. He had recently been admitted for confusion and altered mental status and was diagnosed with hyponatremia (as low as 124). He was admitted for 4 days and some alterations in medications were made. He had been doing okay at home for a bit but as stated, he has been worsening over the past week. He has become lightheaded, weak and forgetful. He is now seeing things that are not there, confused and not eating. His primary care provider was made aware and just a few days ago was started on Ritalin with the hopes that it would help his appetite. His symptoms rapidly worsened after that medication, but admittedly were present prior. He has had nausea and vomiting. He denies any focal neurologic findings such as blurred vision, trouble with speech or extremity weakness. He denies any trauma he has had no fever or chills Related Data Home Medications Medication Instructions Recorded Confirmed aspirin 81 mg tablet,delayed 81 mg PO QDAY #0 04/18/16 10/18/20 release multivitamin (Multiple Vitamins) 1 tab PO QDAY #0 04/18/16 10/18/20 Previous Rx's Medication Instructions Recorded duloxetine 60 mg capsule,delayed 60 mg PO QNOON #90 cap 03/22/20 release atorvastatin 40 mg tablet 40 mg PO HS #30 tab 06/12/20 bupropion HCl 150 mg tablet,12 hr 150 mg PO BID #180 ea 07/06/20 sustained-release oxycodone-acetaminophen 10 mg-325 1 tab PO Q4-6H PRN #120 tab 08/21/20 mg tablet zolpidem 10 mg tablet (Ambien) 10 mg PO HS PRN #30 tab 09/06/20 magnesium oxide 400 mg (241.3 mg 400 mg PO BID #60 tab 09/13/20 magnesium) tablet levothyroxine 50 mcg tablet 50 mcg PO DAILY #90 tab 09/20/20 metoprolol succinate 25 mg 25 mg PO DAILY #30 tab 09/20/20 tablet,extended release 24 hr methylphenidate HCl 5 mg tablet 5 mg PO BID #60 tab 10/16/20 ondansetron 4 mg disintegrating 4 mg PO Q6HR PRN #24 tab 10/16/20 tablet Allergies Allergy/AdvReac Type Severity Reaction Status Date / Time Sulfa (Sulfonamide Allergy Unknown Unknown Verified 09/20/20 10:07 Antibiotics) reaction [SULFA (SULFONAMIDE per patient ANTIBIOTICS)] morphine AdvReac Severe Delirium, Verified 09/20/20 10:07 constipation prednisone AdvReac Intermediate Psychosis Verified 09/20/20 10:07 erythromycin base AdvReac Mild VOMITING Verified 09/20/20 10:07 [ERYTHROMYCIN BASE] tetracycline [TETRACYCLINE] AdvReac Mild VOMITING Verified 09/20/20 10:07 Review of Systems Review of Systems Narrative: GENERAL: See HPI HEENT: Denies sinus pain, ear pain, sore throat, difficulty swallowing, dizziness. RESPIRATORY: Denies dyspnea, cough, wheezing, hemoptysis, sputum. CARDIOVASCULAR: Denies chest pain, palpitations, orthopnea, edema, GASTROINTESTINAL: See HPI. : Denies dysuria, frequency, incontinence, hematuria, urinary retention. MUSCULOSKELETAL: denies weakness, joint pain, or bony pain SKIN: Denies rash, skin lesions, or other NEUROLOGIC: See HPI PSYCHIATRIC: No concerning psychosocial issues. 12 point review of systems is negative except for those stated above Patient History Medical History Bladder cancer Chronic back pain CIS (carcinoma in situ of bladder) Controlled type 2 diabetes mellitus without complication Coronary artery disease Depression Easy bruisability Hearing loss History of primary bladder cancer HTN (hypertension) Mixed hyperlipidemia Myocardial infarction Peripheral neuropathy Pneumonia Sleep apnea with use of continuous positive airway pressure (CPAP) Thin skin Tinnitus Wears glasses Surgical History Anesthesia H/O cystoscopy History of surgery (04/04/19) Hx of arthroscopy of right knee Hx of heart artery stent Hx of shoulder surgery (~2013) Hx of tonsillectomy 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) Family History Sister Breast cancer Father History of heart disease COPD (chronic obstructive pulmonary disease) Mother Stroke Brother History of heart disease Social History household members: spouse and family Smoking Status: Never smoker alcohol intake: never substance use type: does not use Smoking Status: Never smoker Substance Use Type: marijuana Exam Narrative Exam Narrative: GENERAL: [70 year old patient appears stated age. Well-developed patient, in mild distress. GCS 14 (confused) HEAD: Atraumatic. Normocephalic. EYES: Pupils equal round and reactive. Extraocular motions intact. No scleral icterus. No injection or drainage. ENT: Dry mucous membranes Nose without bleeding, purulent drainage. Throat without erythema, tonsillar hypertrophy or exudate. Airway patent. NECK: Trachea midline. Non tender CARDIOVASCULAR: Regular rate and rhythm without murmurs, gallops, or rubs. RESPIRATORY: Clear to auscultation. Breath sounds equal bilaterally. No wheezes, rales, or rhonchi. GASTROINTESTINAL: Abdomen soft, non-tender, nondistended. EXTREMITIES: No edema or joint tenderness. BACK: Nontender without deformity or crepitance. No flank tenderness. NEURO: AOx3. 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) Stat Urine Drug Screen, Rapid Stat 10/19/20 05:00 Basic Metabolic Panel Routine Acetaminophen (Acetaminophen 325 Mg Tablet) 650 mg PO Q6HR PRN PRN Reason: Fever/Mild Pain (1-3) Atorvastatin Calcium (Atorvastatin 20 Mg Tablet) 40 mg PO BEDTIME BABS Bupropion HCl (Bupropion Sr 150 Mg Tab) 150 mg PO BID BABS Last Admin: 10/18/20 21:36 Dose: 150 mg Documented by: KIM Dextrose (Dextrose 50 % In Water 25 Gm/50 Ml Syringe) 25 gm IV PRN PRN PRN Reason: Hypoglycemia Duloxetine HCl (Duloxetine 30 Mg Capsule) 60 mg PO QNOON [facility] Enoxaparin Sodium (Enoxaparin 30 Mg/0.3 Ml Syringe) 30 mg SUBCUT DAILY [facility] Sodium Chloride (Normal Saline 0.9%) 1,000 mls @ 100 mls/hr IV CONT [facility] Last Admin: 10/18/20 21:34 Dose: 100 mls/hr Documented by: KIM Insulin Human Lispro (Insulin Lispro 100 Unit/Ml 3ml Vial) 0 unit SUBCUT ACHS [facility]; Protocol Levothyroxine Sodium (Levothyroxine 50 Mcg Tablet) 50 mcg PO DAILY [facility] Magnesium Oxide (Magnesium Oxide 400 Mg Tablet) 400 mg PO BID [facility] Last Admin: 10/18/20 21:36 Dose: 400 mg Documented by: KIM Multivitamins (Multivitamin 1 Tablet) 1 tab PO DAILY [facility] Naloxone HCl (Naloxone 0.4 Mg/Ml Vial) 0.2 mg IV Q2MIN PRN PRN Reason: Opiate Reversal Ondansetron HCl (Ondansetron 4 Mg/2 Ml Inj) 4 mg IV Q8HR PRN PRN Reason: Nausea And Vomiting Discontinued Medications Sodium Chloride (Normal Saline 0.9%) 500 mls @ 1,000 mls/hr IV BOLUS ONE Stop: 10/18/20 18:49 Last Infusion: 10/18/20 19:38 Dose: 0 mls/hr Documented by: Admin: 10/18/20 18:28 Dose: 1,000 mls/hr Documented by: ABA Ondansetron HCl (Ondansetron 4 Mg/2 Ml Inj) 4 mg IV NOW ONE Stop: 10/18/20 18:07 Last Admin: 10/18/20 17:45 Dose: 4 mg Documented by: ABA Vital Signs Vital signs: Vital Signs - 8 hr 10/18/20 18:45 10/18/20 19:00 10/18/20 19:15 Pulse Rate 78 77 79 Respiratory Rate 14 12 Blood Pressure 95/58 L 95/55 L 107/59 L Pulse Oximetry 97 100 97 10/18/20 19:30 10/18/20 19:45 Pulse Rate 77 80 Respiratory Rate 10 L 7 L Blood Pressure 94/52 L 97/60 Pulse Oximetry 97 100 MDM - Altered Mental Status Lab Data Result diagrams: 10/18/20 16:08 10/18/20 16:08 Labs: Lab Results 10/18/20 10/18/20 10/18/20 Range/Units 16:08 16:08 18:30 WBC 7.8 (4.5-11.0) X10^3/uL RBC 3.32 L (4.5-5.9) X10^6/uL Hgb 11.0 L (13.5-17.5) g/dL Hct 32.6 L (41-53) % MCV 98.0 (80-100) fL MCH 33.1 (26-34) PG MCHC 33.8 (30-36) % RDW 13.1 (11.6-14.8) % Plt Count 155 (150-400) X10^3/uL Neut % (Auto) 56.8 (50-75) % Lymph % (Auto) 30.0 (25-40) % [place] % (Auto) 9.5 (3-14) % Eos % (Auto) 3.2 (2-4) % Baso % (Auto) 0.5 (0-2) % Neut # (Auto) 4400 (9229-2339) /uL Lymph # (Auto) 2300 (4058-3866) /uL [place] # (Auto) 700 (0-900) /uL Eos # (Auto) 200 (0-450) /uL Baso # (Auto) 0 (0-100) /uL Sodium 129 L (137-145) mmol/L Potassium 3.9 (3.4-5.1) mmol/L Chloride 93 L (98-107) mmol/L Carbon Dioxide 30 (22-32) mmol/L BUN 20 (9-20) mg/dL Creatinine 1.33 H (0.66-1.25) mg/dL Estimated GFR 53.3 L (>60) mL/min BUN/Creatinine Ratio 15.0 (6-22) Glucose 96 (80-110) mg/dL Calcium 11.4 H (8.4-10.2) mg/dL Total Bilirubin 0.8 (0.2-1.3) mg/dL AST 38 (17-59) IU/L ALT 14 (<50) IU/L Alkaline Phosphatase 43 (38-126) U/L Total Protein 6.1 L (6.3-8.2) g/dL Albumin 3.5 (3.5-5.0) g/dL Globulin 2.6 (1.7-4.1) g/dL Albumin/Globulin Ratio 1.3 (1.0-2.8) U Opiates 300ng/mL cut Positive H (Negative) Ur Oxycodone Screen Positive H (Negative) Urine Methadone Screen Negative (Negative) Ur Barbiturates Screen Negative (Negative) U Tricyclic Antidepress Negative (Negative) Ur Phencyclidine Scrn Negative (Negative) Ur Amphetamines Screen Negative (Negative) U Methamphetamines Scrn Negative (Negative) Ur MDMA Scrn (Ecstasy) Negative (Negative) U Benzodiazepines Scrn Negative (Negative) Urine Cocaine Screen Negative (Negative) U Marijuana (THC) Screen Negative (Negative) SARS-CoV-2 (PCR) (Negative) 10/18/20 Range/Units 18:30 WBC (4.5-11.0) X10^3/uL RBC (4.5-5.9) X10^6/uL Hgb (13.5-17.5) g/dL Hct (41-53) % MCV (80-100) fL MCH (26-34) PG MCHC (30-36) % RDW (11.6-14.8) % Plt Count (150-400) X10^3/uL Neut % (Auto) (50-75) % Lymph % (Auto) (25-40) % [place] % (Auto) (3-14) % Eos % (Auto) (2-4) % Baso % (Auto) (0-2) % Neut # (Auto) (3862-1786) /uL Lymph # (Auto) (8320-5841) /uL [place] # (Auto) (0-900) /uL Eos # (Auto) (0-450) /uL Baso # (Auto) (0-100) /uL Sodium (137-145) mmol/L Potassium (3.4-5.1) mmol/L Chloride (98-107) mmol/L Carbon Dioxide (22-32) mmol/L BUN (9-20) mg/dL Creatinine (0.66-1.25) mg/dL Estimated GFR (>60) mL/min BUN/Creatinine Ratio (6-22) Glucose (80-110) mg/dL Calcium (8.4-10.2) mg/dL Total Bilirubin (0.2-1.3) mg/dL AST (17-59) IU/L ALT (<50) IU/L Alkaline Phosphatase (38-126) U/L Total Protein (6.3-8.2) g/dL Albumin (3.5-5.0) g/dL Globulin (1.7-4.1) g/dL Albumin/Globulin Ratio (1.0-2.8) U Opiates 300ng/mL cut (Negative) Ur Oxycodone Screen (Negative) Urine Methadone Screen (Negative) Ur Barbiturates Screen (Negative) U Tricyclic Antidepress (Negative) Ur Phencyclidine Scrn (Negative) Ur Amphetamines Screen (Negative) U Methamphetamines Scrn (Negative) Ur MDMA Scrn (Ecstasy) (Negative) U Benzodiazepines Scrn (Negative) Urine Cocaine Screen (Negative) U Marijuana (THC) Screen (Negative) SARS-CoV-2 (PCR) Negative (Negative) Point of Care Testing Glucose POC 96 Urine Dip Bedside Urine Glucose Negative Bedside Urine Bilirubin - Negative Bedside Urine Ketone - Negative Urine Specific [place] 1.030 Bedside Urine Occult Blood - Negative Bedside Urine pH 6.0 Bedside Urine Protein - Negative Bedside Urine Urobilinogen - Negative Bedside Urine Nitrite - Negative Bedside Urine Leukocytes - Negative Esterase Discharge Plan Departure Patient Disposition: Admitted As Inpatient Clinical Impression: Acute delirium, Acute hyponatremia, Acute dehydration Admit Date/Time: 10/18/20 19:46 Admit Provider: Jeffrey Hudson
[2020-10-18] MEDS: SODIUM CHLORIDE 0.9% 500 ML 1000 ML IV (18:28)
[2020-10-18 18:59] LABS: UR Morphine/Opiate cutoff 300 Positive (Negative); Ur Creatinine Normal (Normal); Ur Specific Gravity Normal (Normal); Urine Amphetamines Negative (Negative); Urine Barbiturates Negative (Negative); Urine Benzodiazepines Negative (Negative); Urine Cocaine Negative (Negative); Urine MDMA Negative (Negative); Urine Methadone Negative (Negative); Urine Methamphetamines Negative (Negative); Urine Oxycodone Positive (Negative); Urine Phencyclidine Negative (Negative); Urine Tetrahydrocannabinol Negative (Negative); Urine Tricyclic Antidepressant Negative (Negative); Urine pH Normal (Normal)
[2020-10-18 20:02] LABS: COVID19 - ADMIT (NP swab/PCR) Negative (Negative)
[2020-10-18] MEDS: SODIUM CHLORIDE 0.9% 1,000 ML 100 ML IV (21:34)
[2020-10-18] MEDS: MAGNESIUM OXIDE 400 MG TABLET PO (21:36)
[2020-10-18] MEDS: buPROPion SR 150 MG TAB PO (21:36)
--- NOTE | 2020-10-18 21:55 | PC.NURSE ---
admit pt to AC from ED via stretcher and accompanied by supportive spouse. VSS. Pt able to states name, age, birthday, and place but unsure of other questioning. pt answers most questions with sentences that don't correlate to question though is able to voice needs coherently. Pt agreeable and cooperative to all care. Poor PO intake per pt and , pt provided with water and applesauce upon request once given choices. swallow without difficulty. NS infusing at 100cc/hr to port in L chest. Port flushes and draws without difficulty. Pt oriented to room and plan of care. Bed alarm on and call light in reach.
[2020-10-19] VITALS (8 sets, daily range): BP systolic 92–120; BP diastolic 50–64; PULSE 89–95; RESP 15–20; TEMP 36.3–37; O2SAT 94–100
[2020-10-19 06:37] LABS: BUN Creatinine Ratio 14.1 (6-22); Blood Urea Nitrogen 18 mg/dL (9-20); Calcium 10.6 mg/dL (8.4-10.2); Carbon Dioxide 27 mmol/L (22-32); Chloride 98 mmol/L (98-107); Estimated Glomerular Filt Rate 55.7 mL/min (>60); Glucose 86 mg/dL (80-110); HEMOLYSIS < 15 (0-50); Potassium 3.7 mmol/L (3.4-5.1); Sodium 129 mmol/L (137-145)
--- NOTE | 2020-10-19 07:00 | DI.MRI.S_ITS ---
PROCEDURE: MR STROKE Pre- and post-contrast brain MRI, non-contrast brain MR angiogram, pre- and postcontrast neck MR angiogram INDICATIONS: altered mental status TECHNIQUE: Brain: Noncontrast axial T1 spin echo, axial T2 fast spin echo, sagittal and axial FLAIR, coronal T2 fast spin echo, axial gradient echo, axial diffusion and ADC through the brain. After the administration of contrast, axial 3D VIBE of the cranial vasculature and brain. Brain MRA: Non-contrast 3-D time of flight MR angiogram, with multiple aguqxyl-jijpthtsm-mzvacpwgzl (MIP) reformats performed. Neck MRA: Axial and sagittal TruFISP through the neck. Coronal dynamic MR angiogram during administration of contrast in the arterial and venous phases, with 3-dimenstional arayiik-ttwhttvls-emghnikqhq (MIP) reformats constructed from subtraction images. COMPARISON: None. FINDINGS: Image quality: Excellent. BRAIN: CSF spaces: Ventricles are normal in size and shape. Basal cisterns are patent. No extra-axial fluid collections. Brain: No intracranial bleeds or mass effects. Potter-white matter interface is normal. Diffusion weighted images show no acute ischemic insults. Brainstem appears normal. Normal intravascular flow voids are present. Dural sinuses demonstrate normal postcontrast enhancement. No abnormal intracranial enhancement. Skull and face: Calvarial marrow signal is normal. Orbits appear normal. Sinuses: Mucosal thickening causes complete opacification of the right frontal sinus. Mild mucosal thickening in the maxillary sinuses bilaterally. The mastoids are clear. BRAIN MR ANGIOGRAM: Anterior circulation: Intracranial internal carotid arteries are normal in size and enhancement. The flow within the paired anterior cerebral arteries is normal and symmetric. The flow within the middle cerebral arteries is normal and symmetric. The anterior communicating artery is seen. No stenoses, occlusions, or aneurysms. Posterior circulation: The visualized portions of the vertebral arteries demonstrate normal caliber, and join to form a normal appearing basilar artery. The flow within the posterior cerebral arteries is normal and symmetric. No stenoses, occlusions, or aneurysms. NECK MR ANGIOGRAM: Carotids: Great vessels demonstrate a conventional anatomy as they arise from the aortic arch. The origins of the common carotid arteries appear patent. The calibers and courses of both common carotid arteries are normal. The bifurcation regions appear normal bilaterally. The internal carotid arteries demonstrate normal course and caliber. Posterior circulation: The origins of the vertebral arteries appear patent. More superior portions of both vertebral arteries demonstrate normal course and caliber, and join to form a normal appearing basilar artery. Miscellaneous: Subclavian arteries appear patent. Pre-contrast images through the neck show no soft tissue abnormalities. IMPRESSION: BRAIN MRI: 1. No acute intracranial disease process. 2. No areas of acute or chronic infarction. 3. No intracranial hemorrhage. 4. Mild, diffuse cerebral volume loss. 5. Mild periventricular and subcortical white matter chronic microvascular ischemic change. 6. Right frontal and bilateral maxillary sinusitis. BRAIN MR ANGIOGRAM: No large vessel occlusion, hemodynamically significant vascular stenosis, vascular dissection or aneurysm. NECK MR ANGIOGRAM: No large vessel occlusion, hemodynamically significant vascular stenosis, vascular dissection or aneurysm. Dictated by: Tori Lewis MD, PhD on 10/19/2020 at 12:24 Approved by: Tori Lewis MD, PhD on 10/19/2020 at 12:29
--- NOTE | 2020-10-19 07:28 | P.HP_ITS ---
History of Present Illness History of Present Illness Date Patient Seen: 10/19/20 Time Patient Seen: 07:28 Chief complaint: New Med/hallucinating Narrative: 70-year-old male who has been struggling with bladder cancer admitted for altered mental status hallucinations etcetera Patient hospitalized [facility] between September 10 and September 13 because of altered mental status thought to be secondary to hyponatremia and relative dehydration. That was felt to be secondary to an abnormal reaction to Keytruda which is being used or was being used to treat his bladder cancer. With hydration and correction of his electrolyte abnormalities patient rapidly retu rned to near baseline and was very very anxious to return home. Since return home at that time at the end of August patient has struggled to eat or drink, he finds that nothing tastes good and has no appetite. Also had some persistent nausea and occasional emesis He continued to have very limited oral intake and spent much of the day in bed. In effort to improve what I felt was significant depression despite the fact patient is already on duloxetine and bupropion low-dose methylphenidate was added. With this patient seem to actually more acutely get worse with increased disorientation hallucinations and further lack of oral intake He was directed to the [facility] Emergency Department on day of admission. Mild hyponatremia, as well as slight bump in patients creatinine were noted and he was admitted for further evaluation Patient's white blood cell count chest x-ray and head CT were essentially unremarkable in the ER. Obvious evidence of an infectious etiology, although urinalysis was not performed patient apparently not complaining of any urinary tract symptoms For me this morning patient does not recognize me but remembers some details as above. He does seem to be altered in his mental status and much of the above information is obtained from ER notes as well as his chart and my personal recollection of the events over the last several weeks. Patient History Medical History Bladder cancer Chronic back pain CIS (carcinoma in situ of bladder) Controlled type 2 diabetes mellitus without complication Coronary artery disease Depression Easy bruisability Hearing loss History of primary bladder cancer HTN (hypertension) Mixed hyperlipidemia Myocardial infarction Peripheral neuropathy Pneumonia Sleep apnea with use of continuous positive airway pressure (CPAP) Thin skin Tinnitus Wears glasses Surgical History Anesthesia H/O cystoscopy History of surgery (04/04/19) Hx of arthroscopy of right knee Hx of heart artery stent Hx of shoulder surgery (~2013) Hx of tonsillectomy 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) Family & Social History Family History Sister Breast cancer Father History of heart disease COPD (chronic obstructive pulmonary disease) Mother Stroke Brother History of heart disease Social History: household members spouse,family Prior Living Arrangements House Safety & Behavioral: Feels Safe in Current Yes Environment Been Physically Hurt or No Threatened By a Person Suicidal Ideation Description None Suicide Plan Description No Plan Tobacco & Substance use: Smoking Status Never smoker alcohol intake never Substance Use Type does not use Meds Home Medications and Allergies Home Medications Medication Instructions Recorded Confirmed Type aspirin 81 mg tablet,delayed 81 mg PO QDAY #0 04/18/16 10/18/20 History release multivitamin (Multiple Vitamins) 1 tab PO QDAY #0 04/18/16 10/18/20 History duloxetine 60 mg capsule,delayed 60 mg PO QNOON #90 cap 03/22/20 10/18/20 Rx release atorvastatin 40 mg tablet 40 mg PO HS #30 tab 06/12/20 10/18/20 Rx bupropion HCl 150 mg tablet,12 hr 150 mg PO BID #180 ea 07/06/20 10/18/20 Rx sustained-release oxycodone-acetaminophen 10 mg-325 1 tab PO Q4-6H PRN #120 tab 08/21/20 10/18/20 Rx mg tablet zolpidem 10 mg tablet (Ambien) 10 mg PO HS PRN #30 tab 09/06/20 10/18/20 Rx magnesium oxide 400 mg (241.3 mg 400 mg PO BID #60 tab 09/13/20 10/18/20 Rx magnesium) tablet levothyroxine 50 mcg tablet 50 mcg PO DAILY #90 tab 09/20/20 10/18/20 Rx metoprolol succinate 25 mg 25 mg PO DAILY #30 tab 09/20/20 10/18/20 Rx tablet,extended release 24 hr methylphenidate HCl 5 mg tablet 5 mg PO BID #60 tab 10/16/20 10/18/20 Rx ondansetron 4 mg disintegrating 4 mg PO Q6HR PRN #24 tab 10/16/20 10/18/20 Rx tablet Allergies Allergy/AdvReac Type Severity Reaction Status Date / Time Sulfa (Sulfonamide Allergy Unknown Unknown Verified 09/20/20 10:07 Antibiotics) reaction [SULFA (SULFONAMIDE per patient ANTIBIOTICS)] morphine AdvReac Severe Delirium, Verified 09/20/20 10:07 constipation prednisone AdvReac Intermediate Psychosis Verified 09/20/20 10:07 erythromycin base AdvReac Mild VOMITING Verified 09/20/20 10:07 [ERYTHROMYCIN BASE] tetracycline [TETRACYCLINE] AdvReac Mild VOMITING Verified 09/20/20 10:07 Review of Systems Constitutional Constitutional: Denies excessive sweating, Denies fever(s), Denies headache(s), Reports weakness, Denies weight gain and Reports weight loss Eyes Eyes: Denies change in vision, Denies itchy eyes, Denies loss of vision and Denies other visual disturbances ENT Ears, Nose, Mouth, and Throat: No dizziness, No headache(s), No lip swelling, No neck pain, No throat swelling and No tongue swelling Cardiovascular Cardiovascular: Denies chest pain, Denies syncope, Denies rapid heart rate, Denies irregular heart rhythm, Denies palpitations, Denies dyspnea, Denies dyspnea on exertion and Denies slow heart rate Respiratory Respiratory: Denies chest congestion, Denies cough, Denies hemoptysis, Denies dyspnea, Denies dyspnea on exertion, Denies stridor and Denies wheezing Genitourinary Genitourinary: Denies hematuria, Denies difficulty urinating and Denies urinary frequency Musculoskeletal Musculoskeletal: Denies myalgias, Denies arthralgias, Denies limited range of motion and Denies neck pain Neurologic Neurologic: Denies abnormal speech, Reports behavioral changes, Reports confusion, Denies dizziness, Denies syncope, Denies headache(s), Denies loss of vision, Denies memory loss, Denies seizure-like activity, Denies paresthesias and Reports weakness Psychiatric Psychiatric: Reports behavioral changes, Reports change in appetite, Reports confusion, Denies difficulty concentrating, Denies auditory hallucinations, Denies memory loss, Denies mood swings and Denies suicidal ideation Endocrine Endocrine: Denies excessive sweating and Denies palpitations Hematologic/Lymphatic Hematologic/Lymphatic: Denies easy bleeding, Denies easy bruising and Denies lymphadenopathy Allergic/Immunologic Allergic/Immunologic: Denies urticaria, Denies itchy eyes, Denies lip swelling, Denies throat swelling, Denies tongue swelling and Denies wheezing Exam Vital Signs (past 8 hours): - 10/18/20 23:50 10/19/20 04:00 Temperature 97.7 F 97.6 F Pulse Rate 87 89 Respiratory Rate 16 15 Blood Pressure 101/55 L 95/50 L Pulse Oximetry 95 96 Oxygen Delivery Method Room Air Oxygen Flow Rate 0 Narrative Exam Narrative: Elderly male in no obvious distress lying in his hospital bed HEENT-normocephalic atraumatic Neck-no bruits Lungs-clear with good breath sounds Heart-regular rate and rhythm no murmur Abdomen-positive bowel tones soft nontender nondistended Extremities-no cyanosis clubbing or edema Neuro-moves all 4 extremities, oriented to self and place but did not recognize me or date, gait not tested Objective Labs Result Diagrams: 10/18/20 16:08 10/19/20 05:45 Labs: Laboratory Results - last 24 hr 10/18/20 10/18/20 10/18/20 16:08 16:08 18:30 WBC 7.8 RBC 3.32 L Hgb 11.0 L Hct 32.6 L MCV 98.0 MCH 33.1 MCHC 33.8 RDW 13.1 Plt Count 155 Neut % (Auto) 56.8 Lymph % (Auto) 30.0 [place] % (Auto) 9.5 Eos % (Auto) 3.2 Baso % (Auto) 0.5 Neut # (Auto) 4400 Lymph # (Auto) 2300 [place] # (Auto) 700 Eos # (Auto) 200 Baso # (Auto) 0 Sodium 129 L Potassium 3.9 Chloride 93 L Carbon Dioxide 30 BUN 20 Creatinine 1.33 H Estimated GFR 53.3 L BUN/Creatinine Ratio 15.0 Glucose 96 Calcium 11.4 H Total Bilirubin 0.8 AST 38 ALT 14 Alkaline Phosphatase 43 Total Protein 6.1 L Albumin 3.5 Globulin 2.6 Albumin/Globulin Ratio 1.3 U Opiates 300ng/mL cut Positive H Ur Oxycodone Screen Positive H Urine Methadone Screen Negative Ur Barbiturates Screen Negative U Tricyclic Antidepress Negative Ur Phencyclidine Scrn Negative Ur Amphetamines Screen Negative U Methamphetamines Scrn Negative Ur MDMA Scrn (Ecstasy) Negative U Benzodiazepines Scrn Negative Urine Cocaine Screen Negative U Marijuana (THC) Screen Negative SARS-CoV-2 (PCR) 10/18/20 10/19/20 18:30 05:45 WBC RBC Hgb Hct MCV MCH MCHC RDW Plt Count Neut % (Auto) Lymph % (Auto) [place] % (Auto) Eos % (Auto) Baso % (Auto) Neut # (Auto) Lymph # (Auto) [place] # (Auto) Eos # (Auto) Baso # (Auto) Sodium 129 L Potassium 3.7 Chloride 98 Carbon Dioxide 27 BUN 18 Creatinine 1.28 H Estimated GFR 55.7 L BUN/Creatinine Ratio 14.1 Glucose 86 Calcium 10.6 H Total Bilirubin AST ALT Alkaline Phosphatase Total Protein Albumin Globulin Albumin/Globulin Ratio U Opiates 300ng/mL cut Ur Oxycodone Screen Urine Methadone Screen Ur Barbiturates Screen U Tricyclic Antidepress Ur Phencyclidine Scrn Ur Amphetamines Screen U Methamphetamines Scrn Ur MDMA Scrn (Ecstasy) U Benzodiazepines Scrn Urine Cocaine Screen U Marijuana (THC) Screen SARS-CoV-2 (PCR) Negative Assessment & Plan Assessment & Plan narrative: 1. Altered mental status/metabolic encephalopathy-part of this certainly secondary to patient's use of methylphenidate which has been discontinued it will not be re-initiated. Part of this may also be due to his mild hyponatremia any does certainly show evidence of mild dehydration as well with a small degree of acute kidney injury. We will correct these electrolytes and rehydrate him However patient was declining almost immediately upon discharge from the hospital last time. No clear etiology at this time. Patient is on appropriate doses of 2 separate antidepressants. I only met patient twice prior to his illness in August and those meetings were several months prior. It seem to me there was some sort of behavioral health sort of issue ongoing at that time that this may be an exacerbation of. Unclear whether this was depression anxiety or whether there is some cognitive disorder as well underlying all of this. It may be helpful to trying get psychiatric evaluation during this hospitalization depending on patient's clinical course. That of course is easier said than done. Will also course obtain urinalysis be sure infections not an etiology here. Does not appear to be hypoglycemia or other issues around his diabetes and blood sugar control. He would benefit from physical and occupational therapy evaluations I believe as well. Patient had a negative head CT but I also think it is worth obtaining magnetic resonance imaging of his [employer] EDUCATION DIRECTOR to ensure there is no evidence of metastatic disease or other abnormality in his [employer]IC EDUCATION DIRECTOR to cause these mental status changes as well as this persistent lethargy and prominent GI set of symptoms 2. Bladder cancer-per most recent oncology note no active evidence active cancer at this time. Cystoscopy performed May was apparently normal in appearance with random biopsies also being normal. Patient receiving the Keytruda up until the 16 of August. This point other than checking urine for evidence of infection does not appear that that is malignancy is all likely culprit in the above (although MR imaging of MUSIC EDUCATION DIRECTOR still appropriate) 3. Diabetes-continue patient's usual medications monitor his numbers here 4. Acute kidney injury-as above will rehydrate and follow numbers along. Expect this to improve as it did last time 5. Hyponatremia-will hydrate with normal saline and monitor. Not clear what is causing the persistent hyponatremia other than very poor and limited oral intake. His duloxetine could be playing a role here but generally my experience when the SSRIs cause hyponatremia it is rather profound and that does not appear to be the case at this time. I am also very hesitant to discontinue an antidepressant since I think some sort of mental health issue is a very likely culprit for his overall failure to thrive. 6. Coronary artery disease-patient without evidence of active issue here. Thaddeus nue usual medications 7. GI-patient with prominent GI symptoms as noted in his HPI. Had normal lab work including LFTs upon admission. Had essentially normal abdominal CT back in August when he was here with very similar symptoms in presentation. It is now approximately 6 weeks since [address] last [address] scan I am going to go ahead and repeat that now looking for evidence of some progression of some disease that was not apparent that time that may further explain his active GI symptoms and or provide some insight into his overall process. However I believe it is unlikely that we will find any abnormality which in and of itself is useful. He has GI symptoms may be more related to diabetic gastro paresis than anything else, but I believe we need to rule out other issues. 8. VTE prophylaxis-Lovenox has been ordered and will be employed 9. Code status-patient's previous breast wishes for full code in the event of a sudden cardiac or respiratory arrest. Orders for full code have been placed for this hospitalization as well Overall patient's status is quite confusing a complicated without a clear etiology for all of his presenting symptoms. Would as above we will correct the obvious abnormalities including his electrolyte and renal dysfunction etcetera. Will hold his medication that is the likely culprit. He will likely be in the hospital greater than 48 hours to span 2 separate midnights. Time Spent With Patient Critical Care time: I spent a total of [] minutes of critical care time on this patient's care today; this time is exclusive of procedural time. Quality VTE Deep Vein Thrombosis/Pulmonary Embolism Present on Admission: No
--- NOTE | 2020-10-19 08:08 | DI.CT.S_ITS ---
PROCEDURE: CT ABDOMEN PELVIS W CON INDICATIONS: N/V/Abd Pain left side TECHNIQUE: After the administration of intravenous contrast, axial sections acquired from the lung bases to the pubic symphysis. Coronal and sagittal reformats were performed. For radiation dose reduction, the following was used: automated exposure control, adjustment of mA and/or kV according to patient size. COMPARISON: [facility], CT, CT CHEST ABD PEL W CON, 03/19/2020, 14:17. [facility], CT, CT ABDOMEN PELVIS W CON, 09/04/2020, 14:49. FINDINGS: Image quality: Excellent. Lung bases: Bibasilar scars and atelectasis. Small hiatal hernia. Heart: Heart size is normal. There is coronary artery calcification. No pericardial effusion. ABDOMEN: Liver: Unremarkable. Gallbladder: Unremarkable. Biliary ducts: Unremarkable. Pancreas: Unremarkable. Spleen: Unremarkable. Adrenal Glands: Unremarkable. Kidneys and Ureters: Kidneys are normal in size and symmetric in enhancement. There is a 3 mm nonobstructive stone in right kidney. No hydronephrosis. Stomach and Bowel: Stomach appears thickened although stomach is not fully distended. The small bowel loops and colon are normal in caliber. There is a large amount of stool in colon. Colonic diverticulosis. No diverticulitis the Peritoneum: No abnormal intraperitoneal fluid. No free air. Ventral Wall: No hernias. Abdominal Nodes: No retroperitoneal or mesenteric adenopathy by size criteria. Vessels: Aorta and inferior vena cava are normal in size. PELVIS: Pelvic Organs: Unremarkable. Bladder: Unremarkable. Pelvic Nodes: No enlarged lymph nodes. Miscellaneous: No hernias are seen. A calcified cutaneous nodule in the right buttock consistent with a injection granuloma. Bones: Mild scoliosis. Degenerative disc and facet disease in lumbar spine. IMPRESSION: 1. There is gastric wall thickening suggesting gastritis. The stomach, however, is not fully distended. Please correlate clinically. 2. Diverticulosis without diverticulitis. 3. A 3 mm nonobstructive stone in right kidney. 4 A large amount of stool in colon. Dictated by: Ainsley Mejia M.D. on 10/19/2020 at 12:39 Approved by: Ainsley Mejia M.D. on 10/19/2020 at 12:51
[2020-10-19] MEDS: MAGNESIUM OXIDE 400 MG TABLET PO ×2 (10:00→20:38)
[2020-10-19] MEDS: MULTIVITAMIN 1 TABLET 1 TAB PO (10:00)
[2020-10-19] MEDS: ENOXAPARIN 30 MG/0.3 ML SYRINGE SUBCUT (10:05)
[2020-10-19] MEDS: LEVOTHYROXINE 50 MCG TABLET PO (10:05)
[2020-10-19] MEDS: buPROPion SR 150 MG TAB PO ×2 (10:05→20:38)
[2020-10-19] MEDS: DULOXETINE 30 MG CAPSULE 60 MG PO (12:24)
[2020-10-19 12:39] LABS: TSH w/ Reflex to FT4 0.52 uIU/mL (0.47-4.68)
[2020-10-19 14:38] LABS: RBC Urine None Seen (0-5/HPF)
[2020-10-19 14:46] LABS: Bilirubin Urine UA NEGATIVE (NEGATIVE); Color Urine UA YELLOW; Glucose Urine UA NEGATIVE (Negative); Ketones Urine UA 1+ (NEGATIVE); Leukocyte Esterase Urine UA TRACE (NEGATIVE); Nitrite Urine UA NEGATIVE (Negative); Occult Blood Urine UA NEGATIVE (Negative); Protein Urine UA NEGATIVE (Negative); Urobilinogen Urine UA 0.2 E.U./dL (0.2)
[2020-10-19 15:05] LABS: Appearance Urine UA Slightly Cloudy
[2020-10-19 15:06] LABS: Amorphous Sediment Urine 1+; Bacteria Urine Occasional (0-1); Culture Indicated Urine Specimen Cultured; Mucus Urine 1+ (Negative); Squamous Epithelial Cell Urine 1-5 /HPF (0-5/HPF); WBC Urine 5-10/HPF (0-5/HPF)
[2020-10-19 15:08] LABS: Hyaline Casts Urine 5-10/LPF
[2020-10-19] MEDS: levoFLOXacin 250 MG TABLET 500 MG PO (16:15)
--- NOTE | 2020-10-19 16:29 | CM.IDA ---
Initial DCP Assessment Note Pt is a 70 yo male, resident of [place], arrives w/ new and increasing confusion and hallucinations Patient would benefit from PT/OT order and evals while admitted PCP: Jeffrey Hudson Payer: ELLEN/ALBERTO Akins Reviewed chart, Met w/patient and his Michaela at bedside, introduced role. Patient is clearly confused throughout this conversation, but talkative, and wanting to be included in assessment. 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 Lives w/spouse who states patient has become increasingly confused. Patient is functionally indp (mostly) but w/altered mental status, patient needs much observation and cues to remain safe in their home. Patient has two daughters, one 24 yo and one 45 yo that live out of state. Patient is current w/a HH RN through [facility] and spouse would like RN to continue her visits. Patient has no h/o SNF stay and spouse states she plans on taking patient home. Did not challenge this plan or review additional outpatient supports while patient present, planning efforts appear to agitate patient. Will plan to follow closely for any DC needs or concerns that might arise. Certainly patient would benefit from HH care. Will call [facility], may need new HH order and new F2F signed by YARI Michaud Discharge Planning/Care Management CM Discharge Assessment Start: 10/19/20 16:24 Freq: Status: Active Protocol: Document 10/19/20 16:24 PEDRO (Rec: 10/19/20 16:29 PERDO [id number]) Discharge Planning Assessment Assigned Pulmonary Function Technologist YARI Long DPOA/Assigned Designee Name Michaela Bautista, spouse Contact Information [phone] Advance Directives? Yes Advance Directives on File No History Provided By Patient,Family Member,Medical Record Prior Living Arrangements House Household Members spouse,family Type of transporation used prior to Relies on Others admit Independent with ADL's No Is patient alert and oriented? No Patient/Family Preference Home with Home Health Discharge Plan Home with Home Health Transportation Arrangement Family to provide transport. Referrals Initiated Home Health If patient plan is home with home health No : Has signed face to face form been completed?
--- NOTE | 2020-10-19 17:06 | DIET.CONS ---
Dietary Consultation Note Admission Date: 10/18/2020 19:46 Assessment: 70 y/o M c bladder cancer admitted for altered mental state. at bedside reports poor PO and significant weight loss secondary to cancer tx (loss of taste and smell). Reported GI upset, N/V/KRYSTAL. Per records, 16% weight loss over 4-5 months. reports he was 300# when diagnosed. Visible muscle loss in scooping of temporal area. Poor PO since admit 0-25%. Severe protein malnutrition and potential for refeeding risk. Does not like ensure or vanilla/chocolate shakes of any kind. Prefers fruit. H/o DM, but HgA1c of 5.8% and FBG within goal between 86-130 mg/dL. H/o hypoglycemia and no DM meds. Ht: 170.18 cm Wt: 85.8 kg BMI: 29.5 UBW: 136kg Wt hx: 102 kg (05/28/20) Last BM: 10/19/20 (10/19/20 06:55) MNA: 7 Compa Score: 18 Diet: 10/18/20 Breakfast General (Regular) Diet Diet Modifications: Percent of last meal consumed (last 48h) Percent Meal Consumed 25% 10/19/20 12:40 Percent Meal Consumed 0% 10/19/20 08:30 Labs: RBC 3.32 X10^6/uL (4.5-5.9) L 10/18/20 16:08 Hgb 11.0 g/dL (13.5-17.5) L 10/18/20 16:08 Hct 32.6 % (41-53) L 10/18/20 16:08 Creatinine 1.28 mg/dL (0.66-1.25) H 10/19/20 05:45 Nutrition Diagnosis: Severe PCM r/t inadequate intake aeb report and poor PO Interventions: Fruit protein smoothie made in the kitchen as a meal replacement when PO <50%. Discussed with , kitchen staff, and PROCESS CONTROLLER. Monitoring/Evaluations: PO, smoothie tolerance, weights, refeeding labs
[2020-10-19] MEDS: ATORVASTATIN 20 MG TABLET 40 MG PO (20:37)
[2020-10-19] MEDS: SENNOSIDES 8.6 MG TABLET 17.2 MG PO (20:38)
[2020-10-19] MEDS: SODIUM CHLORIDE 0.9% 1,000 ML 100 ML IV (23:33)
[2020-10-20] VITALS (7 sets, daily range): BP systolic 99–142; BP diastolic 54–76; PULSE 90–107; RESP 16–18; TEMP 36.6–37.2; O2SAT 95–99
[2020-10-20 05:32] LABS: BUN Creatinine Ratio 10.9 (6-22); Blood Urea Nitrogen 12 mg/dL (9-20); Calcium 10.1 mg/dL (8.4-10.2); Carbon Dioxide 25 mmol/L (22-32); Chloride 99 mmol/L (98-107); Estimated Glomerular Filt Rate > 60.0 mL/min (>60); Glucose 73 mg/dL (80-110); HEMOLYSIS < 15 (0-50); Potassium 3.6 mmol/L (3.4-5.1); Sodium 131 mmol/L (137-145)
[2020-10-20] MEDS: buPROPion SR 150 MG TAB PO ×2 (08:32→20:47)
[2020-10-20] MEDS: MAGNESIUM OXIDE 400 MG TABLET PO ×2 (08:32→20:47)
[2020-10-20] MEDS: polyethylene glycoL 3350 17 GM POWD.PACK PO (08:32)
[2020-10-20] MEDS: LEVOTHYROXINE 50 MCG TABLET PO (08:32)
[2020-10-20] MEDS: MULTIVITAMIN 1 TABLET 1 TAB PO (08:32)
--- NOTE | 2020-10-20 09:14 | P.PN_ITS ---
Subjective Subjective Date Patient Seen: 10/20/20 Time Patient Seen: 09:14 Interval history: Patient this morning is still somewhat altered. Is focused on getting his dental work fixed. Also focused on dealing with some issues around coverage at home. He consumed maybe 30% of his breakfast without any GI symptoms at this time anyway. Had a small bowel movement containing a small blood clot with very constipated like stool following that. Patient denies any abdominal pain Exam Vital Signs (past 8 hours): - 10/20/20 05:38 10/20/20 08:00 Temperature 98.5 F 98.0 F Pulse Rate 90 107 H Respiratory Rate 18 16 Blood Pressure 105/58 L 117/68 Pulse Oximetry 97 98 Oxygen Delivery Method Room Air Oxygen Flow Rate 0 Objective Labs Result Diagrams: 10/18/20 16:08 10/20/20 05:06 Labs: Laboratory Results - last 24 hr 10/19/20 10/19/20 10/20/20 05:45 14:36 05:06 Sodium 131 L Potassium 3.6 Chloride 99 Carbon Dioxide 25 BUN 12 Creatinine 1.10 Estimated GFR > 60.0 BUN/Creatinine Ratio 10.9 Glucose 73 L Calcium 10.1 TSH 0.52 Urine Color Yellow Urine Appearance Slightly cloudy Urine pH 5.0 Ur Specific [place] 1.020 Urine Protein Negative Urine Glucose (UA) Negative Urine Ketones 1+ H Urine Occult Blood Negative Urine Nitrate Negative Urine Bilirubin Negative Urine Urobilinogen 0.2 Ur Leukocyte Esterase Trace H Urine RBC None seen Urine WBC 5-10/hpf H Ur Squamous Epith Cells 1-5 /hpf Amorphous Sediment 1+ Urine Bacteria Occasional (0-1) Hyaline Casts 5-10/lpf Urine Mucus 1+ H Ur Culture Indicated? Specimen cultured [facility] Medical History Bladder cancer Chronic back pain CIS (carcinoma in situ of bladder) Controlled type 2 diabetes mellitus without complication Coronary artery disease Depression Easy bruisability Hearing loss History of primary bladder cancer HTN (hypertension) Mixed hyperlipidemia Myocardial infarction Peripheral neuropathy Pneumonia Sleep apnea with use of continuous positive airway pressure (CPAP) Thin skin Tinnitus Wears glasses Surgical History Anesthesia H/O cystoscopy History of surgery (04/04/19) Hx of arthroscopy of right knee Hx of heart artery stent Hx of shoulder surgery (~2013) Hx of tonsillectomy 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) Family History Sister Breast cancer Father History of heart disease COPD (chronic obstructive pulmonary disease) Mother Stroke Brother History of heart disease Social History household members: spouse and family Smoking Status: Never smoker alcohol intake: never substance use type: does not use Assessment & Plan Assessment & Plan narrative: 1. Altered mental status/metabolic encephalopathy-no clear etiology for this at this point. I continue to believe there is some longstanding underlying mental health issue that is exacerbated at the current time. Patient also maybe somewhat sleep deprived as per spouse is with him in the room this morning. Will focus on trying to increase sleep at night and I think the addition of something like Zyprexa might be helpful in getting him through this period. No evidence of stroke tumor mass effect etcetera. Continue with current anti depressants. Would benefit from mental health evaluation I believe but that is not exactly possible on holiday weekend unfortunately. 2. GI-will work on trying to eliminate constipation get bowels moving etcetera. Not overly concerned about blood most likely from hemorrhoidal issues combined with his Lovenox. Will hold his Lovenox for this purpose for now. CT scan times to done 6 weeks apart or so show no evidence of serious intra-abdominal process beyond the constipation. 3. Diabetes-adequate control for now. No change in overall management at this time 4. Hyponatremia-improved with sodium now 131. Continue with IV fluid, normal saline. Renal function is improved as well. Probably can decrease and or eliminate IV fluids tomorrow 5. Disposition-unclear when patient will be appropriate to return home. I am really hoping his encephalopathic features will begin to improve. Will likely go home with home health services 6. VTE prophylaxis-given the blood seen in stool this morning I am going to stop the Lovenox and continue with SCDs alone. Will re-examine this on a d ay-by-day basis 7. UTI-patient with UA demonstrating possible infection. Culture thus far is still pending. Continue with Levaquin given orally, picked in part because of patient's history of reactions to other antibiotics. Note: Greater than 30 minutes was spent evaluating the patient on the floor, including examining the patient, discussing clinical course with clinical and nursing staff, reviewing clinical course in the computer, preparing documentation and writing orders for continued management of care, discussing status with family as appropriate, reviewing plans for the next 24 hours with both patient/family and nursing staff as appropriate. Time Spent With Patient Critical Care time: I spent a total of [] minutes of critical care time on this patient's care today; this time is exclusive of procedural time. Quality VTE Deep Vein Thrombosis/Pulmonary Embolism Present on Admission: No
[2020-10-20] MEDS: SODIUM CHLORIDE 0.9% 1,000 ML 100 ML IV ×2 (10:16→20:46)
--- NOTE | 2020-10-20 11:07 | PT.IIE ---
Surgical History (Last Reviewed 10/19/20 @ 07:34 by Jeffrey Hudson MD) Anesthesia Medical History (Last Reviewed 10/19/20 @ 07:34 by Jeffrey Hudson MD) Bladder cancer Chronic back pain CIS (carcinoma in situ of bladder) Controlled type 2 diabetes mellitus without complication Coronary artery disease Depression Easy bruisability Hearing loss History of primary bladder cancer HTN (hypertension) Mixed hyperlipidemia Myocardial infarction Peripheral neuropathy Pneumonia Sleep apnea with use of continuous positive airway pressure (CPAP) Thin skin Tinnitus Wears glasses Physical Therapy Inpatient Evaluation/Re-Eval M1 PT/OT-IP Prior Functional Status Start: 10/20/20 13:30 Freq: NEEDED Status: Active Protocol: Document 10/20/20 11:07 AB (Rec: 10/20/20 13:45 AB [email or web address]) Medical Review Prior Functional Status Medical History Reviewed Yes Communication pt with confusion but able to follow directions Mobility and Gait spouse provided information: stated that pt is modified independent with all mobilities and ambulation without AD indoors. stated that pt seldom goes outside and if he has to, uses a SPC for outdoor mobility Social History Household Members spouse Living Arrangements House Number of Floors (Floors) One Floor Number of Stairs To Enter/Railing? 3 steps L rail + R wall Home Environment Standard Height Toilet,Tub/ Shower Home Equipment Four Wheel Walker,Straight Cane,Tub Transfer Bench,Hand Held Shower M2 PT-IP Current Condition Start: 10/20/20 13:30 Freq: NEEDED Status: Active Protocol: Document 10/20/20 11:07 AB (Rec: 10/20/20 13:45 AB [email or web address]) Physical Therapy Current Condition Current Condition Evaluation Date 10/20/20 Treatment Diagnosis altered mental status/ metabolic encephalopathy; difficulty in walking Onset Date 10/18/20 Precautions Other Precautions falls M3 PT-IP Subjective Start: 10/20/20 13:30 Freq: NEEDED Status: Active Protocol: Document 10/20/20 11:07 AB (Rec: 10/20/20 13:45 AB [email or web address]) Subjective Physical Therapy Visit Type Type Initial Evaluation Visit Start Time 11:07 Visit Stop Time 11:40 Total Visit Minutes 33 Number of DATABASES COMPUTER CONSULTANT Visits 0 Physical Therapy Visit Comments Patient Comments agreed to ambulate Therapy Pain Assessment Pain Present Pain Present Denied Pain M4 PT-IP Mobility and Gait Start: 10/20/20 13:30 Freq: NEEDED Status: Active Protocol: Document 10/20/20 11:07 AB (Rec: 10/20/20 13:45 AB [email or web address]) PT-Bed Mobility Assessment Sit to Supine Sit to Supine Standby Assistance PT-Transfer Assessment Sit to and From Stand Sit to and from Stand Contact Guard Assistance,1 Person Assistance,Use of Upper Extremities Equipment Transfer Assistive Device Gait Belt,Front Wheeled Walker Orthotic/Prosthetic Devices or Brace: No Comments Mobility Comments pt completed supine to sit SBA . able to sit on EOB SBA. completed sit to stand CGA and ambulated in room using FWW ~ 45 ft min A and cues. pt requires assist with maneuvering FWW and tends to run into things/wall. pt requested to go back to bed and completed sitt o supine SBA. positioned pt in bed. call light and table placed within reach. Gait Assessment Gait Gait Assistance Required: Minimum Assistance,1 Person Assist Distance (Feet) 45 Able to Maintain Weight Bearing Status Yes During Gait Assistive Devices Assistive Device Gait Belt,Front Wheeled Walker Orthotic/Prosthetic Devices or Brace: No Gait Deviations General Gait Pattern Decreased Stride Length, Decreased Feet Clearance Factors Limiting Gait Function Factors Limiting Gait Function Decreased Activity Tolerance, Decreased Strength,Difficulty Following Directions,Poor Balance,Poor Safety Awareness PT-Balance Assessment Sitting Balance and Reactions Static Sitting Balance Ability Good Dynamic Sitting Balance Ability Good Standing Balance and Reactions Static Standing Balance Ability Fair Dynamic Standing Balance Ability Fair Device Used FWW M5 PT-IP Objective Assessments Start: 10/20/20 13:30 Freq: NEEDED Status: Active Protocol: Document 10/20/20 11:07 AB (Rec: 10/20/20 13:45 AB [email or web address]) Orientation Orientation/Cognition Level of Alertness Confusional State Orientation Name,Place Language Function Ability Hard of Hearing Safety Awareness Decreased Safety Awareness Memory Description Short Term Impaired,Life Support Technician Impaired Gross Range of Motion Lower Extremity ROM Assessment Within Functional Limits Strength Lower Extremity Strength Hip 4-/5 Knee 4-/5 Muscle Tone Muscle Tone WNL Yes M6 PT-IP Treatment Start: 10/20/20 13:30 Freq: NEEDED Status: Active Protocol: Document 10/20/20 11:07 AB (Rec: 10/20/20 13:45 AB [email or web address]) Physical Therapy Treatment Education Education Provided Safety M7 PT-IP Assessment and Plan Start: 10/20/20 13:30 Freq: NEEDED Status: Active Protocol: Document 10/20/20 11:07 AB (Rec: 10/20/20 13:45 AB [email or web address]) PT Summary Assessment and Plan Potential Rehabilitation Potential Good Status of Condition at Evaluation Evolving Summary Impairments Pain,ROM,Strength,Balance, Coordination,Sensation,Tone, Cognition,Bed Mobility, Transfers,Gait,Activity Tolerance Assessment Summary pt requiring min A with ambulation using FWW. requires assist with maneuvering of FWW and cued for safety. pt with confusion and has decrease safety awareness affecting mobility independence. pt's spouse will assist pt at home. will conduct caregiver training when appropraite as well as stair climbing training prior to d/c. Goals Bed Mobility Goal Independent Transfer Goal Independent,Front Wheeled Walker,Four Wheeled Walker Gait Goal Independent,Front Wheel Walker ,Four Wheel Walker Gait Distance 200 Other Goals up/down 3 steps L rail/R wall support SBA Days to Meet Goals 5 Frequency of Treatment Frequency Of Treatment Once a Day Treatment Plan Physical Therapy Treatment Plan Bed Mobility Training,Transfer Training,Gait Training, Therapeutic Exercise,Balance Retraining,Discharge Planning, Hot or Cold Pack,Neuromuscular Re-ed,Coordination Retraining Precautions Other Precautions falls Recommendations To Nursing Amount of Assist Needed 1 Person Assist Discharge Recommendations PT Discharge Recommendations Home with 08/09 Assist Available,Home Health Equipment Needed for Home Before FWW if not safe with 4WW Discharge Transportation Needs at Discharge Private Vehicle
[2020-10-20] MEDS: DOCUSATE 100 MG CAPSULE 200 MG PO ×2 (12:18→20:47)
[2020-10-20] MEDS: DULOXETINE 30 MG CAPSULE 60 MG PO (12:19)
--- NOTE | 2020-10-20 13:49 | CM.DPNOTE ---
Addendum entered by YARI Jefferson 10/20/20 15:13: Correction: According to [facility], Patient does not need a new F2F signed, he will need a resumption of HH RN/PT/OT included in the DC Summary or in a free standing order, upon DC Original Note: DCP Note Reviewed Dr Hudson's prog note and PT note. Met w/patient and spouse to review DCP. Spouse Michaela prepared to take patient home tomorrow and requests Signature HH RN/PT/OT/LEVER TENDER/AIRCRAFT INSTRUMENT MECHANIC Placed call to Ailyn at [facility], they need a new order to start HH care Will place a F2F on patient's physical, red chart to be signed by physician, for expected DC of Thursday 9.5.21 if medically cleared JW
[2020-10-20] MEDS: levoFLOXacin 250 MG TABLET 500 MG PO (17:12)
[2020-10-20] MEDS: OXYCODONE/ACETAMINOPHEN 5/325 TABLET 1 TAB PO (19:02)
[2020-10-20] MEDS: ATORVASTATIN 20 MG TABLET 40 MG PO (20:47)
[2020-10-20] MEDS: OLANZapine 2.5 MG TABLET 5 MG PO (20:47)
[2020-10-20] MEDS: SENNOSIDES 8.6 MG TABLET 17.2 MG PO (20:47)
[2020-10-21] VITALS (8 sets, daily range): BP systolic 96–149; BP diastolic 53–72; PULSE 78–115; RESP 16–18; TEMP 36.6–37.6; O2SAT 93–99
[2020-10-21 05:39] LABS: Hematocrit 27.6 % (41-53); Hemoglobin 9.3 g/dL (13.5-17.5)
[2020-10-21 05:51] LABS: BUN Creatinine Ratio 7.4 (6-22); Blood Urea Nitrogen 7 mg/dL (9-20); Calcium 9.8 mg/dL (8.4-10.2); Carbon Dioxide 19 mmol/L (22-32); Chloride 103 mmol/L (98-107); Estimated Glomerular Filt Rate > 60.0 mL/min (>60); Glucose 68 mg/dL (80-110); HEMOLYSIS < 15 (0-50); Potassium 3.7 mmol/L (3.4-5.1); Sodium 133 mmol/L (137-145)
[2020-10-21] MEDS: buPROPion SR 150 MG TAB PO ×2 (08:22→21:11)
[2020-10-21] MEDS: MAGNESIUM OXIDE 400 MG TABLET PO ×2 (08:23→21:11)
[2020-10-21] MEDS: LEVOTHYROXINE 50 MCG TABLET PO (08:23)
[2020-10-21] MEDS: MULTIVITAMIN 1 TABLET 1 TAB PO (08:23)
[2020-10-21] MEDS: polyethylene glycoL 3350 17 GM POWD.PACK PO (08:23)
[2020-10-21] MEDS: DOCUSATE 100 MG CAPSULE 200 MG PO ×2 (08:23→21:11)
[2020-10-21] MEDS: OXYCODONE/ACETAMINOPHEN 5/325 TABLET 1 TAB PO (08:37)
--- NOTE | 2020-10-21 10:15 | PM.PN.1 ---
Subjective Subjective Date Patient Seen: 10/21/20 Time Patient Seen: 10:15 Exam Vital Signs (past 8 hours): - 10/21/20 05:00 10/21/20 07:20 10/21/20 07:46 Temperature 98.7 F 99.0 F Pulse Rate 114 H 114 H Respiratory Rate 16 16 Blood Pressure 122/70 111/63 Pulse Oximetry 96 96 96 10/21/20 08:02 Temperature Pulse Rate Respiratory Rate Blood Pressure Pulse Oximetry 95 Oxygen Delivery Method Room Air Oxygen Flow Rate 0 Narrative Exam Narrative: HEENT-unremarkable, normocephalic atraumatic Neck-no lymphadenopathy no bruits Lungs-clear anteriorly and posteriorly no wheezes no crackles good breath sounds Heart-regular rate and rhythm, no murmur, rub, or gallop. normal S1-S2 Abdomen-positive bowel tones, soft, nontender, nondistended, no hepatosplenomegaly, no masses palpable Neuro-normal to screening exam, gait not tested Extremities-no cyanosis clubbing or edema Objective Labs Result Diagrams: 10/21/20 05:30 10/21/20 05:30 Labs: Laboratory Results - last 24 hr 10/21/20 10/21/20 05:30 05:30 Hgb 9.3 L Hct 27.6 L Sodium 133 L Potassium 3.7 Chloride 103 Carbon Dioxide 19 L BUN 7 L Creatinine 0.94 Estimated GFR > 60.0 BUN/Creatinine Ratio 7.4 Glucose 68 L Calcium 9.8 [facility] Medical History Bladder cancer Chronic back pain CIS (carcinoma in situ of bladder) Controlled type 2 diabetes mellitus without complication Coronary artery disease Depression Easy bruisability Hearing loss History of primary bladder cancer HTN (hypertension) Mixed hyperlipidemia Myocardial infarction Peripheral neuropathy Pneumonia Sleep apnea with use of continuous positive airway pressure (CPAP) Thin skin Tinnitus Wears glasses Surgical History Anesthesia H/O cystoscopy History of surgery (04/04/19) Hx of arthroscopy of right knee Hx of heart artery stent Hx of shoulder surgery (~2013) Hx of tonsillectomy 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) Family History Sister Breast cancer Father History of heart disease COPD (chronic obstructive pulmonary disease) Mother Stroke Brother History of heart disease Social History household members: spouse Smoking Status: Never smoker alcohol intake: never substance use type: does not use Assessment & Plan Assessment & Plan narrative: 1. Metabolic encephalopathy/altered mental status-patient is somewhat worse this morning. Seems a bit more docile and struggles to hold conversation. Focus now on something to do with some sort of [facility] process. Is not talking about dental issues this morning like he was yesterday. Still very poor oral intake. Reports he slept well overnight. This point still not clear at all to me why he continues to have this disordered thinking or altered mental status or metabolic encephalopathy. Sodium is improved. Perhaps were seeing some decline today related to medication. His oxycodone was re-initiated yesterday and I gave him a dose of Zyprexa last night. I am going to discontinue both of these. Patient normally takes Ambien and will resume that at low-dose. Will switch to hydrocodone which patient's spouse reports he took before without difficulty did not seem to be as effective for pain management but he is not having as much pain now. His pain is kind of nebulous as well and I am wondering about his actual need for ongoing narcotic pain medication, but will switch to 5 mg hydrocodone as needed. I doubt this is the side effects or an issue related to his duloxetine or is bupropion but those would be other thoughts about changing discontinuing altering those doses as well 2. GI/nutrition/hydration- continues to have very poor appetite more than likely related to whatever is causing issue 1. Above. Will try him cautiously on some Marinol see if we can stimulate a bit appetite. I am concerned this could further alter his mental status but I am not sure I have any better more effective choice. I have discontinued IV fluids for now. Will continue to monitor his electrolytes and renal function as well as his intake and output I believe he does have severe protein calorie malnutrition based on reported weight loss of approximately 16% over 4 or 5 months. There is some evidence of muscle loss. Continue to try and stimulate appetite as above and offer nutritious foods. This may well also be contributing to issues above and certainly contributed to his hyponatremia and renal dysfunction/acute kidney injury/dehydration. He has had some increased stool output will continue to work towards improving this as well but thus far has not made a dramatic difference on his overall appetite and or GI symptoms 3. Question GI bleed-no further evidence of blood or bleeding. Hemoglobin hematocrit slightly down today the patient has been rehydrated. Continue to monitor his numbers by repeating labs tomorrow and remain off Lovenox for now 4. Diabetes-patient with slightly low blood sugar if anything patient not currently taking glucose lowering medications. Certainly if at all related to anything related to poor p.o. intake. 5. UTI-continue Levaquin. Continues to be asymptomatic and it seems clear to me at this point, that acute cystitis is unlikely to be a source of his metabolic encephalopathy. Note: Greater than 30 minutes was spent evaluating the patient on the floor, including examining the patient, discussing clinical course with clinical and nursing staff, reviewing clinical course in the computer, preparing documentation and writing orders for continued management of care, discussing status with family as appropriate, reviewing plans for the next 24 hours with both patient/family and nursing staff as appropriate. Time Spent With Patient Critical Care time: I spent a total of [] minutes of critical care time on this patient's care today; this time is exclusive of procedural time. Quality VTE Deep Vein Thrombosis/Pulmonary Embolism Present on Admission: No
[2020-10-21] MEDS: DULOXETINE 30 MG CAPSULE 60 MG PO (11:41)
--- NOTE | 2020-10-21 14:12 | PC.NURSE ---
For over 30 minutes Patient was becoming more and more agitated and angry. He is becoming more hostile about his continued stay here. He states that he feels like he is being drugged. His coordination getting out of bed and using the FWW to the bathroom is still slow and needs little assistance with direction. I needed assistance from my RN because of patient's hostile and threatening behavior toward me and his while trying to get into the chair, which is what he wanted to do. Then he changed his mind and wanted to leave the hospital. He believes that his Dr. and his are keeping him here against his will. After he sat down for a few minutes, he wanted to get up to use the bathroom. Which we did, after which I got him back to the chair, with warm blankets and fresh ice water. I did put a chair alarm on him incase he tries to get back up. At the time, his is still in the room with him. I did ask his if this behavior has happened before, she did say Yes. While he was in the ICU here. He also states that he has gone along with what has been going on and now, no longer wants too.
--- NOTE | 2020-10-21 15:20 | PT-IP ANOTE ---
Per RN, pt presenting with increased confusion and more uncooperative with care. RN and PT in agreement that pt not appropriate for PT intervention at this time. Will follow up Thursday.
--- NOTE | 2020-10-21 15:38 | PC.NURSE ---
Shift note: pt oriented to self/place/month and year but disoriented to events that have taken place during hospital stay, stating that he's here because of his surgery. Medicated for pain this morning for c/o shoulder and back pain, rated 6 on pain scale 1/10. Medicated with Oxycodone. Pt reports it made it tolerable but struggled to provide a number on the pain scale during his pain reassessment post medication. Continues to struggle with eating, not eating much on his tray. Initiated oral Marinol per Dr Hudson orders, prior to lunch. Pt became increasingly uncooperative this afternoon. Unwilling to take his oral antibiotic despite explaining to patient that it is important that he take it. Michaela is at bedside also talking to patient about taking his medication. Latosha LANTIGUA on eves was notified about pt refusal of antibiotic and will attempt later on. CBG this morning was 66 so 8 oz of cranberry juice given and blood sugar up to 122. CBG at lunchtime was 94.
[2020-10-21] MEDS: SENNOSIDES 8.6 MG TABLET 17.2 MG PO (21:11)
[2020-10-21] MEDS: ATORVASTATIN 20 MG TABLET 40 MG PO (21:11)
[2020-10-22] VITALS: O2SAT 94
[2020-10-22 05:00] VITALS: BP 130/64; PULSE 110; RESP 18; TEMP 37.5; O2SAT 96
[2020-10-22] MEDS: LEVOTHYROXINE 50 MCG TABLET PO (05:51)
[2020-10-22] MEDS: SODIUM CHLORIDE 0.9% FLUSH 10 ML IV ×2 (05:51→08:59)
[2020-10-22 06:16] LABS: Hematocrit 28.4 % (41-53); Hemoglobin 9.7 g/dL (13.5-17.5)
[2020-10-22 06:20] LABS: BUN Creatinine Ratio 7.2 (6-22); Blood Urea Nitrogen 6 mg/dL (9-20); Calcium 10.4 mg/dL (8.4-10.2); Carbon Dioxide 22 mmol/L (22-32); Chloride 103 mmol/L (98-107); Estimated Glomerular Filt Rate > 60.0 mL/min (>60); Glucose 83 mg/dL (80-110); HEMOLYSIS < 15 (0-50); Potassium 3.7 mmol/L (3.4-5.1); Sodium 135 mmol/L (137-145)
[2020-10-22 07:00] VITALS: O2SAT 94
[2020-10-22 08:42] VITALS: BP 113/76; PULSE 105; RESP 17; TEMP 36.7; O2SAT 97
[2020-10-22] MEDS: buPROPion SR 150 MG TAB PO (08:54)
[2020-10-22] MEDS: MAGNESIUM OXIDE 400 MG TABLET PO (08:55)
[2020-10-22] MEDS: DOCUSATE 100 MG CAPSULE 200 MG PO (08:55)
[2020-10-22] MEDS: MULTIVITAMIN 1 TABLET 1 TAB PO (08:55)
[2020-10-22] MEDS: polyethylene glycoL 3350 17 GM POWD.PACK PO (08:55)
--- NOTE | 2020-10-22 09:49 | PM.DS.1 ---
History of Present Illness History of Present Illness Date Patient Seen: 10/22/20 Time Patient Seen: 09:49 Chief complaint: New Med/hallucinating Narrative: 70-year-old male who has been struggling with bladder cancer admitted for altered mental status hallucinations etcetera Patient hospitalized [facility] between September 10 and September 13 because of altered mental status thought to be secondary to hyponatremia and relative dehydration. That was felt to be secondary to an abnormal reaction to Keytruda which is being used or was being used to treat his bladder cancer. With hydration and correction of his electrolyte abnormalities patient rapidly returned to near baseline and was very very anxious to return home. Since return home at that time at the end of August patient has struggled to eat or drink, he finds that nothing tastes good and has no appetite. Also had some persistent nausea and occasional emesis He continued to have very limited oral intake and spent much of the day in bed. In effort to improve what I felt was significant depression despite the fact patient is already on duloxetine and bupropion low-dose methylphenidate was added. With this patient seem to actually more acutely get worse with increased disorientation hallucinations and further lack of oral intake He was directed to the [facility] Emergency Department on day of admission. Mild hyponatremia, as well as slight bump in patients creatinine were noted and he was admitted for further evaluation Patient's white blood cell count chest x-ray and head CT were essentially unremarkable in the ER. Obvious evidence of an infectious etiology, although urinalysis was not performed patient apparently not complaining of any urinary tract symptoms For me this morning patient does not recognize me but remembers some details as above. He does seem to be altered in his mental status and much of the above information is obtained from ER notes as well as his chart and my personal recollection of the events over the last several weeks. Discharge Providers Provider Date of admission: 10/18/20 19:46 Discharge Date: 10/22/20 Primary care physician: Jefrfey Hudson MD Consults: 10/18/20 20:21 Consult to Dietitian, Adult Routine Comment: Reason For Exam: decreased appetite 10/20/20 08:58 Consult to Discharge Planning Routine Comment: Consult to Physical Therapy Evaluate & Treat Comment: Physician Instructions: Evaluate and Treat Discharge provider: Jeffrey Hudson MD Summary Hospital Course Discharge Diagnosis: 1. Hyponatremia, corrected 2. Metabolic encephalopathy, improved 3. 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 Diabetes type 2 5. Acute kidney injury, resolved 6. UTI 7. Depression 8. Possible cognitive impairment 9. Peripheral neuropathy 10. Adverse reaction to medication 11. Constipation 12. Severe protein calorie malnutrition 13. Chronic anemia of uncertain etiology Hospital Course: Patient was admitted because of his altered mental status which was felt at least in part be due to the methylphenidate that have been prescribed as an outpatient. He also was hyponatremic with evidence of mild dehydration and acute kidney injury. Electrolyte abnormalities were corrected with IV fluids. The methylphenidate was of course discontinued. Patient continued to show evidence of altered mental status/cognitive disorder/delirium/metabolic encephalopathy. This seem to wax and wane. Medications were adjusted including discontinuation of his oxycodone in favor of hydrocodone. He was tried on Zyprexa but this seem to actually make him bit more disordered in his thinking rather than help things although he did only receive 1 dose. Patient did have MRI of the brain performed to ensure no evidence of complication related to his neoplasm was present and really no abnormalities were noted the could explain his altered mental status/delirium/encephalopathy Patient continued having very poor oral intake. This did not improve despite trying to improve his GI status by focusing on helping him empty his bowels. He was significantly constipated on multiple imaging studies. There is no evidence of any abnormality whatsoever the could explain his persistent nausea and or vomiting as well as lack of appetite. He was somewhat constipated which is why there was focus on improving this. This was improved but did not seem to make much of a difference regarding his oral intake. Marinol was initiated although he only received a couple of doses prior to discharge and will continue follow this as an outpatient. Patient clearly has significant malnutrition, due to his very poor oral intake, ongoing for reasons that are not at all clear at this point Patient was also found to have a UTI, and has grown Staph haemolyticus on culture. He was started on oral Levaquin in this will be continued upon discharge. Patient was not really felt to have the infection as a source of his altered mental status/encephalopathy but certainly is possible which is why this was aggressively treated. Patient's altered mental status continues to be without clear explanation. I have come to believe there is an element of an underlying cognitive disorder present that manifests when there any sort of metabolic stress on the patient whatsoever. I do not really believe that the hyponatremia or the dehydration have played a big role in this. Maybe somewhat exacerbated by certain medications such as the narcotics and or even the Ambien he uses for sleep at night. Would like to try and minimize medication and we did that during the early part of his hospitalization by withholding Ambien and narcotics but he complained of various orthopedic type pains and holding medication did not seem to make much difference. We did switch over to hydrocodone upon discharge to see if that different medication would make a difference in this regard. Patient does not appear to have a complication of his bladder cancer ongoing at this time. Last cystoscopy failed to reveal evidence of abnormality on exam. He last received a dose of Keytruda on August 16. Patient reportedly is not amenable to any further treatment of his bladder cancer but again there has been no evidence of any persistent disease at this point. Imaging of both his brain and his abdomen pelvis have been performed more than once in some cases and again no clear evidence of issue with that. Defer further management of this particular issue to his oncologist but I am not convinced that is a direct contributor to this presentation hospitalization. Patient's diabetes was adequately controlled in part because of his very poor oral intake and no active issue with that at this time. Patient also had 1 bloody stool as we initiated attempts to trying clear his constipation. At that time he was on Lovenox. There is no further evidence of ongoing GI bleeding after Lovenox was discontinued. We were able to stimulate his bowels any did have further normal bowel movements. His hemoglobin hematocrit remained stable although he remains anemic. Do not believe he needs evaluation for GI bleeding at this time given the above clinical pattern and believe the blood seen was likely related to hemorrhoids in combination with the Lovenox. 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 Patient's antidepressants were continued as I continue to believe maybe a mental health issue ongoing here (which is why the methylphenidate was initiated) but I have come to believe there is also a cognitive issue in addition to that. Unfortunately we do not have the luxury of having mental health evaluation and providers readily available at this time and therefore could not obtain input regarding this at this time. Patient continues to become more more agitated the longer he is in the hospital and once again as he did with his last hospitalization is very very anxious and desiring to go home. At this point he has corrected his electrolyte and renal abnormalities. There is no evidence of any serious disease ongoing acutely. His poor oral intake and malnutrition continues to worry me but at this time we are going to focus on manipulating medications and looking for improvement which is going to be something this relatively slow and will take some time to manifest. Therefore I think overall given the correction in the obvious abnormalities such as hyponatremia and acute kidney injury and the overall improvement as mild does not maybe he is stable for discharge and upon his and his spouse's request I am okay discharging him home today with close outpatient follow-up Status at Discharge Cognitive/behavioral status at discharge: at baseline, confused Functional status at discharge: independent ambulation Overall status at discharge: patient is progressing back to baseline Time Spent with Patient Time spent: Greater than 30 minutes Exam Vital Signs (past 8 hours): - 10/22/20 05:00 10/22/20 07:00 10/22/20 08:42 Temperature 99.5 F 98.1 F Pulse Rate 110 H 105 H Respiratory Rate 18 17 Blood Pressure 130/64 113/76 Pulse Oximetry 96 94 97 Oxygen Delivery Method Room Air Oxygen Flow Rate 0 Objective Labs Result Diagrams: 10/22/20 05:45 10/22/20 05:45 Labs: Laboratory Results - last 24 hr 10/22/20 10/22/20 05:45 05:45 Hgb 9.7 L Hct 28.4 L Sodium 135 L Potassium 3.7 Chloride 103 Carbon Dioxide 22 BUN 6 L Creatinine 0.83 Estimated GFR > 60.0 BUN/Creatinine Ratio 7.2 Glucose 83 Calcium 10.4 H [facility] Medical History Bladder cancer Chronic back pain CIS (carcinoma in situ of bladder) Controlled type 2 diabetes mellitus without complication Coronary artery disease Depression Easy bruisability Hearing loss History of primary bladder cancer HTN (hypertension) Mixed hyperlipidemia Myocardial infarction Peripheral neuropathy Pneumonia Sleep apnea with use of continuous positive airway pressure (CPAP) Thin skin Tinnitus Wears glasses Surgical History Anesthesia H/O cystoscopy History of surgery (04/04/19) Hx of arthroscopy of right knee Hx of heart artery stent Hx of shoulder surgery (~2013) Hx of tonsillectomy 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) Family History Sister Breast cancer Father History of heart disease COPD (chronic obstructive pulmonary disease) Mother Stroke Brother History of heart disease Social History household members: spouse Smoking Status: Never smoker alcohol intake: never substance use type: does not use Discharge Plan Discharge Plan Patient Disposition: Home Health Service Transfer to: [facility] Provider Discharge Comment: resume home health RN/PT/OT Discharge orders & Medications Prescriptions: New polyethylene glycol 3350 17 gram Powder In Packet 17 g PO DAILY Qty: 30 RF: 8 hydrocodone-acetaminophen 5-325 mg Tablet 1 tab PO Q4HR PRN (Reason: Pain, Moderate (4-6)) Qty: 60 RF: 0 levofloxacin 250 mg Tablet 500 mg PO Q24H Qty: 5 RF: 0 dronabinol 2.5 mg Capsule 2.5 mg PO TID Qty: 90 RF: 0 sennosides [senna] 8.6 mg Tablet 8.6 mg PO BEDTIME Qty: 30 RF: 3 Continued aspirin 81 MG tablet,delayed release (DR/EC) 81 mg PO QDAY Qty: 0 RF: 0 multivitamin [Multiple Vitamins] 1 EACH tablet 1 tab PO QDAY Qty: 0 RF: 0 atorvastatin 40 mg tablet 40 mg PO HS Qty: 30 RF: 6 bupropion HCl 150 mg tablet sustained-release 12 hr 150 mg PO BID Qty: 180 RF: 3 levothyroxine 50 mcg tablet 50 mcg PO DAILY Qty: 90 RF: 3 ondansetron 4 mg tablet,disintegrating 4 mg PO Q6HR PRN (Reason: nausea and vomiting) Qty: 24 RF: 1 metoprolol succinate 25 mg tablet extended release 24 hr 25 mg PO DAILY Qty: 30 RF: 3 duloxetine 60 mg capsule,delayed release(DR/EC) 60 mg PO QNOON Qty: 90 RF: 3 Changed magnesium oxide 400 mg (241.3 mg magnesium) Tablet 400 mg PO DAILY Qty: 60 RF: 3 zolpidem [Ambien] 10 mg tablet 5 mg PO HS PRN (Reason: insomnia) Qty: 30 RF: 2 Discontinued methylphenidate HCl 5 mg tablet 5 mg PO BID Qty: 60 RF: 0 oxycodone-acetaminophen 10-325 mg Tablet 1 tab PO Q4-6H PRN (Reason: Bladder cancer) Qty: 120 RF: 0 Follow up/Referrals: Jeffrey Hudson MD [Primary Care Provider] - 1 Week Diet/Activity/Treatments Diet: Diet as Tolerated and Carb-consistent/Diabetic Discharge Data Primary Care Provider: Jeffrey Hudson Quality VTE Deep Vein Thrombosis/Pulmonary Embolism Present on Admission: No
--- NOTE | 2020-10-22 10:34 | PT.IPTN ---
Current Diagnoses Altered mental status, unspecified (10/18/20) Physical Therapy Treatment Note M2 PT-IP Current Condition Start: 10/20/20 13:30 Freq: NEEDED Status: Active Protocol: Document 10/20/20 11:07 AB (Rec: 10/20/20 13:45 AB [id number]) Physical Therapy Current Condition Current Condition Evaluation Date 10/20/20 Treatment Diagnosis altered mental status/ metabolic encephalopathy; difficulty in walking Onset Date 10/18/20 Precautions Other Precautions falls M3 PT-IP Subjective Start: 10/20/20 13:30 Freq: NEEDED Status: Active Protocol: Document 10/22/20 08:46 MB (Rec: 10/22/20 10:34 MB [id number]) Subjective Physical Therapy Visit Type Type Treatment Note Visit Start Time 08:46 Visit Stop Time 09:10 Total Visit Minutes 24 Number of TRAFFIC OPERATIONS MANAGER Visits 0 Physical Therapy Visit Comments Patient Comments Pt agreeable to PT. Makes confused conversation about politics, stones, salvation. is nearby. Pt cannot rate pain when asked and states that his shoulders and back bother him. Patient Goals 's goal is to take pt back home and to continue with [facility]. M4 PT-IP Mobility and Gait Start: 10/20/20 13:30 Freq: NEEDED Status: Active Protocol: Document 10/22/20 08:46 MB (Rec: 10/22/20 10:34 MB [id number]) PT-Bed Mobility Assessment Rolling Type of Rolling Roll to Left Supine to Sit Supine to Sit Contact Guard Assistance Scooting Scooting to Edge of Bed Standby Assistance PT-Transfer Assessment Sit to and From Stand Sit to and from Stand Contact Guard Assistance,1 Person Assistance,Use of Upper Extremities Equipment Transfer Assistive Device Gait Belt,Front Wheeled Walker Orthotic/Prosthetic Devices or Brace: No Comments Mobility Comments Cues and reminder cues for staying on task to roll to the left and scoot OOB with legs to the left. Pt reaches for PT 's hand and PT encourages him to push up himself and he is able to do this. Sit to stand with cues to push up from the bed and reach back for the chair with sitting after gait. RW is transfer device for standing. PT has decreased insight and some impulsivity, cognitive challenges which make mobility, transfers and gait unsafe. Gait Assessment Gait Gait Assistance Required: Contact Guard Assist,1 Person Assist Distance (Feet) 75 Assistive Devices Assistive Device Gait Belt,Front Wheeled Walker Orthotic/Prosthetic Devices or Brace: No Gait Deviations General Gait Pattern Decreased Stride Length, Decreased Feet Clearance, Flexed Trunk Factors Limiting Gait Function Factors Limiting Gait Function Decreased Activity Tolerance, Decreased Strength,Difficulty Following Directions,Limited Range of Motion,Pain,Poor Balance,Poor Safety Awareness Comments Gait Comments Pt gait trains 75'x2 with RW from the room to the steps and back. Gait is slow and he occ WB through his toes. He tends to push the walker far out in front of him. For stairs: Pt requires cues for hand placement, to reach for rails, take steps, perform stair training 3 step ascend and descend with two feet per step. Cues for safety and gait belt support for balance. Stair Climbing Assessment Evaluation Level of Assist On Stairs Minimal Assistance Devices Stair Climbing Assistive Devices Left Railing,Right Railing Technique/Endurance Stair Climbing Direction Ascend and Descend Stair Climbing Technique Step to Step Number of Steps Climbed 3 Stair Climbing Set # Repetitions (reps) 1 Comments Stair Climbing Comments See comments under gait. PT-Balance Assessment Sitting Balance and Reactions Static Sitting Balance Ability Good Dynamic Sitting Balance Ability Fair Standing Balance and Reactions Static Standing Balance Ability Fair Dynamic Standing Balance Ability Fair Device Used RW M5 PT-IP Objective Assessments Start: 10/20/20 13:30 Freq: NEEDED Status: Active Protocol: Document 10/20/20 11:07 AB (Rec: 10/20/20 13:45 AB [id number]) Orientation Orientation/Cognition Level of Alertness Confusional State Orientation Name,Place Language Function Ability Hard of Hearing Safety Awareness Decreased Safety Awareness Memory Description Short Term Impaired,[place] Impaired Gross Range of Motion Lower Extremity ROM Assessment Within Functional Limits Strength Lower Extremity Strength Hip 4-/5 Knee 4-/5 Muscle Tone Muscle Tone WNL Yes M6 PT-IP Treatment Start: 10/20/20 13:30 Freq: NEEDED Status: Active Protocol: Document 10/20/20 11:07 AB (Rec: 10/20/20 13:45 AB [id number]) Physical Therapy Treatment Education Education Provided Safety M7 PT-IP Assessment and Plan Start: 10/20/20 13:30 Freq: NEEDED Status: Active Protocol: Document 10/22/20 08:46 MB (Rec: 10/22/20 10:34 MB [id number]) PT Summary Assessment and Plan Potential Rehabilitation Potential Good Status of Condition at Evaluation Evolving Summary Impairments Pain,ROM,Strength,Balance, Coordination,Sensation,Tone, Cognition,Bed Mobility, Transfers,Gait,Activity Tolerance Assessment Summary Pt requires less assist for gait training today and is able to asend and descend 3 steps with rails and min A. He con't to have cognitive barrier to safety and mobility . His would like to take him home with HH assist. Goals Bed Mobility Goal Independent Transfer Goal Independent,Front Wheeled Walker,Four Wheeled Walker Gait Goal Independent,Front Wheel Walker ,Four Wheel Walker Gait Distance 200 Other Goals up/down 3 steps L rail/R wall support SBA Days to Meet Goals 5 Frequency of Treatment Frequency Of Treatment Once a Day Treatment Plan Physical Therapy Treatment Plan Bed Mobility Training,Transfer Training,Gait Training, Therapeutic Exercise,Balance Retraining,Discharge Planning, Hot or Cold Pack,Neuromuscular Re-ed,Coordination Retraining Other Recommendations and Next Treatment Try gait with 4WRW Focus Recommendations To Nursing Amount of Assist Needed 1 Person Assist Discharge Recommendations PT Discharge Recommendations Home Health Other Discharge Recommendations 24 hour assist at d/c, pt's cognition makes him at increased risk for falls Transportation Needs at Discharge Private Vehicle
[2020-10-22] MEDS: DULOXETINE 30 MG CAPSULE 60 MG PO (11:15)
--- NOTE | 2020-10-22 11:53 | PC.NURSE ---
Patient and given discharge instructions regarding diet, medications, f/u appointments and s/s of worsening condition. verbalized understanding and denied questions. Patient's port de-accessed. Patient tolerated. Patient dressed and discharged via wheelchair.
--- NOTE | 2020-10-22 14:52 | CM.DPC ---
DCP/continued: Reviewed chart. Patient with order to d/c home with resume HH today. ASSISTED LIVING ASSISTANT attempted to meet with patient to confirm plan but he had already left. Obtained order for HH and left vm with [facility]. Faxed draft of d/c summary, order, and demographic sheet to [facility]. P: Home today with home health resumed through [facility]. SHAUNA
== END 2020-10-22 11:38 | disposition home health service (06) | DRG 70 ==
LOC: ED 19:27 → AC 19:47
PROVIDERS: Emergency Medicine; Admitting Provider Internal Medicine; Emergency Provider Emergency Medicine; PCP Internal Medicine; Referring Provider Emergency Medicine; Visit Provider Internal Medicine
DX: G93.41 Metabolic encephalopathy (principal); E43 Unspecified severe protein-calorie malnutrition; E87.1 Hypo-osmolality and hyponatremia; N17.9 Acute kidney failure, unspecified; N39.0 Urinary tract infection, site not specified; K92.1 Melena; G92 Toxic encephalopathy; T43.635A Adverse effect of methylphenidate, initial encounter; K59.00 Constipation, unspecified; I25.10 Atherosclerotic heart disease of native coronary artery without angina pectoris; F32.9 Major depressive disorder, single episode, unspecified; E11.42 Type 2 diabetes mellitus with diabetic polyneuropathy; D09.0 Carcinoma in situ of bladder; E78.2 Mixed hyperlipidemia; I10 Essential (primary) hypertension; D64.9 Anemia, unspecified; Z68.29 Body mass index [BMI] 29.0-29.9, adult; Z20.822 Contact with and (suspected) exposure to COVID-19
CPT/HCPCS: 36415; 36591; 70450; 70548; 70553; 71045; 74177; 80048; 80053; 80305; 81001; 81003; 82962; 84443; 85014; 85018; 85025; 87077; 87086; 87186; 87635; 93005; 94760; 96361; 96374; 97116; 97162; 97530; 99223; 99233; 99238; 99284; 99285; C9803; J1642; J1650; J1815; J2405; Q9967

== ENCOUNTER 2020-11-15 16:59 | Emergency (ER) | payer MEDICARE, BC, SELFPAY ==
[2020-10-18 19:48] VITALS: BMI 29.5
[2020-11-15] VITALS (17 sets, daily range): BP systolic 98–142; BP diastolic 54–69; PULSE 79–91; RESP 13–23; TEMP 36.3; O2SAT 2–100
--- NOTE | 2020-11-15 17:26 | DI.RAD.S_ITS ---
PROCEDURE: XR CHEST 1V INDICATIONS: AMS TECHNIQUE: One view of the chest was acquired. COMPARISON: [facility], CR, XR CHEST 1V, 10/18/2020, 16:39. FINDINGS: Surgical changes and devices: Left chest port with the tip projecting in the upper SVC. Lungs and pleura: Scattered subsegmental atelectasis and/or scarring. No focal consolidation. No pleural effusion or pneumothorax. Low lung volumes Mediastinum: Mediastinal contours appear normal. Heart size is normal. Bones and chest wall: No suspicious bony lesions. Overlying soft tissues appear unremarkable. IMPRESSION: Scattered subsegmental atelectasis and/or scarring. No focal consolidation. Dictated by: Xavi Mcdaniel M.D. on 11/15/2020 at 17:55 Approved by: Xavi Mcdaniel M.D. on 11/15/2020 at 17:56
--- NOTE | 2020-11-15 17:26 | DI.CT.S_ITS ---
PROCEDURE: CT HEAD/BRAIN WO CON INDICATIONS: altered mental status TECHNIQUE: Noncontrast 4.5 mm thick angled axial sections acquired from the foramen magnum to the vertex, with coronal and sagittal reformats. For radiation dose reduction, the following was used: automated exposure control, adjustment of mA and/or kV according to patient size. COMPARISON: [facility], CT, CT HEAD/BRAIN WO CON, 10/18/2020, 18:13. FINDINGS: Image quality: Excellent. CSF spaces: Basal cisterns are patent. No extra-axial fluid collections. The ventricles are symmetric in size and shape. Brain: No intracranial bleeds or masses. There is cerebral volume loss for age, with resultant ventricular and sulcal prominence. There are periventricular and deep white matter chronic small vessel ischemic changes. There is intracranial internal carotid artery atherosclerosis. Skull and face: Calvarium and visualized facial bones appear intact, without suspicious lesions. Sinuses: Complete opacification of the right frontal sinus , unchanged. IMPRESSION: No acute intracranial process. Dictated by: Xavi Mcdaniel M.D. on 11/15/2020 at 17:52 Approved by: Xavi Mcdaniel M.D. on 11/15/2020 at 17:55
[2020-11-15 18:13] LABS: Add Manual Diff / Slide Review NO; Basophils Absolute Auto 0 /uL (0-100); Basophils Percent Auto 0.6 % (0-2); Eosinophils Absolute Auto 400 /uL (0-450); Eosinophils Percent Auto 5.5 % (2-4); Hematocrit 27.9 % (41-53); Hemoglobin 9.5 g/dL (13.5-17.5); Lymphocytes Absolute Auto 2000 /uL (1100-4500); Lymphocytes Percent Auto 30.3 % (25-40); Mean Corpuscular HGB Conc 34.1 % (30-36); Mean Corpuscular Volume 96.9 fL (80-100); Monocytes Absolute Auto 600 /uL (0-900); Monocytes Percent Auto 9.3 % (3-14); Neutrophils Absolute Auto 3600 /uL (1500-7000); Neutrophils Percent Auto 54.3 % (50-75); Platelet Count 109 X10^3/uL (150-400); Red Blood Cell Count 2.88 X10^6/uL (4.5-5.9); Red Cell Distribution Width 13.6 % (11.6-14.8); White Blood Cell Count 6.6 X10^3/uL (4.5-11.0)
[2020-11-15 18:19] LABS: INR 1.2 (0.9-1.3); Prothrombin Time 14.1 SECONDS (10.1-12.7)
[2020-11-15 18:25] LABS: Alanine Aminotransferase 13 IU/L (<50); Albumin 3.2 g/dL (3.5-5.0); Albumin Globulin Ratio 1.4 (1.0-2.8); Alkaline Phosphatase 38 U/L (38-126); Aspartate Aminotransferase 34 IU/L (17-59); Bilirubin Total 0.5 mg/dL (0.2-1.3); Blood Urea Nitrogen 22 mg/dL (9-20); Calcium 12.3 mg/dL (8.4-10.2); Carbon Dioxide 30 mmol/L (22-32); Chloride 96 mmol/L (98-107); Creatine Kinase 135 U/L (55-170); Estimated Glomerular Filt Rate 40.4 mL/min (>60); Globulin 2.3 g/dL (1.7-4.1); Glucose 113 mg/dL (80-110); HEMOLYSIS < 15 (0-50); Lactate (Lactic Acid) 0.7 mmol/L (0.7-2.1); Potassium 3.9 mmol/L (3.4-5.1); Sodium 132 mmol/L (137-145); Total Protein 5.5 g/dL (6.3-8.2)
[2020-11-15 18:37] LABS: Troponin I 0.014 ng/mL (0.01-0.034)
[2020-11-15 18:40] LABS: CKMB % Relative Index 1.8 % (1.5-5.0); Creatine Kinase MB 2.46 ng/mL (<2.37)
[2020-11-15 18:42] LABS: Prolactin 11.4 ng/mL (3.7-17.9)
--- NOTE | 2020-11-15 18:55 | ED_ITS ---
HPI - Altered Mental Status <Christo Todd PA-C - Last Filed: 11/15/20 19:39> General Chief Complaint: Altered Mental Status Stated Complaint: AMS Time Seen by Provider: 11/15/20 17:10 Source: EMS Mode of arrival: EMS Limitations: altered mental status History of Present Illness HPI narrative: Mohit presents today via ambulance after EMS was called by his when she was having difficulty arousing him earlier today. EMS report was vague and said altered mental status low blood glucose. History is not obtainable from the patient at this time due to his mental status. I called spoke with his daughter Rhona who filled me in on most of what is going on. He has primary history of bladder cancer and has started in immune modulating therapy. He is usually alert and oriented x4 and ambulatory but has had memory and confusion issues over the last 2 months that seems to be gradually getting worse. Over the last 2 days he has had an abrupt change in his mental status. He Had an appointment with his neurologist yesterday and apparently on the way while driving on the freeway in the passenger seat, the patient opened up the door and tried to get out of the car. His was able to redirect him. He was communicative yesterday and was able to ambulate with minimal assistance. However, earlier today his was not able to arouse him and noted that is eyelids with flutter open and then close. He was breathing normally so the called their daughter Rhona and she recommended that she call 911 now. When EMS arrived he had a blood glucose of 51. They gave him 12.5 mg of oral glucagon as well as 12.5 IV. After speaking on the phone with his daughter, they agreed to bring this patient to the emergency department. There has not been any recent dose adjustments to his medications. Related Data Home Medications Medication Instructions Recorded Confirmed aspirin 81 mg tablet,delayed 81 mg PO QDAY #0 04/18/16 10/25/20 release multivitamin (Multiple Vitamins) 1 tab PO QDAY #0 04/18/16 10/25/20 Previous Rx's Medication Instructions Recorded duloxetine 60 mg capsule,delayed 60 mg PO QNOON #90 cap 03/22/20 release atorvastatin 40 mg tablet 40 mg PO HS #30 tab 06/12/20 bupropion HCl 150 mg tablet,12 hr 150 mg PO BID #180 ea 07/06/20 sustained-release levothyroxine 50 mcg tablet 50 mcg PO DAILY #90 tab 09/20/20 metoprolol succinate 25 mg 25 mg PO DAILY #30 tab 09/20/20 tablet,extended release 24 hr ondansetron 4 mg disintegrating 4 mg PO Q6HR PRN #24 tab 10/16/20 tablet dronabinol 2.5 mg capsule 2.5 mg PO TID #90 cap 10/22/20 levofloxacin 250 mg tablet 500 mg PO Q24H #5 tab 10/22/20 magnesium oxide 400 mg (241.3 mg 400 mg PO DAILY #60 tab 10/22/20 magnesium) tablet polyethylene glycol 3350 17 gram 17 g PO DAILY #30 ea 10/22/20 oral powder packet sennosides 8.6 mg tablet (senna) 8.6 mg PO BEDTIME #30 tab 10/22/20 zolpidem 10 mg tablet (Ambien) 5 mg PO HS PRN #30 tab 10/22/20 hydrocodone 5 mg-acetaminophen 325 1 tab PO Q4HR PRN #60 tab 11/12/20 mg tablet Allergies Allergy/AdvReac Type Severity Reaction Status Date / Time Sulfa (Sulfonamide Allergy Unknown Unknown Verified 11/15/20 19:14 Antibiotics) reaction [SULFA (SULFONAMIDE per patient ANTIBIOTICS)] morphine AdvReac Severe Delirium, Verified 11/15/20 19:14 constipation prednisone AdvReac Intermediate Psychosis Verified 11/15/20 19:14 erythromycin base AdvReac Mild VOMITING Verified 11/15/20 19:14 [ERYTHROMYCIN BASE] tetracycline [TETRACYCLINE] AdvReac Mild VOMITING Verified 11/15/20 19:14 Review of Systems <Christo Todd PA-C - Last Filed: 11/15/20 19:39> Review of Systems Narrative: As per HPI Patient History <Christo Todd PA-C - Last Filed: 11/15/20 19:39> Medical History (Updated 11/16/20 @ 01:13 by Juan Carlos Ann DO) Bladder cancer Chronic back pain CIS (carcinoma in situ of bladder) Controlled type 2 diabetes mellitus without complication Coronary artery disease Depression Easy bruisability Hearing loss History of primary bladder cancer HTN (hypertension) Mild cognitive impairment Mixed hyperlipidemia Myocardial infarction Peripheral neuropathy Pneumonia Sleep apnea with use of continuous positive airway pressure (CPAP) Thin skin Tinnitus Wears glasses Surgical History Anesthesia H/O cystoscopy History of surgery (04/04/19) Hx of arthroscopy of right knee Hx of heart artery stent Hx of shoulder surgery (~2013) Hx of tonsillectomy 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) Family History Sister Breast cancer Father History of heart disease COPD (chronic obstructive pulmonary disease) Mother Stroke Brother History of heart disease Social History household members: spouse Smoking Status: Never smoker alcohol intake: never substance use type: does not use Smoking Status: Never smoker Substance Use Type: does not use Exam <Christo Todd PA-C - Last Filed: 11/15/20 19:39> Initial Vital Signs Initial Vital Signs: Vital Signs Temperature 97.4 F L 11/15/20 17:08 Pulse Rate 79 11/15/20 17:08 Respiratory Rate 21 11/15/20 17:08 Blood Pressure 98/54 L 11/15/20 17:08 Pulse Oximetry 94 11/15/20 17:08 Const General: No diaphoretic, ill appearing and lethargic Nutritional Appearance: overweight Neuro General: patient awake, oriented (non verbal) and moves all extremities (wiggles toes and squeezes hands when verbaly prompted) <Juan Carlos Ann DO - Last Filed: 11/16/20 01:13> Initial Vital Signs Initial Vital Signs: Vital Signs Temperature 97.4 F L 11/15/20 17:08 Pulse Rate 79 11/15/20 17:08 Respiratory Rate 21 11/15/20 17:08 Blood Pressure 98/54 L 11/15/20 17:08 Pulse Oximetry 94 11/15/20 17:08 Course <Christo Todd PA-C - Last Filed: 11/15/20 19:39> Course Course Narrative: I called and spoke with Dr. Hudson who is both this patient's PCP as well as our admitting hospitalist this time. He is very familiar with this patient and discussed with him in detail the presentation current situation of the patient. He thinks that admitting the patient here at [facility] would not be a good plan and recommends that he go somewhere where there is neurology available. We will start making the calls at this time. Orders Ordered: ED Orders 11/15/20 17:24 EKG-12 Lead Stat 11/15/20 17:26 CT head/brain wo con Stat XR chest 1V Stat 11/15/20 18:00 Acetaminophen Stat Complete Blood Count AUTO DIFF Stat Comprehensive Metabolic Panel Stat Lactate (Lactic Acid) Stat Prolactin Stat Prothrombin Time INR Stat Salicylate Stat Thyroid Stimulating Hormone Stat Troponin & CK Cardiac Panel Stat 11/15/20 18:36 Urinalysis and Microscopic Stat Urine Culture Stat Urine Drug Screen, Rapid Stat 11/15/20 18:57 COVID19 - ADMIT (MACHINE WASHER swab/PCR) Stat 11/15/20 19:10 CT abdomen pelvis w con Stat 11/15/20 20:00 Blood Culture Stat Magnesium Stat Troponin I Stat Sodium Chloride (Normal Saline 0.9%) 1,000 mls @ 150 mls/hr IV CONT BABS Last Admin: 11/15/20 19:06 Dose: 150 mls/hr Documented by: ATAYLOR Thiamine HCl 200 mg/ Sodium (Chloride) 102 mls @ 408 mls/hr IV DAILY BABS Last Infusion: 11/15/20 20:30 Dose: 0 mls/hr Documented by: Admin: 11/15/20 20:15 Dose: 408 mls/hr Documented by: ATAYLOR Dextrose ([email or web address]) 1,000 mls @ 100 mls/hr IV CONT BABS Last Admin: 11/15/20 23:36 Dose: 100 mls/hr Documented by: BEN Discontinued Medications Thiamine HCl 200 mg/ Sodium (Chloride) 102 mls @ 408 mls/hr IV DAILY BABS Vital Signs Vital signs: Vital Signs - 8 hr 11/15/20 17:08 11/15/20 18:21 11/15/20 18:30 Temperature 97.4 F L Pulse Rate 79 80 81 Respiratory Rate 21 17 20 Blood Pressure 98/54 L 110/60 Pulse Oximetry 94 97 94 11/15/20 19:00 11/15/20 19:30 11/15/20 20:00 Temperature Pulse Rate 79 80 83 Respiratory Rate 20 22 14 Blood Pressure 104/55 L 117/59 L Pulse Oximetry 96 98 97 11/15/20 20:17 11/15/20 20:24 11/15/20 20:30 Temperature Pulse Rate 80 81 Respiratory Rate 17 22 Blood Pressure 104/63 107/61 Pulse Oximetry 90 L 2 L 98 11/15/20 21:00 11/15/20 21:30 11/15/20 22:00 Temperature Pulse Rate 81 85 87 Respiratory Rate 23 20 18 Blood Pressure 112/65 107/56 L 107/64 Pulse Oximetry 99 100 100 11/15/20 22:30 11/15/20 23:00 11/15/20 23:01 Temperature Pulse Rate 86 81 83 Respiratory Rate 13 22 19 Blood Pressure 100/55 L 142/69 H Pulse Oximetry 97 98 99 11/15/20 23:30 11/15/20 23:31 11/16/20 00:00 Temperature Pulse Rate 91 H 88 90 Respiratory Rate 18 16 20 Blood Pressure 116/59 L Pulse Oximetry 100 100 100 <Juan Carlos Ann DO - Last Filed: 11/16/20 01:13> Orders Ordered: ED Orders 11/15/20 17:24 EKG-12 Lead Stat 11/15/20 17:26 CT head/brain wo con Stat XR chest 1V Stat 11/15/20 18:00 Acetaminophen Stat Complete Blood Count AUTO DIFF Stat Comprehensive Metabolic Panel Stat Lactate (Lactic Acid) Stat Prolactin Stat Prothrombin Time INR Stat Salicylate Stat Thyroid Stimulating Hormone Stat Troponin & CK Cardiac Panel Stat 11/15/20 18:36 Urinalysis and Microscopic Stat Urine Culture Stat Urine Drug Screen, Rapid Stat 11/15/20 18:57 COVID19 - ADMIT (MACHINE WASHER swab/PCR) Stat 11/15/20 19:10 CT abdomen pelvis w con Stat 11/15/20 20:00 Blood Culture Stat Magnesium Stat Troponin I Stat Sodium Chloride (Normal Saline 0.9%) 1,000 mls @ 150 mls/hr IV CONT BABS Last Admin: 11/15/20 19:06 Dose: 150 mls/hr Documented by: ATAYLOR Thiamine HCl 200 mg/ Sodium (Chloride) 102 mls @ 408 mls/hr IV DAILY BABS Last Infusion: 11/15/20 20:30 Dose: 0 mls/hr Documented by: Admin: 11/15/20 20:15 Dose: 408 mls/hr Documented by: ATAYLOR Dextrose ([email or web address]) 1,000 mls @ 100 mls/hr IV CONT BABS Last Admin: 11/15/20 23:36 Dose: 100 mls/hr Documented by: BEN Discontinued Medications Thiamine HCl 200 mg/ Sodium (Chloride) 102 mls @ 408 mls/hr IV DAILY BABS Vital Signs Vital signs: Vital Signs - 8 hr 11/15/20 17:08 11/15/20 18:21 11/15/20 18:30 Temperature 97.4 F L Pulse Rate 79 80 81 Respiratory Rate 21 17 20 Blood Pressure 98/54 L 110/60 Pulse Oximetry 94 97 94 11/15/20 19:00 11/15/20 19:30 11/15/20 20:00 Temperature Pulse Rate 79 80 83 Respiratory Rate 20 22 14 Blood Pressure 104/55 L 117/59 L Pulse Oximetry 96 98 97 11/15/20 20:17 11/15/20 20:24 11/15/20 20:30 Temperature Pulse Rate 80 81 Respiratory Rate 17 22 Blood Pressure 104/63 107/61 Pulse Oximetry 90 L 2 L 98 11/15/20 21:00 11/15/20 21:30 11/15/20 22:00 Temperature Pulse Rate 81 85 87 Respiratory Rate 23 20 18 Blood Pressure 112/65 107/56 L 107/64 Pulse Oximetry 99 100 100 11/15/20 22:30 11/15/20 23:00 11/15/20 23:01 Temperature Pulse Rate 86 81 83 Respiratory Rate 13 22 19 Blood Pressure 100/55 L 142/69 H Pulse Oximetry 97 98 99 11/15/20 23:30 11/15/20 23:31 11/16/20 00:00 Temperature Pulse Rate 91 H 88 90 Respiratory Rate 18 16 20 Blood Pressure 116/59 L Pulse Oximetry 100 100 100 MDM - Altered Mental Status <Christo Todd PA-C - Last Filed: 11/15/20 19:39> Lab Data Result diagrams: 11/15/20 18:00 11/15/20 18:00 Labs: Lab Results 11/15/20 11/15/20 11/15/20 Range/Units 18:00 18:00 18:00 WBC 6.6 (4.5-11.0) X10^3/uL RBC 2.88 L (4.5-5.9) X10^6/uL Hgb 9.5 L (13.5-17.5) g/dL Hct 27.9 L (41-53) % MCV 96.9 (80-100) fL MCH 33.0 (26-34) PG MCHC 34.1 (30-36) % RDW 13.6 (11.6-14.8) % Plt Count 109 L (150-400) X10^3/uL Neut % (Auto) 54.3 (50-75) % Lymph % (Auto) 30.3 (25-40) % Barnes % (Auto) 9.3 (3-14) % Eos % (Auto) 5.5 H (2-4) % Baso % (Auto) 0.6 (0-2) % Neut # (Auto) 3600 (1959-3120) /uL Lymph # (Auto) 2000 (5424-2274) /uL Barnes # (Auto) 600 (0-900) /uL Eos # (Auto) 400 (0-450) /uL Baso # (Auto) 0 (0-100) /uL PT (10.1-12.7) SECONDS INR (0.9-1.3) Sodium 132 L (137-145) mmol/L Potassium 3.9 (3.4-5.1) mmol/L Chloride 96 L (98-107) mmol/L Carbon Dioxide 30 (22-32) mmol/L BUN 22 H (9-20) mg/dL Creatinine 1.69 H (0.66-1.25) mg/dL Estimated GFR 40.4 L (>60) mL/min BUN/Creatinine Ratio 13.0 (6-22) Glucose 113 H (80-110) mg/dL Lactate 0.7 (0.7-2.1) mmol/L Calcium 12.3 H (8.4-10.2) mg/dL Magnesium (1.6-2.3) mg/dL Total Bilirubin 0.5 (0.2-1.3) mg/dL AST 34 (17-59) IU/L ALT 13 (<50) IU/L Alkaline Phosphatase 38 (38-126) U/L Total Creatine Kinase 135 (55-170) U/L CK-MB (CK-2) 2.46 H (<2.37) ng/mL CK-MB (CK-2) Rel Index 1.8 (1.5-5.0) % Troponin I 0.014 (0.01-0.034) ng/mL Total Protein 5.5 L (6.3-8.2) g/dL Albumin 3.2 L (3.5-5.0) g/dL Globulin 2.3 (1.7-4.1) g/dL Albumin/Globulin Ratio 1.4 (1.0-2.8) TSH (0.47-4.68) uIU/mL Prolactin 11.4 (3.7-17.9) ng/mL Urine Color Urine Appearance Urine pH (4.5-8.0) Ur Specific [place] (1.000-1.035) Urine Protein (Negative) Urine Glucose (UA) (Negative) g/dL Urine Ketones (NEGATIVE) Urine Occult Blood (Negative) Urine Nitrate (Negative) Urine Bilirubin (NEGATIVE) Urine Urobilinogen (0.2) E.U./dL Ur Leukocyte Esterase (NEGATIVE) Urine RBC (0-5/HPF) Urine WBC (0-5/HPF) Ur Squamous Epith Cells (0-5/HPF) Amorphous Sediment Urine Bacteria (None) Hyaline Casts (None) Urine Mucus (Negative) Ur Culture Indicated? Salicylates (<20) mg/dL U Opiates 300ng/mL cut (Negative) Ur Oxycodone Screen (Negative) Urine Methadone Screen (Negative) Acetaminophen (10-30) ug/mL Ur Barbiturates Screen (Negative) U Tricyclic Antidepress (Negative) Ur Phencyclidine Scrn (Negative) Ur Amphetamines Screen (Negative) U Methamphetamines Scrn (Negative) Ur MDMA Scrn (Ecstasy) (Negative) U Benzodiazepines Scrn (Negative) Urine Cocaine Screen (Negative) U Marijuana (THC) Screen (Negative) SARS-CoV-2 (PCR) (Negative) 11/15/20 11/15/20 11/15/20 Range/Units 18:00 18:00 18:00 WBC (4.5-11.0) X10^3/uL RBC (4.5-5.9) X10^6/uL Hgb (13.5-17.5) g/dL Hct (41-53) % MCV (80-100) fL MCH (26-34) PG MCHC (30-36) % RDW (11.6-14.8) % Plt Count (150-400) X10^3/uL Neut % (Auto) (50-75) % Lymph % (Auto) (25-40) % Barnes % (Auto) (3-14) % Eos % (Auto) (2-4) % Baso % (Auto) (0-2) % Neut # (Auto) (4979-5393) /uL Lymph # (Auto) (1035-8125) /uL Barnes # (Auto) (0-900) /uL Eos # (Auto) (0-450) /uL Baso # (Auto) (0-100) /uL PT 14.1 H (10.1-12.7) SECONDS INR 1.2 (0.9-1.3) Sodium (137-145) mmol/L Potassium (3.4-5.1) mmol/L Chloride (98-107) mmol/L Carbon Dioxide (22-32) mmol/L BUN (9-20) mg/dL Creatinine (0.66-1.25) mg/dL Estimated GFR (>60) mL/min BUN/Creatinine Ratio (6-22) Glucose (80-110) mg/dL Lactate (0.7-2.1) mmol/L Calcium (8.4-10.2) mg/dL Magnesium (1.6-2.3) mg/dL Total Bilirubin (0.2-1.3) mg/dL AST (17-59) IU/L ALT (<50) IU/L Alkaline Phosphatase (38-126) U/L Total Creatine Kinase (55-170) U/L CK-MB (CK-2) (<2.37) ng/mL CK-MB (CK-2) Rel Index (1.5-5.0) % Troponin I (0.01-0.034) ng/mL Total Protein (6.3-8.2) g/dL Albumin (3.5-5.0) g/dL Globulin (1.7-4.1) g/dL Albumin/Globulin Ratio (1.0-2.8) TSH 0.646 (0.47-4.68) uIU/mL Prolactin (3.7-17.9) ng/mL Urine Color Urine Appearance Urine pH (4.5-8.0) Ur Specific [place] (1.000-1.035) Urine Protein (Negative) Urine Glucose (UA) (Negative) g/dL Urine Ketones (NEGATIVE) Urine Occult Blood (Negative) Urine Nitrate (Negative) Urine Bilirubin (NEGATIVE) Urine Urobilinogen (0.2) E.U./dL Ur Leukocyte Esterase (NEGATIVE) Urine RBC (0-5/HPF) Urine WBC (0-5/HPF) Ur Squamous Epith Cells (0-5/HPF) Amorphous Sediment Urine Bacteria (None) Hyaline Casts (None) Urine Mucus (Negative) Ur Culture Indicated? Salicylates < 1.0 (<20) mg/dL U Opiates 300ng/mL cut (Negative) Ur Oxycodone Screen (Negative) Urine Methadone Screen (Negative) Acetaminophen < 10 L (10-30) ug/mL Ur Barbiturates Screen (Negative) U Tricyclic Antidepress (Negative) Ur Phencyclidine Scrn (Negative) Ur Amphetamines Screen (Negative) U Methamphetamines Scrn (Negative) Ur MDMA Scrn (Ecstasy) (Negative) U Benzodiazepines Scrn (Negative) Urine Cocaine Screen (Negative) U Marijuana (THC) Screen (Negative) SARS-CoV-2 (PCR) (Negative) 11/15/20 11/15/20 11/15/20 Range/Units 18:36 18:36 18:57 WBC (4.5-11.0) X10^3/uL RBC (4.5-5.9) X10^6/uL Hgb (13.5-17.5) g/dL Hct (41-53) % MCV (80-100) fL MCH (26-34) PG MCHC (30-36) % RDW (11.6-14.8) % Plt Count (150-400) X10^3/uL Neut % (Auto) (50-75) % Lymph % (Auto) (25-40) % Barnes % (Auto) (3-14) % Eos % (Auto) (2-4) % Baso % (Auto) (0-2) % Neut # (Auto) (4099-3461) /uL Lymph # (Auto) (0827-1642) /uL Barnes # (Auto) (0-900) /uL Eos # (Auto) (0-450) /uL Baso # (Auto) (0-100) /uL PT (10.1-12.7) SECONDS INR (0.9-1.3) Sodium (137-145) mmol/L Potassium (3.4-5.1) mmol/L Chloride (98-107) mmol/L Carbon Dioxide (22-32) mmol/L BUN (9-20) mg/dL Creatinine (0.66-1.25) mg/dL Estimated GFR (>60) mL/min BUN/Creatinine Ratio (6-22) Glucose (80-110) mg/dL Lactate (0.7-2.1) mmol/L Calcium (8.4-10.2) mg/dL Magnesium (1.6-2.3) mg/dL Total Bilirubin (0.2-1.3) mg/dL AST (17-59) IU/L ALT (<50) IU/L Alkaline Phosphatase (38-126) U/L Total Creatine Kinase (55-170) U/L CK-MB (CK-2) (<2.37) ng/mL CK-MB (CK-2) Rel Index (1.5-5.0) % Troponin I (0.01-0.034) ng/mL Total Protein (6.3-8.2) g/dL Albumin (3.5-5.0) g/dL Globulin (1.7-4.1) g/dL Albumin/Globulin Ratio (1.0-2.8) TSH (0.47-4.68) uIU/mL Prolactin (3.7-17.9) ng/mL Urine Color Yellow Urine Appearance Sl cloudy Urine pH 5.0 (4.5-8.0) Ur Specific [place] 1.025 (1.000-1.035) Urine Protein Negative (Negative) Urine Glucose (UA) Negative (Negative) g/dL Urine Ketones Trace H (NEGATIVE) Urine Occult Blood Negative (Negative) Urine Nitrate Negative (Negative) Urine Bilirubin Negative (NEGATIVE) Urine Urobilinogen 0.2 (0.2) E.U./dL Ur Leukocyte Esterase Trace H (NEGATIVE) Urine RBC None seen (0-5/HPF) Urine WBC 1-5/hpf (0-5/HPF) Ur Squamous Epith Cells 1-5 /hpf (0-5/HPF) Amorphous Sediment 1+ Urine Bacteria Few (2-10) H (None) Hyaline Casts 5-10/lpf (None) Urine Mucus 1+ H (Negative) Ur Culture Indicated? Specimen cultured Salicylates (<20) mg/dL U Opiates 300ng/mL cut Positive H (Negative) Ur Oxycodone Screen Negative (Negative) Urine Methadone Screen Negative (Negative) Acetaminophen (10-30) ug/mL Ur Barbiturates Screen Negative (Negative) U Tricyclic Antidepress Negative (Negative) Ur Phencyclidine Scrn Negative (Negative) Ur Amphetamines Screen Negative (Negative) U Methamphetamines Scrn Negative (Negative) Ur MDMA Scrn (Ecstasy) Negative (Negative) U Benzodiazepines Scrn Negative (Negative) Urine Cocaine Screen Negative (Negative) U Marijuana (THC) Screen Positive H (Negative) SARS-CoV-2 (PCR) Negative (Negative) 11/15/20 11/15/20 Range/Units 20:00 20:00 WBC (4.5-11.0) X10^3/uL RBC (4.5-5.9) X10^6/uL Hgb (13.5-17.5) g/dL Hct (41-53) % MCV (80-100) fL MCH (26-34) PG MCHC (30-36) % RDW (11.6-14.8) % Plt Count (150-400) X10^3/uL Neut % (Auto) (50-75) % Lymph % (Auto) (25-40) % Barnes % (Auto) (3-14) % Eos % (Auto) (2-4) % Baso % (Auto) (0-2) % Neut # (Auto) (5551-8765) /uL Lymph # (Auto) (6432-5087) /uL Barnes # (Auto) (0-900) /uL Eos # (Auto) (0-450) /uL Baso # (Auto) (0-100) /uL PT (10.1-12.7) SECONDS INR (0.9-1.3) Sodium (137-145) mmol/L Potassium (3.4-5.1) mmol/L Chloride (98-107) mmol/L Carbon Dioxide (22-32) mmol/L BUN (9-20) mg/dL Creatinine (0.66-1.25) mg/dL Estimated GFR (>60) mL/min BUN/Creatinine Ratio (6-22) Glucose (80-110) mg/dL Lactate (0.7-2.1) mmol/L Calcium (8.4-10.2) mg/dL Magnesium 1.5 L (1.6-2.3) mg/dL Total Bilirubin (0.2-1.3) mg/dL AST (17-59) IU/L ALT (<50) IU/L Alkaline Phosphatase (38-126) U/L Total Creatine Kinase (55-170) U/L CK-MB (CK-2) (<2.37) ng/mL CK-MB (CK-2) Rel Index (1.5-5.0) % Troponin I 0.015 (0.01-0.034) ng/mL Total Protein (6.3-8.2) g/dL Albumin (3.5-5.0) g/dL Globulin (1.7-4.1) g/dL Albumin/Globulin Ratio (1.0-2.8) TSH (0.47-4.68) uIU/mL Prolactin (3.7-17.9) ng/mL Urine Color Urine Appearance Urine pH (4.5-8.0) Ur Specific [place] (1.000-1.035) Urine Protein (Negative) Urine Glucose (UA) (Negative) g/dL Urine Ketones (NEGATIVE) Urine Occult Blood (Negative) Urine Nitrate (Negative) Urine Bilirubin (NEGATIVE) Urine Urobilinogen (0.2) E.U./dL Ur Leukocyte Esterase (NEGATIVE) Urine RBC (0-5/HPF) Urine WBC (0-5/HPF) Ur Squamous Epith Cells (0-5/HPF) Amorphous Sediment Urine Bacteria (None) Hyaline Casts (None) Urine Mucus (Negative) Ur Culture Indicated? Salicylates (<20) mg/dL U Opiates 300ng/mL cut (Negative) Ur Oxycodone Screen (Negative) Urine Methadone Screen (Negative) Acetaminophen (10-30) ug/mL Ur Barbiturates Screen (Negative) U Tricyclic Antidepress (Negative) Ur Phencyclidine Scrn (Negative) Ur Amphetamines Screen (Negative) U Methamphetamines Scrn (Negative) Ur MDMA Scrn (Ecstasy) (Negative) U Benzodiazepines Scrn (Negative) Urine Cocaine Screen (Negative) U Marijuana (THC) Screen (Negative) SARS-CoV-2 (PCR) (Negative) Point of Care Testing Glucose POC 86 <Juan Carlos Ann, DO - Last Filed: 11/16/20 01:13> Medical Records Attestation: I reviewed the patient's medical records. Lab Data Attestation: I reviewed the patient's lab results. Labs: Lab Results 11/15/20 11/15/20 11/15/20 Range/Units 18:00 18:00 18:00 WBC 6.6 (4.5-11.0) X10^3/uL RBC 2.88 L (4.5-5.9) X10^6/uL Hgb 9.5 L (13.5-17.5) g/dL Hct 27.9 L (41-53) % MCV 96.9 (80-100) fL MCH 33.0 (26-34) PG MCHC 34.1 (30-36) % RDW 13.6 (11.6-14.8) % Plt Count 109 L (150-400) X10^3/uL Neut % (Auto) 54.3 (50-75) % Lymph % (Auto) 30.3 (25-40) % Barnes % (Auto) 9.3 (3-14) % Eos % (Auto) 5.5 H (2-4) % Baso % (Auto) 0.6 (0-2) % Neut # (Auto) 3600 (4745-7892) /uL Lymph # (Auto) 2000 (5324-5816) /uL Barnes # (Auto) 600 (0-900) /uL Eos # (Auto) 400 (0-450) /uL Baso # (Auto) 0 (0-100) /uL PT (10.1-12.7) SECONDS INR (0.9-1.3) Sodium 132 L (137-145) mmol/L Potassium 3.9 (3.4-5.1) mmol/L Chloride 96 L (98-107) mmol/L Carbon Dioxide 30 (22-32) mmol/L BUN 22 H (9-20) mg/dL Creatinine 1.69 H (0.66-1.25) mg/dL Estimated GFR 40.4 L (>60) mL/min BUN/Creatinine Ratio 13.0 (6-22) Glucose 113 H (80-110) mg/dL Lactate 0.7 (0.7-2.1) mmol/L Calcium 12.3 H (8.4-10.2) mg/dL Magnesium (1.6-2.3) mg/dL Total Bilirubin 0.5 (0.2-1.3) mg/dL AST 34 (17-59) IU/L ALT 13 (<50) IU/L Alkaline Phosphatase 38 (38-126) U/L Total Creatine Kinase 135 (55-170) U/L CK-MB (CK-2) 2.46 H (<2.37) ng/mL CK-MB (CK-2) Rel Index 1.8 (1.5-5.0) % Troponin I 0.014 (0.01-0.034) ng/mL Total Protein 5.5 L (6.3-8.2) g/dL Albumin 3.2 L (3.5-5.0) g/dL Globulin 2.3 (1.7-4.1) g/dL Albumin/Globulin Ratio 1.4 (1.0-2.8) TSH (0.47-4.68) uIU/mL Prolactin 11.4 (3.7-17.9) ng/mL Urine Color Urine Appearance Urine pH (4.5-8.0) Ur Specific [place] (1.000-1.035) Urine Protein (Negative) Urine Glucose (UA) (Negative) g/dL Urine Ketones (NEGATIVE) Urine Occult Blood (Negative) Urine Nitrate (Negative) Urine Bilirubin (NEGATIVE) Urine Urobilinogen (0.2) E.U./dL Ur Leukocyte Esterase (NEGATIVE) Urine RBC (0-5/HPF) Urine WBC (0-5/HPF) Ur Squamous Epith Cells (0-5/HPF) Amorphous Sediment Urine Bacteria (None) Hyaline Casts (None) Urine Mucus (Negative) Ur Culture Indicated? Salicylates (<20) mg/dL U Opiates 300ng/mL cut (Negative) Ur Oxycodone Screen (Negative) Urine Methadone Screen (Negative) Acetaminophen (10-30) ug/mL Ur Barbiturates Screen (Negative) U Tricyclic Antidepress (Negative) Ur Phencyclidine Scrn (Negative) Ur Amphetamines Screen (Negative) U Methamphetamines Scrn (Negative) Ur MDMA Scrn (Ecstasy) (Negative) U Benzodiazepines Scrn (Negative) Urine Cocaine Screen (Negative) U Marijuana (THC) Screen (Negative) SARS-CoV-2 (PCR) (Negative) 11/15/20 11/15/20 11/15/20 Range/Units 18:00 18:00 18:00 WBC (4.5-11.0) X10^3/uL RBC (4.5-5.9) X10^6/uL Hgb (13.5-17.5) g/dL Hct (41-53) % MCV (80-100) fL MCH (26-34) PG MCHC (30-36) % RDW (11.6-14.8) % Plt Count (150-400) X10^3/uL Neut % (Auto) (50-75) % Lymph % (Auto) (25-40) % Barnes % (Auto) (3-14) % Eos % (Auto) (2-4) % Baso % (Auto) (0-2) % Neut # (Auto) (8072-5703) /uL Lymph # (Auto) (5595-3787) /uL Barnes # (Auto) (0-900) /uL Eos # (Auto) (0-450) /uL Baso # (Auto) (0-100) /uL PT 14.1 H (10.1-12.7) SECONDS INR 1.2 (0.9-1.3) Sodium (137-145) mmol/L Potassium (3.4-5.1) mmol/L Chloride (98-107) mmol/L Carbon Dioxide (22-32) mmol/L BUN (9-20) mg/dL Creatinine (0.66-1.25) mg/dL Estimated GFR (>60) mL/min BUN/Creatinine Ratio (6-22) Glucose (80-110) mg/dL Lactate (0.7-2.1) mmol/L Calcium (8.4-10.2) mg/dL Magnesium (1.6-2.3) mg/dL Total Bilirubin (0.2-1.3) mg/dL AST (17-59) IU/L ALT (<50) IU/L Alkaline Phosphatase (38-126) U/L Total Creatine Kinase (55-170) U/L CK-MB (CK-2) (<2.37) ng/mL CK-MB (CK-2) Rel Index (1.5-5.0) % Troponin I (0.01-0.034) ng/mL Total Protein (6.3-8.2) g/dL Albumin (3.5-5.0) g/dL Globulin (1.7-4.1) g/dL Albumin/Globulin Ratio (1.0-2.8) TSH 0.646 (0.47-4.68) uIU/mL Prolactin (3.7-17.9) ng/mL Urine Color Urine Appearance Urine pH (4.5-8.0) Ur Specific [place] (1.000-1.035) Urine Protein (Negative) Urine Glucose (UA) (Negative) g/dL Urine Ketones (NEGATIVE) Urine Occult Blood (Negative) Urine Nitrate (Negative) Urine Bilirubin (NEGATIVE) Urine Urobilinogen (0.2) E.U./dL Ur Leukocyte Esterase (NEGATIVE) Urine RBC (0-5/HPF) Urine WBC (0-5/HPF) Ur Squamous Epith Cells (0-5/HPF) Amorphous Sediment Urine Bacteria (None) Hyaline Casts (None) Urine Mucus (Negative) Ur Culture Indicated? Salicylates < 1.0 (<20) mg/dL U Opiates 300ng/mL cut (Negative) Ur Oxycodone Screen (Negative) Urine Methadone Screen (Negative) Acetaminophen < 10 L (10-30) ug/mL Ur Barbiturates Screen (Negative) U Tricyclic Antidepress (Negative) Ur Phencyclidine Scrn (Negative) Ur Amphetamines Screen (Negative) U Methamphetamines Scrn (Negative) Ur MDMA Scrn (Ecstasy) (Negative) U Benzodiazepines Scrn (Negative) Urine Cocaine Screen (Negative) U Marijuana (THC) Screen (Negative) SARS-CoV-2 (PCR) (Negative) 11/15/20 11/15/20 11/15/20 Range/Units 18:36 18:36 18:57 WBC (4.5-11.0) X10^3/uL RBC (4.5-5.9) X10^6/uL Hgb (13.5-17.5) g/dL Hct (41-53) % MCV (80-100) fL MCH (26-34) PG MCHC (30-36) % RDW (11.6-14.8) % Plt Count (150-400) X10^3/uL Neut % (Auto) (50-75) % Lymph % (Auto) (25-40) % Barnes % (Auto) (3-14) % Eos % (Auto) (2-4) % Baso % (Auto) (0-2) % Neut # (Auto) (5195-0341) /uL Lymph # (Auto) (9523-3535) /uL Barnes # (Auto) (0-900) /uL Eos # (Auto) (0-450) /uL Baso # (Auto) (0-100) /uL PT (10.1-12.7) SECONDS INR (0.9-1.3) Sodium (137-145) mmol/L Potassium (3.4-5.1) mmol/L Chloride (98-107) mmol/L Carbon Dioxide (22-32) mmol/L BUN (9-20) mg/dL Creatinine (0.66-1.25) mg/dL Estimated GFR (>60) mL/min BUN/Creatinine Ratio (6-22) Glucose (80-110) mg/dL Lactate (0.7-2.1) mmol/L Calcium (8.4-10.2) mg/dL Magnesium (1.6-2.3) mg/dL Total Bilirubin (0.2-1.3) mg/dL AST (17-59) IU/L ALT (<50) IU/L Alkaline Phosphatase (38-126) U/L Total Creatine Kinase (55-170) U/L CK-MB (CK-2) (<2.37) ng/mL CK-MB (CK-2) Rel Index (1.5-5.0) % Troponin I (0.01-0.034) ng/mL Total Protein (6.3-8.2) g/dL Albumin (3.5-5.0) g/dL Globulin (1.7-4.1) g/dL Albumin/Globulin Ratio (1.0-2.8) TSH (0.47-4.68) uIU/mL Prolactin (3.7-17.9) ng/mL Urine Color Yellow Urine Appearance Sl cloudy Urine pH 5.0 (4.5-8.0) Ur Specific [place] 1.025 (1.000-1.035) Urine Protein Negative (Negative) Urine Glucose (UA) Negative (Negative) g/dL Urine Ketones Trace H (NEGATIVE) Urine Occult Blood Negative (Negative) Urine Nitrate Negative (Negative) Urine Bilirubin Negative (NEGATIVE) Urine Urobilinogen 0.2 (0.2) E.U./dL Ur Leukocyte Esterase Trace H (NEGATIVE) Urine RBC None seen (0-5/HPF) Urine WBC 1-5/hpf (0-5/HPF) Ur Squamous Epith Cells 1-5 /hpf (0-5/HPF) Amorphous Sediment 1+ Urine Bacteria Few (2-10) H (None) Hyaline Casts 5-10/lpf (None) Urine Mucus 1+ H (Negative) Ur Culture Indicated? Specimen cultured Salicylates (<20) mg/dL U Opiates 300ng/mL cut Positive H (Negative) Ur Oxycodone Screen Negative (Negative) Urine Methadone Screen Negative (Negative) Acetaminophen (10-30) ug/mL Ur Barbiturates Screen Negative (Negative) U Tricyclic Antidepress Negative (Negative) Ur Phencyclidine Scrn Negative (Negative) Ur Amphetamines Screen Negative (Negative) U Methamphetamines Scrn Negative (Negative) Ur MDMA Scrn (Ecstasy) Negative (Negative) U Benzodiazepines Scrn Negative (Negative) Urine Cocaine Screen Negative (Negative) U Marijuana (THC) Screen Positive H (Negative) SARS-CoV-2 (PCR) Negative (Negative) 11/15/20 11/15/20 Range/Units 20:00 20:00 WBC (4.5-11.0) X10^3/uL RBC (4.5-5.9) X10^6/uL Hgb (13.5-17.5) g/dL Hct (41-53) % MCV (80-100) fL MCH (26-34) PG MCHC (30-36) % RDW (11.6-14.8) % Plt Count (150-400) X10^3/uL Neut % (Auto) (50-75) % Lymph % (Auto) (25-40) % Barnes % (Auto) (3-14) % Eos % (Auto) (2-4) % Baso % (Auto) (0-2) % Neut # (Auto) (3677-2709) /uL Lymph # (Auto) (1672-8916) /uL Barnes # (Auto) (0-900) /uL Eos # (Auto) (0-450) /uL Baso # (Auto) (0-100) /uL PT (10.1-12.7) SECONDS INR (0.9-1.3) Sodium (137-145) mmol/L Potassium (3.4-5.1) mmol/L Chloride (98-107) mmol/L Carbon Dioxide (22-32) mmol/L BUN (9-20) mg/dL Creatinine (0.66-1.25) mg/dL Estimated GFR (>60) mL/min BUN/Creatinine Ratio (6-22) Glucose (80-110) mg/dL Lactate (0.7-2.1) mmol/L Calcium (8.4-10.2) mg/dL Magnesium 1.5 L (1.6-2.3) mg/dL Total Bilirubin (0.2-1.3) mg/dL AST (17-59) IU/L ALT (<50) IU/L Alkaline Phosphatase (38-126) U/L Total Creatine Kinase (55-170) U/L CK-MB (CK-2) (<2.37) ng/mL CK-MB (CK-2) Rel Index (1.5-5.0) % Troponin I 0.015 (0.01-0.034) ng/mL Total Protein (6.3-8.2) g/dL Albumin (3.5-5.0) g/dL Globulin (1.7-4.1) g/dL Albumin/Globulin Ratio (1.0-2.8) TSH (0.47-4.68) uIU/mL Prolactin (3.7-17.9) ng/mL Urine Color Urine Appearance Urine pH (4.5-8.0) Ur Specific [place] (1.000-1.035) Urine Protein (Negative) Urine Glucose (UA) (Negative) g/dL Urine Ketones (NEGATIVE) Urine Occult Blood (Negative) Urine Nitrate (Negative) Urine Bilirubin (NEGATIVE) Urine Urobilinogen (0.2) E.U./dL Ur Leukocyte Esterase (NEGATIVE) Urine RBC (0-5/HPF) Urine WBC (0-5/HPF) Ur Squamous Epith Cells (0-5/HPF) Amorphous Sediment Urine Bacteria (None) Hyaline Casts (None) Urine Mucus (Negative) Ur Culture Indicated? Salicylates (<20) mg/dL U Opiates 300ng/mL cut (Negative) Ur Oxycodone Screen (Negative) Urine Methadone Screen (Negative) Acetaminophen (10-30) ug/mL Ur Barbiturates Screen (Negative) U Tricyclic Antidepress (Negative) Ur Phencyclidine Scrn (Negative) Ur Amphetamines Screen (Negative) U Methamphetamines Scrn (Negative) Ur MDMA Scrn (Ecstasy) (Negative) U Benzodiazepines Scrn (Negative) Urine Cocaine Screen (Negative) U Marijuana (THC) Screen (Negative) SARS-CoV-2 (PCR) (Negative) Point of Care Testing Glucose POC [address] scan - abdomen/pelvis: Radiologist's Impression: [address] [address] [address] Scan Report Signed Patient: Mohit Bautista MR#: [id number] : 1950 Acct:[id number] Age/Sex: 70 / M Date of Service: 11/15/20 Loc: ED Accession Number: [id number] ?? Procedure: CT abdomen pelvis w con Ordering Provider: Christo Todd P.A-C PROCEDURE:? CT ABDOMEN PELVIS W CON ? INDICATIONS:? right sided abd guarding ? TECHNIQUE:? After the administration of intravenous contrast, axial sections acquired from the lung bases to the pubic symphysis.? Coronal and sagittal reformats were performed.? For radiation dose reduction, the following was used:? automated exposure control, adjustment of mA and/or kV according to patient size.? ? COMPARISON:? [facility], CT, CT ABDOMEN PELVIS W CON, 10/19/2020, 11:38. ? FINDINGS: ABDOMEN:? Lung bases:? Patchy ill-defined and ground-glass opacities in both lung bases dependently.? Mild thickening of the interlobular septal lines. Heart:? No pericardial effusion. Normal in size.? Coronary artery calcifications. ? Liver: Normal. Gallbladder:? Negative. Bile ducts: Normal. Pancreas: Normal.? Spleen: Normal.? Adrenals: Normal. Kidneys and Ureters:? Nonobstructive 2 mm right renal calculus.? No hydronephrosis. Stomach and duodenum: Normal. Bowel:? Normal appearance of the appendix.? Scattered colonic diverticulosis. Other:? No free fluid or air.? Abdominal nodes:? Normal. Aorta and IVC: Normal in size.? ? Ventral wall: Normal. ? PELVIS:? ? Bladder:? Bladder is decompressed and a Garcia catheter is present. Inguinal region: No hernia.? Pelvic nodes: Normal.? ? Bones:? No suspicious bony lesions.? No vertebral body compression fractures.? Diffuse spondylosis and facet arthropathy. ? ? IMPRESSION:? No specific abnormality to account for right-sided abdominal pain.? Nonobstructive 2 mm right renal calculus.? Normal appearance of the appendix.? Normal appearance of the gallbladder. ? Ill-defined opacities in both lung bases with mild thickening of the interlobular septal lines.? This could reflect pulmonary edema versus viral/atypical pneumonia.? Please correlate clinically. If there is persistent clinical diagnostic uncertainty, continued surveillance with short interval radiographic followup after treatment is recommended. ? ? Dictated by: Xavi Mcdaniel M.D. on 11/15/2020 at 20:29 ? ? Approved by: Xavi Mcdaniel M.D. on 11/15/2020 at 20:34?? CT scan - head: Radiologist's Impression: [place] [address] CT Scan Report Signed Patient: Mohit Bautista MR#: [id number] : 1950 Acct:[id number] Age/Sex: 70 / M Date of Service: 11/15/20 Loc: ED Accession Number: [id number] ?? Procedure: CT head/brain wo con Ordering Provider: Christo Todd P.A-C PROCEDURE:? CT HEAD/BRAIN WO CON ? INDICATIONS:? altered mental status ? TECHNIQUE:? Noncontrast 4.5 mm thick angled axial sections acquired from the foramen magnum to the vertex, with coronal and sagittal reformats.? For radiation dose reduction, the following was used:? automated exposure control, adjustment of mA and/or kV according to patient size.? ? COMPARISON:? [facility], CT, CT HEAD/BRAIN WO CON, 10/18/2020, 18:13. ? FINDINGS:? Image quality:? Excellent.? ? CSF spaces:? Basal cisterns are patent.? No extra-axial fluid collections.? The ventricles are symmetric in size and shape.? ? Brain:? No intracranial bleeds or masses.? There is cerebral volume loss for age, with resultant ventricular and sulcal prominence.? There are periventricular and deep white matter chronic small vessel ischemic changes.? There is intracranial internal ca rotid artery atherosclerosis.? ? Skull and face:? Calvarium and visualized facial bones appear intact, without suspicious lesions.? ? Sinuses:? Complete opacification of the right frontal sinus , unchanged. ? IMPRESSION:? No acute intracranial process. ? Dictated by: Xavi Mcdaniel M.D. on 11/15/2020 at 17:52 ? ? Approved by: Xavi Mcdaniel M.D. on 11/15/2020 at 17:55? Chest x-ray: Radiologist's Impression: [address] [address] XRay Report Signed Patient: Mohit Bautista MR#: [id number] : 1950 Acct:[id number] Age/Sex: 70 / M Date of Service: 11/15/20 Loc: ED Accession Number: [id number] ?? Procedure: XR chest 1V Ordering Provider: Christo Todd P.A-C PROCEDURE:? XR CHEST 1V ? INDICATIONS:? AMS ? TECHNIQUE:? One view of the chest was acquired.? ? COMPARISON:? [facility], CR, XR CHEST 1V, 10/18/2020, 16:39. ? FINDINGS:? ? Surgical changes and devices:? Left chest port with the tip projecting in the upper SVC. ? Lungs and pleura:? Scattered subsegmental atelectasis and/or scarring. No focal consolidation.? No pleural effusion or pneumothorax.? Low lung volumes ? Mediastinum:? Mediastinal contours appear normal.? Heart size is normal.? ? Bones and chest wall:? No suspicious bony lesions.? Overlying soft tissues appear unremarkable.? ? IMPRESSION:? Scattered subsegmental atelectasis and/or scarring. No focal consolidation.? Dictated by: Xavi Mcdaniel M.D. on 11/15/2020 at 17:55 ? ? Approved by: Xavi Mcdaniel M.D. on 11/15/2020 at 17:56?? ECG Data Attestation: I personally reviewed and interpreted this ECG as follows: Interpretation: Sinus rhythm Ventricular rate is 79 Left axis deviation Will QRS Normal QTC No ST T wave changes MDM Narrative Medical decision making narrative: Dr ann: Received turned over from day a APC who initially evaluated the patient. I did review the patient's history and physical and workup that has been performed up until this point. His head CT is unremarkable. CT scan of his abdomen which was ordered for reported right- sided abdominal pain is also unremarkable. His labs are unremarkable except for an acute kidney injury. I suspect this is related to the fact that he has not had much to eat or drink for the past couple days. I did have an extended discussion with the patient's . This is the patient's 3rd visit to the hospital for what is apparently the same symptoms. His first two visits to the emergency department ended up with him being admitted to this facility. During his last visit here which was approximately 1 month ago he had a MRI of his head which is unremarkable. This was ordered because of his history of bladder cancer in the concern for potential metastasis/stroke. The patient is followed by Oncology but has not received an infusion of his chemotherapy since August of this year. His states that he seems to improve after he receives fluid but then when he gets home he then starts to decline. She states that they had an appointment with Neurology yesterday. This was ordered by his primary provider. Patient's states that the neurologist said that he could not evaluate the patient secondary to his inability/on willingness to participate in any the cognitive studies. There is also mention in the patient's prior primary doc tor's note that there was some concern about cognitive decline although he has not been specifically diagnosed with any dementia. Does not appear to be a toxicologic reason for the patient's visit today. He was positive for marijuana and also opioids but these are not new for him. His Tylenol salicylate and alcohol levels were all unremarkable. I have low suspicion for hepatic encephalopathy. Her earlier today he was hypoglycemic. He does have a history of diabetes but is not on medication for this. Receiving glucose by EMS did not change his mental status. During his time here in the ER he was able to drink a small amount of juice however his blood sugar continue to decrease so he is placed on a D5 infusion. There is no signs of trauma. His head CT is unremarkable. No signs of an infectious process. He was not given antibiotics. I am unsure the exact etiology of the patient's symptoms however he certainly cannot be discharged home. He is breathing on his own although did have some episodes of hypoxia when he was sleeping. This improved with oxygen by nasal cannula. He does follow commands to the point where he can wiggle his toes but does not answer any questions. He is not able to stand on his own. I did discuss the case with the patient's primary provider who stated that he was uncomfortable admitting the patient to this facility again. He felt that the pa loree should be transferred to a facility that has Neurology/psychiatry. After multiple calls to multiple different facilities with out any success in finding a bed placement I did discuss the case with Dr. Adler at [facility] who accepts the patient for transfer. We very much appreciate his help in this situation. Patient is stable for transport. Discharge Plan Departure Patient Disposition: [facility] Clinical Impression: Altered mental status, Hypoglycemia, Acute kidney injury, Bladder cancer Prescriptions: No Action aspirin 81 MG tablet,delayed release (DR/EC) 81 mg PO QDAY Qty: 0 RF: 0 multivitamin [Multiple Vitamins] 1 EACH tablet 1 tab PO QDAY Qty: 0 RF: 0 atorvastatin 40 mg tablet 40 mg PO HS Qty: 30 RF: 6 bupropion HCl 150 mg tablet sustained-release 12 hr 150 mg PO BID Qty: 180 RF: 3 levothyroxine 50 mcg tablet 50 mcg PO DAILY Qty: 90 RF: 3 ondansetron 4 mg tablet,disintegrating 4 mg PO Q6HR PRN (Reason: nausea and vomiting) Qty: 24 RF: 1 hydrocodone-acetaminophen 5-325 mg tablet 1 tab PO Q4HR PRN (Reason: Pain, Moderate (4-6)) Qty: 60 RF: 0 metoprolol succinate 25 mg tablet extended release 24 hr 25 mg PO DAILY Qty: 30 RF: 3 duloxetine 60 mg capsule,delayed release(DR/EC) 60 mg PO QNOON Qty: 90 RF: 3 polyethylene glycol 3350 17 gram Powder In Packet 17 g PO DAILY Qty: 30 RF: 8 levofloxacin 250 mg Tablet 500 mg PO Q24H Qty: 5 RF: 0 dronabinol 2.5 mg Capsule 2.5 mg PO TID Qty: 90 RF: 0 sennosides [senna] 8.6 mg Tablet 8.6 mg PO BEDTIME Qty: 30 RF: 3 magnesium oxide 400 mg (241.3 mg magnesium) Tablet 400 mg PO DAILY Qty: 60 RF: 3 zolpidem [Ambien] 10 mg tablet 5 mg PO HS PRN (Reason: insomnia) Qty: 30 RF: 2 Referrals: Jeffrey Hudson MD [Primary Care Provider] -
[2020-11-15 19:06] LABS: Appearance Urine UA SL CLOUDY; Bilirubin Urine UA NEGATIVE (NEGATIVE); Color Urine UA YELLOW; Glucose Urine UA NEGATIVE (Negative); Ketones Urine UA TRACE (NEGATIVE); Leukocyte Esterase Urine UA TRACE (NEGATIVE); Nitrite Urine UA NEGATIVE (Negative); Occult Blood Urine UA NEGATIVE (Negative); Protein Urine UA NEGATIVE (Negative); Specific Gravity Urine UA 1.025 (1.000-1.035); Urobilinogen Urine UA 0.2 E.U./dL (0.2)
[2020-11-15] MEDS: SODIUM CHLORIDE 0.9% 1,000 ML 150 ML IV (19:06)
[2020-11-15 19:07] LABS: Acetaminophen < 10 ug/mL (10-30); Salicylate < 1.0 mg/dL (<20)
--- NOTE | 2020-11-15 19:10 | DI.CT.S_ITS ---
PROCEDURE: CT ABDOMEN PELVIS W CON INDICATIONS: right sided abd guarding TECHNIQUE: After the administration of intravenous contrast, axial sections acquired from the lung bases to the pubic symphysis. Coronal and sagittal reformats were performed. For radiation dose reduction, the following was used: automated exposure control, adjustment of mA and/or kV according to patient size. COMPARISON: [facility], CT, CT ABDOMEN PELVIS W CON, 10/19/2020, 11:38. FINDINGS: ABDOMEN: Lung bases: Patchy ill-defined and ground-glass opacities in both lung bases dependently. Mild thickening of the interlobular septal lines. Heart: No pericardial effusion. Normal in size. Coronary artery calcifications. Liver: Normal. Gallbladder: Negative. Bile ducts: Normal. Pancreas: Normal. Spleen: Normal. Adrenals: Normal. Kidneys and Ureters: Nonobstructive 2 mm right renal calculus. No hydronephrosis. Stomach and duodenum: Normal. Bowel: Normal appearance of the appendix. Scattered colonic diverticulosis. Other: No free fluid or air. Abdominal nodes: Normal. Aorta and IVC: Normal in size. Ventral wall: Normal. PELVIS: Bladder: Bladder is decompressed and a Garcia catheter is present. Inguinal region: No hernia. Pelvic nodes: Normal. Bones: No suspicious bony lesions. No vertebral body compression fractures. Diffuse spondylosis and facet arthropathy. IMPRESSION: No specific abnormality to account for right-sided abdominal pain. Nonobstructive 2 mm right renal calculus. Normal appearance of the appendix. Normal appearance of the gallbladder. Ill-defined opacities in both lung bases with mild thickening of the interlobular septal lines. This could reflect pulmonary edema versus viral/atypical pneumonia. Please correlate clinically. If there is persistent clinical diagnostic uncertainty, continued surveillance with short interval radiographic followup after treatment is recommended. Dictated by: Xavi Mcdaniel M.D. on 11/15/2020 at 20:29 Approved by: Xavi Mcdaniel M.D. on 11/15/2020 at 20:34
[2020-11-15 19:16] LABS: UR Morphine/Opiate cutoff 300 Positive (Negative); Ur Creatinine Normal (Normal); Ur Specific Gravity Normal (Normal); Urine Amphetamines Negative (Negative); Urine Barbiturates Negative (Negative); Urine Benzodiazepines Negative (Negative); Urine Cocaine Negative (Negative); Urine MDMA Negative (Negative); Urine Methadone Negative (Negative); Urine Methamphetamines Negative (Negative); Urine Oxycodone Negative (Negative); Urine Phencyclidine Negative (Negative); Urine Tetrahydrocannabinol Positive (Negative); Urine Tricyclic Antidepressant Negative (Negative); Urine pH Normal (Normal)
[2020-11-15 19:19] LABS: Amorphous Sediment Urine 1+; Bacteria Urine Few (2-10); Culture Indicated Urine Specimen Cultured; Hyaline Casts Urine 5-10/LPF; Mucus Urine 1+ (Negative); RBC Urine None Seen (0-5/HPF); Squamous Epithelial Cell Urine 1-5 /HPF (0-5/HPF); WBC Urine 1-5/HPF (0-5/HPF)
[2020-11-15 20:01] LABS: Thyroid Stimulating Hormone 0.646 uIU/mL (0.47-4.68)
[2020-11-15 20:10] LABS: COVID19 - ADMIT (NP swab/PCR) Negative (Negative)
[2020-11-15] MEDS: THIAMINE 200 MG in SODIUM CHLORIDE 0.9% 100 ML 408 ML IV (20:15)
[2020-11-15 20:33] LABS: Magnesium 1.5 mg/dL (1.6-2.3)
[2020-11-15 20:46] LABS: Troponin I 0.015 ng/mL (0.01-0.034)
--- NOTE | 2020-11-15 22:26 | PC.NURSE ---
His went home for night,she stated he seems more alert,he opened his eyes spontaneously and gave yes or no answers to some simple questions,I asked him,Did your go home and he Toño guess so.He drank 100 ml cranberry juice but would not eat solid food,no difficulty swallowing.DR Ann reviewed his home med list with me and it was decided to give no meds at this time and to keep assessing his blood sugars.
[2020-11-15] MEDS: DEXTROSE 10 % IN WATER 1,000 ML 100 ML IV (23:36)
[2020-11-16] VITALS: PULSE 90; RESP 20; O2SAT 100
[2020-11-16 00:29] VITALS: BP 103/58; PULSE 92; RESP 20; O2SAT 97
[2020-11-16 00:30] VITALS: BP 98/54; PULSE 91; RESP 16; O2SAT 98
[2020-11-16 01:00] VITALS: BP 95/58; PULSE 85; RESP 22; O2SAT 98
[2020-11-16 01:30] VITALS: BP 110/63; PULSE 85; RESP 18; O2SAT 100
--- NOTE | 2020-11-16 02:22 | PC.NURSE ---
His D10 iv rate was decreased to 50 ml per hr at [address] Ann verbal order.Icalled his Michaela and gave her the phone and room number to [facility].
== END 2020-11-16 02:00 | disposition short-term general hospital (02) ==
PROVIDERS: Physician Assistant; Emergency Provider Emergency Medicine; PCP Internal Medicine
DX: R41.82 Altered mental status, unspecified (principal); R09.02 Hypoxemia; E11.649 Type 2 diabetes mellitus with hypoglycemia without coma; N17.9 Acute kidney failure, unspecified; C67.9 Malignant neoplasm of bladder, unspecified; R10.9 Unspecified abdominal pain; Z20.822 Contact with and (suspected) exposure to COVID-19
CPT/HCPCS: 36415; 70450; 71045; 74177; 80053; 80305; 80329; 81001; 82550; 82553; 82962; 83605; 83735; 84146; 84443; 84484; 85025; 85610; 87040; 87086; 87635; 93005; 96360; 96361; 99285; C9803; G0480

== ENCOUNTER → 2020-12-11 14:37 | Outpatient (CLI) | payer MEDICARE, BC, SELFPAY ==
[2020-10-18 19:48] VITALS: BMI 29.5
[2020-12-11 15:20] LABS: Alanine Aminotransferase 15 IU/L (<50); Albumin 3.3 g/dL (3.5-5.0); Albumin Globulin Ratio 1.6 (1.0-2.8); Alkaline Phosphatase 65 U/L (38-126); Aspartate Aminotransferase 25 IU/L (17-59); BUN Creatinine Ratio 11.9 (6-22); Bilirubin Total 0.4 mg/dL (0.2-1.3); Blood Urea Nitrogen 10 mg/dL (9-20); Calcium 8.4 mg/dL (8.4-10.2); Carbon Dioxide 26 mmol/L (22-32); Chloride 107 mmol/L (98-107); Estimated Glomerular Filt Rate > 60.0 mL/min (>60); Globulin 2.1 g/dL (1.7-4.1); Glucose 90 mg/dL (80-110); HEMOLYSIS 31 (0-50); Potassium 4.1 mmol/L (3.4-5.1); Sodium 140 mmol/L (137-145); Total Protein 5.4 g/dL (6.3-8.2)
== END ==
PROVIDERS: PCP Internal Medicine; Referring Provider Internal Medicine; Visit Provider Internal Medicine
DX: E78.2 Mixed hyperlipidemia (principal); F32.4 Major depressive disorder, single episode, in partial remission; G31.84 Mild cognitive impairment of uncertain or unknown etiology
CPT/HCPCS: 36415; 80053

== ENCOUNTER → 2020-12-27 14:32 | Outpatient (CLI) | payer MEDICARE, BC, SELFPAY ==
[2020-10-18 19:48] VITALS: BMI 29.5
[2020-12-28 16:11] LABS: Clostridium Difficile Tox PCR Negative for C. diff (Negative)
== END ==
PROVIDERS: PCP Internal Medicine; Referring Provider Internal Medicine; Visit Provider Internal Medicine
DX: R19.7 Diarrhea, unspecified (principal)
CPT/HCPCS: 87493

== ENCOUNTER → 2021-01-01 12:14 | Outpatient (CLI) | payer MEDICARE, BC, SELFPAY ==
[2020-10-18 19:48] VITALS: BMI 29.5
[2021-01-01 14:11] LABS: Alanine Aminotransferase 15 IU/L (<50); Albumin 4.2 g/dL (3.5-5.0); Albumin Globulin Ratio 1.7 (1.0-2.8); Alkaline Phosphatase 60 U/L (38-126); Aspartate Aminotransferase 21 IU/L (17-59); BUN Creatinine Ratio 18.8 (6-22); Bilirubin Total 0.5 mg/dL (0.2-1.3); Blood Urea Nitrogen 18 mg/dL (9-20); Calcium 9.6 mg/dL (8.4-10.2); Carbon Dioxide 29 mmol/L (22-32); Chloride 99 mmol/L (98-107); Estimated Glomerular Filt Rate > 60.0 mL/min (>60); Globulin 2.5 g/dL (1.7-4.1); Glucose 94 mg/dL (80-110); HEMOLYSIS < 15 (0-50); Sodium 138 mmol/L (137-145); Total Protein 6.7 g/dL (6.3-8.2)
[2021-01-01 16:07] LABS: Clostridium Difficile Tox PCR Negative for C. diff (Negative)
[2021-01-01 18:35] LABS: Hemoglobin A1C% w Est Avg Glu 4.6 % (4.0-6.0)
== END ==
PROVIDERS: PCP Internal Medicine; Referring Provider Internal Medicine; Visit Provider Internal Medicine
DX: E11.9 Type 2 diabetes mellitus without complications (principal); R19.7 Diarrhea, unspecified; E78.2 Mixed hyperlipidemia
CPT/HCPCS: 36415; 80053; 83036; 87493

== ENCOUNTER → 2021-01-07 13:03 | Outpatient (CLI) | payer MEDICARE, BC, SELFPAY ==
[2020-10-18 19:48] VITALS: BMI 29.5
[2021-01-07 16:08] LABS: Adenovirus F 40/41 Not Detected (Not Detect); Astrovirus Not Detected (Not Detect); Campylobacter Not Detected (Not Detect); Clostridium difficile toxin AB Not Detected (Not Detect); Cryptosporidium Not Detected (Not Detect); Cyclospora cayetanensis Not Detected (Not Detect); Entamoeba histolytica Not Detected (Not Detect); Enteroaggregative E.coli Not Detected (Not Detect); Enteropathogenic E.coli Not Detected (Not Detect); Enterotoxigenic E.coli It/st Not Detected (Not Detect); Giardia lamblia Not Detected (Not Detect); Norovirus GI/GII Not Detected (Not Detect); Plesiomonsa shigelloides Not Detected (Not Detect); Rotavirus A Not Detected (Not Detect); Salmonella Not Detected (Not Detect); Sapovirus Not Detected (Not Detect); Shiga-like toxin-prod E.coli Not Detected (Not Detect); Shigella/Enteroinvasive E.coli Not Detected (Not Detect); Vibrio Not Detected (Not Detect); Vibrio cholerae Not Detected (Not Detect); Yersinia enterocolitica Not Detected (Not Detect)
== END ==
PROVIDERS: PCP Internal Medicine; Referring Provider Internal Medicine; Visit Provider Internal Medicine
DX: R19.7 Diarrhea, unspecified (principal)
CPT/HCPCS: 87507

== ENCOUNTER → 2021-01-28 09:05 | Outpatient (CLI) | payer MEDICARE, BC, SELFPAY ==
[2020-10-18 19:48] VITALS: BMI 29.5
--- NOTE | 2021-01-29 17:27 | DI.NM.S_ITS ---
DATE OF SERVICE: PROCEDURE: Pharmacological perfusion studyl DATE OF STUDY: January 28, 2021 INDICATIONS: Known coronary artery disease, abnormal troponin in the setting of SVT, hyperlipidemia, LAFB, history of NC. RADIOPHARMACEUTICAL: 24.3 millicurie technetium-99m Myoview IV was injected at stress and 11.0 millicurie technetium-99m Myoview IV was injected at rest. CARDIAC STRESS: The patient underwent IV Lexiscan perfusion study under the supervision of an attending staff using standard Lexiscan as per protocol. He remained hemodynamically stable. Edison slight shortness of breath. No anginal pain. Baseline rhythm was sinus with left anterior fascicular block, as well as QS complexes in V1 to V2 and poor R-wave progression. During stress, no new convincing ischemic changes seen. No significant arrhythmias seen. RAW DATA: There was increased subdiaphragmatic activity. GATED STUDY: Stress LV ejection fraction 50 percent with hypokinesis of mid to distal anterior wall and apex. Resting end-diastolic volume 147 mL. TID ratio 1.06, which is within normal limits. Lung/heart ratio 0.31, which is within normal limits. MYOCARDIAL PERFUSION SCAN: Stress supine, resting supine and stress prone images were compared to each other. The stress supine and resting supine images revealed moderate-size, moderate to severely decreased perfusion of mid to distal anterior wall extending into the apex as well as distal anterior septum. In addition to that, there was a large size, severely decreased perfusion of inferior wall extending into the inferolateral wall. During stress prone images, inferior wall and inferior lateral wall defect got significantly improved however mid to distal anterior wall and apical perfusion defect remained persistent. No obvious reversible ischemia. CONCLUSION: This is an abnormal myocardial perfusion study consistent with moderate size infarction involving mid to distal anterior wall, apex and distal anterior septum without any significant reversible ischemia. Diaphragmatic artifact as well as gut artifact responsible for inferior and inferior lateral perfusion defect, which were seen during stress supine and resting supine images and got improved during stress prone images. On raw data, gut shadow seen with increased subdiaphragmatic activity. The patient had a perfusion study in April 2016 and that time also had similar perfusion defect. Mohit Bautista - SHAWNA/humera/miah doc#: [id number]/job#: [id number] dd: 01/29/2021 17:12:00 dt: 01/29/2021 17:21:00 DICTATING MD/COPIES TO: Pietro Suarez MD COPIES MNE: SHMUEL;
== END ==
PROVIDERS: PCP Internal Medicine; Referring Provider Internal Medicine Cardiovascular Disease; Visit Provider Internal Medicine Cardiovascular Disease
DX: R94.39 Abnormal result of other cardiovascular function study (principal); I10 Essential (primary) hypertension; I44.4 Left anterior fascicular block; I25.10 Atherosclerotic heart disease of native coronary artery without angina pectoris; I47.1 Supraventricular tachycardia; E78.5 Hyperlipidemia, unspecified; I25.2 Old myocardial infarction
CPT/HCPCS: 78452; 93017; A9502; J2785

== ENCOUNTER → 2021-01-29 13:02 | Outpatient (CLI) | payer MEDICARE, BC, SELFPAY ==
[2020-10-18 19:48] VITALS: BMI 29.5
[2021-01-29 14:09] LABS: Bacteria Urine None Seen; Culture Indicated Urine Cult Not Indicated; RBC Urine None Seen (0-5/HPF); Squamous Epithelial Cell Urine 1-5 /HPF (0-5/HPF); WBC Urine 1-5/HPF (0-5/HPF)
== END ==
PROVIDERS: PCP Internal Medicine; Referring Provider Internal Medicine; Visit Provider Internal Medicine
DX: R31.9 Hematuria, unspecified (principal)
CPT/HCPCS: 81015

== ENCOUNTER → 2021-04-16 12:21 | Outpatient (CLI) | payer MEDICARE, BC, SELFPAY ==
[2021-04-15 11:52] VITALS: BMI 29.5
[2021-04-17 08:09] LABS: Fecal Immunochemical Test Negative (Negative)
== END ==
PROVIDERS: PCP Internal Medicine; Referring Provider Internal Medicine; Visit Provider Internal Medicine
DX: Z12.11 Encounter for screening for malignant neoplasm of colon (principal)
CPT/HCPCS: 82274

== ENCOUNTER → 2021-07-02 12:07 | Outpatient (CLI) | payer MEDICARE, BC, SELFPAY ==
[2021-04-15 11:52] VITALS: BMI 29.5
[2021-07-02 14:43] LABS: BUN Creatinine Ratio 19.8 (6-22); Blood Urea Nitrogen 19 mg/dL (9-20); Calcium 9.2 mg/dL (8.4-10.2); Carbon Dioxide 33 mmol/L (22-32); Chloride 102 mmol/L (98-107); Estimated Glomerular Filt Rate > 60 mL/min (>60); Glucose 112 mg/dL (80-110); HEMOLYSIS < 15 (0-50); Potassium 4.3 mmol/L (3.4-5.1); Sodium 139 mmol/L (137-145)
[2021-07-02 15:14] LABS: Prostate Specific Antigen 0.292 ng/mL (0.10-4.00)
== END ==
PROVIDERS: PCP Internal Medicine; Referring Provider Specialist; Visit Provider Specialist
DX: N20.0 Calculus of kidney (principal); R97.20 Elevated prostate specific antigen [PSA]; Z85.51 Personal history of malignant neoplasm of bladder
CPT/HCPCS: 36415; 80048; 84153

== ENCOUNTER → 2021-07-02 12:48 | Outpatient (CLI) | payer MEDICARE, BC, SELFPAY ==
[2021-04-15 11:52] VITALS: BMI 29.5
--- NOTE | 2021-07-02 12:50 | DI.CT.S_ITS ---
PROCEDURE: CT ABDOMEN PELVIS WO/W CON INDICATIONS: History of primary bladder cancer/kidney stones TECHNIQUE: Optional 5 mm thick noncontrast images acquired from the diaphragm to the symphysis pubis. After the administration of intravenous contrast, 5 mm thick images acquired from the diaphragm to the symphysis pubis after a 10-minute delay. 2 mm thick coronal and sagittal reformats were then performed of the kidneys and ureters. For radiation dose reduction, the following was used: automated exposure control, adjustment of mA and/or kV according to patient size. COMPARISON: [facility], CT, CT ABDOMEN PELVIS W CON, 11/15/2020, 20:11. [facility], CT, CT ABDOMEN PELVIS W CON, 10/19/2020, 11:38. FINDINGS: Image quality: Excellent. Lung bases: Lung bases are clear. Heart size is normal. At least moderate coronary artery calcification can be seen. Urinary system: On precontrast imaging, there is a nonobstructing right-sided kidney stone that measures approximately 3 mm. Both kidneys are normal in size, without hydronephrosis. No perinephric fat stranding. There is normal bilateral renal enhancement. Renal calyces appear normal in morphology when filled with contrast. Opacified portions of both ureters demonstrate normal caliber. Generalized moderate circumferential bladder wall thickening can be seen, without a focal mass identified. No calcified bladder stones. Other solid organs: Liver is normal in size and enhancement. Gallbladder wall is not thickened. Biliary system is non dilated. Pancreas enhances normally. Spleen is normal in size and enhancement. No adrenal nodules. Peritoneum and bowel: Bowel loops demonstrate normal wall thickness and caliber. No free fluid or air. A normal appendix is incidentally noted. Colonic diverticulosis is seen, without findings of active diverticulitis. Nodes and vessels: No retroperitoneal or mesenteric adenopathy by size criteria. Aorta and inferior vena cava are normal in size. Abdominal wall: No ventral hernias. Pelvis: No pathologic free pelvic fluid. No inguinal hernias or adenopathy. Bones: No suspicious bony lesions. No vertebral body compression fractures. Degenerative changes are seen throughout, which are worst involving the lumbar spine. IMPRESSION: Generalized moderate bladder wall thickening is seen. No focal mass is detected on these images. Nonobstructing right-sided kidney stone seen. Incidental note is made of: At least moderate coronary artery calcification Normal appendix Diverticulosis, without active diverticulitis Dictated by: Tahir Umaña M.D. on 07/02/2021 at 17:15 Approved by: Tahir Umaña M.D. on 07/02/2021 at 17:21
== END ==
PROVIDERS: PCP Internal Medicine; Referring Provider Specialist; Visit Provider Specialist
DX: D09.0 Carcinoma in situ of bladder (principal); N20.0 Calculus of kidney; I25.10 Atherosclerotic heart disease of native coronary artery without angina pectoris; Z85.51 Personal history of malignant neoplasm of bladder; K57.90 Diverticulosis of intestine, part unspecified, without perforation or abscess without bleeding
CPT/HCPCS: 36415; 51798; 52000; 74178; 80048; 81002; 84153; 99214; Q9967

== ENCOUNTER → 2022-07-17 13:22 | Outpatient (CLI) | payer MEDICARE, BC, SELFPAY ==
[2021-04-15 11:52] VITALS: BMI 29.5
[2022-07-18 19:01] LABS: Fecal Immunochemical Test Negative (Negative)
== END ==
PROVIDERS: PCP Internal Medicine; Referring Provider Internal Medicine; Visit Provider Internal Medicine
DX: Z12.11 Encounter for screening for malignant neoplasm of colon (principal)
CPT/HCPCS: 82274

== ENCOUNTER → 2023-03-24 16:43 | Outpatient (CLI) | payer MEDICARE, BC, SELFPAY ==
[2021-04-15 11:52] VITALS: BMI 29.5
[2023-03-24 17:45] LABS: Add Manual Diff / Slide Review NO; Basophils Absolute Auto 0 /uL (0-100); Basophils Percent Auto 0.5 % (0-2); Eosinophils Absolute Auto 0 /uL (0-450); Eosinophils Percent Auto 0.4 % (2-4); Hematocrit 36.8 % (41-53); Hemoglobin 12.7 g/dL (13.5-17.5); Lymphocytes Absolute Auto 1600 /uL (1100-4500); Lymphocytes Percent Auto 16.9 % (25-40); Mean Corpuscular HGB Conc 34.5 % (30-36); Mean Corpuscular Hemoglobin 34.6 PG (26-34); Mean Corpuscular Volume 100.1 fL (80-100); Monocytes Absolute Auto 600 /uL (0-900); Monocytes Percent Auto 6.3 % (3-14); Neutrophils Absolute Auto 7300 /uL (1500-7000); Neutrophils Percent Auto 75.9 % (50-75); Platelet Count 180 X10^3/uL (150-400); Red Blood Cell Count 3.68 X10^6/uL (4.5-5.9); Red Cell Distribution Width 14.7 % (11.6-14.8); White Blood Cell Count 9.6 X10^3/uL (4.5-11.0)
[2023-03-24 18:32] LABS: Alanine Aminotransferase 27 IU/L (<50); Albumin 4.3 g/dL (3.5-5.0); Albumin Globulin Ratio 1.5 (1.0-2.8); Alkaline Phosphatase 56 U/L (38-126); Aspartate Aminotransferase 27 IU/L (17-59); BUN Creatinine Ratio 16.3 (6-22); Bilirubin Total 0.7 mg/dL (0.2-1.3); Blood Urea Nitrogen 17 mg/dL (9-20); Calcium 9.4 mg/dL (8.4-10.2); Carbon Dioxide 26 mmol/L (22-32); Chloride 103 mmol/L (98-107); Estimated Glomerular Filt Rate > 60 mL/min (>60); Globulin 2.8 g/dL (1.7-4.1); Glucose 109 mg/dL (80-110); HEMOLYSIS < 15 (0-50); Potassium 3.6 mmol/L (3.4-5.1); Sodium 137 mmol/L (137-145); Total Protein 7.1 g/dL (6.3-8.2)
[2023-03-25 02:10] LABS: Hemoglobin A1C% w Est Avg Glu 5.5 % (4.0-6.0)
== END ==
PROVIDERS: PCP Internal Medicine; Referring Provider Internal Medicine; Visit Provider Internal Medicine
DX: I48.0 Paroxysmal atrial fibrillation (principal); E11.9 Type 2 diabetes mellitus without complications; I10 Essential (primary) hypertension; E78.2 Mixed hyperlipidemia
CPT/HCPCS: 36415; 80053; 83036; 85025

== ENCOUNTER → 2023-09-22 14:02 | Outpatient (CLI) | payer MEDICARE, BC, SELFPAY ==
[2023-09-22 13:53] VITALS: BMI 29.5
[2023-09-22 14:44] LABS: Add Manual Diff / Slide Review NO; Basophils Absolute Auto 0 /uL (0-100); Basophils Percent Auto 0.4 % (0-2); Eosinophils Absolute Auto 0 /uL (0-450); Eosinophils Percent Auto 0.2 % (2-4); Hematocrit 39.4 % (41-53); Hemoglobin 13.4 g/dL (13.5-17.5); Lymphocytes Absolute Auto 1000 /uL (1100-4500); Lymphocytes Percent Auto 11.8 % (25-40); Mean Corpuscular HGB Conc 34.1 % (30-36); Mean Corpuscular Volume 102.5 fL (80-100); Monocytes Absolute Auto 300 /uL (0-900); Monocytes Percent Auto 4.1 % (3-14); Neutrophils Absolute Auto 7000 /uL (1500-7000); Neutrophils Percent Auto 83.5 % (50-75); Platelet Count 159 X10^3/uL (150-400); Red Blood Cell Count 3.84 X10^6/uL (4.5-5.9); Red Cell Distribution Width 13.6 % (11.6-14.8); White Blood Cell Count 8.3 X10^3/uL (4.5-11.0)
[2023-09-22 14:56] LABS: Erythrocyte Sedimentation Rate 8 MM/HR (0-15)
[2023-09-22 15:07] LABS: Alanine Aminotransferase 28 IU/L (<50); Albumin 4.3 g/dL (3.5-5.0); Alkaline Phosphatase 52 U/L (38-126); Aspartate Aminotransferase 27 IU/L (17-59); BUN Creatinine Ratio 18.4 (6-22); Bilirubin Total 0.7 mg/dL (0.2-1.3); Blood Urea Nitrogen 19 mg/dL (9-20); C-Reactive Protein Quant < 0.5 mg/dL (<1.0); Calcium 9.5 mg/dL (8.4-10.2); Carbon Dioxide 30 mmol/L (22-32); Chloride 103 mmol/L (98-107); Estimated Glomerular Filt Rate > 60 mL/min (>60); Globulin 2.2 g/dL (1.7-4.1); Glucose 170 mg/dL (80-110); HEMOLYSIS < 15 (0-50); Sodium 140 mmol/L (137-145); Total Protein 6.5 g/dL (6.3-8.2)
[2023-09-22 15:32] LABS: TSH w/ Reflex to FT4 0.53 uIU/mL (0.47-4.68)
[2023-09-22 16:07] LABS: Folate > 20.0 ng/mL (2.76-20.0)
[2023-09-22 19:45] LABS: Vitamin B12 875 pg/mL (239-931)
== END ==
PROVIDERS: PCP Internal Medicine; Referring Provider Internal Medicine; Visit Provider Internal Medicine
DX: I10 Essential (primary) hypertension (principal); E78.2 Mixed hyperlipidemia; I48.0 Paroxysmal atrial fibrillation; D64.9 Anemia, unspecified
CPT/HCPCS: 36415; 80053; 82607; 82746; 84443; 85025; 85651; 86140

== ENCOUNTER → 2023-12-31 14:04 | Outpatient (CLI) | payer MEDICARE, BC, SELFPAY ==
[2023-09-22 13:53] VITALS: BMI 29.5
[2023-12-31 14:33] LABS: Estimated Glomerular Filt Rate > 60 mL/min (>60)
== END ==
LOC: LAB 14:05
PROVIDERS: PCP Internal Medicine; Referring Provider Urology; Visit Provider Urology
DX: C67.9 Malignant neoplasm of bladder, unspecified (principal)
CPT/HCPCS: 36415; 82565

== ENCOUNTER → 2024-03-03 | Outpatient (CLI) | payer MEDICARE, BC, SELFPAY ==
[2023-09-22 13:53] VITALS: BMI 29.5
--- NOTE | 2024-03-03 16:06 | DI.RAD.S_ITS ---
PROCEDURE: XR CHEST 2V INDICATIONS: chest pain TECHNIQUE: 2 views of the chest were acquired. COMPARISON: [facility], CR, XR CHEST 1V, 11/15/2020, 17:27. FINDINGS: Surgical changes and devices: None. Lungs and pleura: Bilateral lower lung alveolar opacities, right more than left. Probable small right pleural effusion. Perihilar interstitial thickening bilaterally. Mediastinum: Normal cardiomediastinal contour. Mildly prominent central venous structures. Bones and chest wall: No suspicious bony abnormalities. Soft tissues appear unremarkable. IMPRESSION: Central venous and interstitial congestion. Mild bilateral infrahilar pulmonary edema. Underlying infection cannot be excluded. Dictated by: Shirley Smith M.D. on 03/03/2024 at 18:04 Approved by: Shirley Smith M.D. on 03/03/2024 at 18:06
[2024-03-03 17:40] LABS: Add Manual Diff / Slide Review NO; Basophils Absolute Auto 0 /uL (0-100); Basophils Percent Auto 0.4 % (0-2); Eosinophils Absolute Auto 0 /uL (0-450); Eosinophils Percent Auto 0.3 % (2-4); Hematocrit 40.3 % (41-53); Hemoglobin 13.6 g/dL (13.5-17.5); Lymphocytes Absolute Auto 1900 /uL (1100-4500); Mean Corpuscular HGB Conc 33.9 % (30-36); Mean Corpuscular Hemoglobin 34.8 PG (26-34); Mean Corpuscular Volume 102.7 fL (80-100); Monocytes Absolute Auto 500 /uL (0-900); Monocytes Percent Auto 5.7 % (3-14); Neutrophils Absolute Auto 6200 /uL (1500-7000); Neutrophils Percent Auto 71.6 % (50-75); Platelet Count 188 X10^3/uL (150-400); Red Blood Cell Count 3.92 X10^6/uL (4.5-5.9); Red Cell Distribution Width 13.4 % (11.6-14.8); White Blood Cell Count 8.6 X10^3/uL (4.5-11.0)
[2024-03-03 18:13] LABS: Alanine Aminotransferase 24 IU/L (<50); Albumin 4.5 g/dL (3.5-5.0); Albumin Globulin Ratio 1.8 (1.0-2.8); Alkaline Phosphatase 73 U/L (38-126); Aspartate Aminotransferase 30 IU/L (17-59); BUN Creatinine Ratio 18.9 (6-22); Bilirubin Total 0.7 mg/dL (0.2-1.3); Blood Urea Nitrogen 23 mg/dL (9-20); Calcium 8.9 mg/dL (8.4-10.2); Carbon Dioxide 27 mmol/L (22-32); Chloride 106 mmol/L (98-107); Estimated Glomerular Filt Rate > 60 mL/min (>60); Globulin 2.5 g/dL (1.7-4.1); Glucose 114 mg/dL (80-110); HEMOLYSIS < 15 (0-50); Potassium 3.8 mmol/L (3.4-5.1); Sodium 141 mmol/L (137-145)
== END ==
PROVIDERS: PCP Internal Medicine; Referring Provider Internal Medicine; Visit Provider Internal Medicine
DX: J81.1 Chronic pulmonary edema (principal); R07.9 Chest pain, unspecified; E03.9 Hypothyroidism, unspecified; I10 Essential (primary) hypertension; E11.9 Type 2 diabetes mellitus without complications; I25.10 Atherosclerotic heart disease of native coronary artery without angina pectoris; E78.2 Mixed hyperlipidemia; D64.9 Anemia, unspecified; R09.89 Other specified symptoms and signs involving the circulatory and respiratory systems
CPT/HCPCS: 36415; 71046; 80053; 84443; 85025

== ENCOUNTER → 2024-03-10 16:12 | Outpatient (CLI) | payer MEDICARE, BC, SELFPAY ==
[2023-09-22 13:53] VITALS: BMI 29.5
--- NOTE | 2024-03-10 16:13 | DI.ECHO.S_ITS ---
[facility] +---------+ Hospital : : [address] : : [place] : : [id number] : : Phone: [phone] Echocardiogram Report + + :Name: MELI SAEED Study Date: 03/10/2024 Height: 64 in : :Hospital ReadingLocation: Weight: 262 lb : : Gender: Male BSA: 2.2 m2 : :: 1950 Age: 73 yrs BP: 171/100 mmHg: :Reason For Study: CAD : :Ordering Physician: ALFRED, : :ELROY Santillan Performed By: Ramone Paz : :Referring: ELROY SIMON : + + Interpretation Summary The study quality was technically difficult. Left ventricular size is at the upper limits of normal. Left ventricular wall thickness is mildly increased. The ejection fraction is estimated to be 45-50%. Previous LVEF 60 to 65%. Technically difficult study. Poor visualization of endocardium however suspect distal inferior wall, extending into the distal inferior lateral wall, distal septum and apical hypokinesis. No significant change in wall motion abnormalities. The right ventricle is normal in size and function. No obvious PFO seen. There is moderate mitral regurgitation. Compared to the prior echo study, there has been an increase in the severity of mitral regurgitation. There is mild aortic regurgitation. There is trace tricuspid regurgitation. The right ventricular systolic pressure is estimated to be at least 36 mmHg based on an estimated right atrial pressure of 3 mm Hg. Procedure: A two-dimensional transthoracic echocardiogram with color flow and Doppler was performed. Comparison is made with the echocardiogram of 02/28/2022. The study quality was technically difficult. The patient was in normal sinus rhythm during the exam. Left Ventricle: Left ventricular wall thickness is mildly increased. Left ventricular size is at the upper limits of normal. There is no thrombus. The ejection fraction is estimated to be 45-50%. Technically difficult study. Poor visualization of endocardium however suspect distal inferior wall, extending into the distal inferior lateral wall, distal septum and apical hypokinesis. No significant change in wall motion abnormalities. MV E/A: 0.72 Med Peak E' Sarabjit: 4.1 cm/sec E/E' med: 19.3. Right Ventricle: The right ventricle is normal in size and function. Atria: The left atrium is mildly dilated. The right atrium is mildly dilated. There is no Doppler evidence for an interatrial shunt. Mitral Valve: There is mild mitral annular calcification. The mitral valve leaflets appear mildly thickened, but open well. There is moderate mitral regurgitation. Compared to the prior echo study, there has been an increase in the severity of mitral regurgitation. Aortic Valve: The aortic valve is trileaflet. The aortic valve opens well. There is mild aortic regurgitation. Tricuspid Valve: There is trace tricuspid regurgitation. The right ventricular systolic pressure is estimated to be at least 36 mmHg based on an estimated right atrial pressure of 3 mm Hg. Pulmonic Valve: The pulmonic valve leaflets are thin and pliable; valve motion is normal. There is no pulmonic valvular regurgitation. Great Vessels: The aortic root is normal size. The dimensions of the ascending aorta are normal. The pulmonary artery is normal size. The IVC is of normal diameter and collapses greater than 50% with a sniff. This suggests a low right atrial pressure of 3 mm Hg. Pericardium/ Pleura There is no pericardial effusion. There is no pleural effusion. MMode/2D Measurements & Calculations LVIDd: 5.7 cm LVOT diam: 2.0 cm LVIDs: 3.9 cm Ao root diam: 3.4 cm FS: 30.9 % asc Aorta Diam: 3.2 cm EPSS: 1.1 cm IVSd: 1.3 cm LVPWd: 1.3 cm LV davis. diameter/BSA (cm/m^2): 2.6 LV sys. diameter/BSA (cm/m^2): 1.8 LA A2 area: 22.9 cm2 RA long axis: 5.6 cm LA A4 area: 20.2 cm2 RA area: 17.9 cm2 LA length (vol): 5.4 cm RA vol: 48.3 ml LA vol: 72.1 ml RA : 22.0 ml/m2 LA vol index: 32.8 ml/m2 IVC diam: 1.5 cm RVD1 (basal): 3.4 cm RVD2 (mid): 2.7 cm TAPSE: 3.2 cm Doppler Measurements & Calculations Ao V2 max: 158.5 cm/sec LVOT Max Sarabjit: 119.8 cm/sec Ao V2 mean: 110.4 cm/sec LV V1 max P.7 mmHg Ao max P.0 mmHg LV V1 VTI: 29.3 cm Ao mean P.4 mmHg OLEGARIO(I,D): 2.9 cm2 Ao V2 VTI: 32.8 cm OLEGARIO(V,D): 2.5 cm2 sev ratio: 0.89 OLEGARIO indexed to BSA (cm^2/m^2): 1.3 MV E max sarabjit: 79.9 cm/sec TR max sarabjit: 287.5 cm/sec MV A max sarabjit: 110.3 cm/sec TR max P.1 mmHg MV E/A: 0.72 PA V2 max: 77.5 cm/sec Med Peak E' Sarabjit: 4.1 cm/sec PA V2 mean: 49.6 cm/sec E/E' med: 19.3 PA mean P.1 mmHg Lat Peak E' Sarabjit: 4.3 cm/sec PA pr(Accel): 25.9 mmHg E/E' lat: 18.8 E/e' average: 19.0 MV dec time: 0.28 sec SV(LVOT): 95.9 ml Reading Physician:01:34 PM
== END ==
PROVIDERS: PCP Internal Medicine; Referring Provider Internal Medicine; Visit Provider Internal Medicine
DX: I25.10 Atherosclerotic heart disease of native coronary artery without angina pectoris (principal); I10 Essential (primary) hypertension; I08.0 Rheumatic disorders of both mitral and aortic valves; E11.9 Type 2 diabetes mellitus without complications; E78.2 Mixed hyperlipidemia; D64.9 Anemia, unspecified; E03.9 Hypothyroidism, unspecified
CPT/HCPCS: 93306

== ENCOUNTER → 2024-03-22 14:14 | Outpatient (CLI) | payer MEDICARE, BC, SELFPAY ==
[2023-09-22 13:53] VITALS: BMI 29.5
[2024-03-22 15:27] LABS: BUN Creatinine Ratio 19.8 (6-22); Blood Urea Nitrogen 21 mg/dL (9-20); Calcium 9.4 mg/dL (8.4-10.2); Carbon Dioxide 28 mmol/L (22-32); Chloride 103 mmol/L (98-107); Estimated Glomerular Filt Rate > 60 mL/min (>60); Glucose 145 mg/dL (80-110); HEMOLYSIS < 15 (0-50); Potassium 4.8 mmol/L (3.4-5.1); Sodium 138 mmol/L (137-145)
[2024-03-22 15:34] LABS: NT-proBNP (BNP-Adult 18+) 77 pg/mL (<125)
== END ==
PROVIDERS: PCP Internal Medicine; Referring Provider Internal Medicine Cardiovascular Disease; Visit Provider Internal Medicine Cardiovascular Disease
DX: I50.22 Chronic systolic (congestive) heart failure (principal); E78.00 Pure hypercholesterolemia, unspecified
CPT/HCPCS: 36415; 80048; 83880

== ENCOUNTER → 2024-04-11 11:01 | Outpatient (CLI) | payer MEDICARE, BC, SELFPAY ==
[2023-09-22 13:53] VITALS: BMI 29.5
[2024-04-11 11:39] LABS: Add Manual Diff / Slide Review NO; Basophils Absolute Auto 100 /uL (0-100); Basophils Percent Auto 0.8 % (0-2); Eosinophils Absolute Auto 100 /uL (0-450); Eosinophils Percent Auto 0.6 % (2-4); Hematocrit 37.4 % (41-53); Hemoglobin 12.7 g/dL (13.5-17.5); Lymphocytes Absolute Auto 1400 /uL (1100-4500); Lymphocytes Percent Auto 10.3 % (25-40); Mean Corpuscular HGB Conc 33.9 % (30-36); Mean Corpuscular Hemoglobin 34.7 PG (26-34); Mean Corpuscular Volume 102.2 fL (80-100); Monocytes Absolute Auto 800 /uL (0-900); Monocytes Percent Auto 6.2 % (3-14); Neutrophils Absolute Auto 11000 /uL (1500-7000); Neutrophils Percent Auto 82.1 % (50-75); Platelet Count 190 X10^3/uL (150-400); Red Blood Cell Count 3.66 X10^6/uL (4.5-5.9); Red Cell Distribution Width 13.6 % (11.6-14.8); White Blood Cell Count 13.4 X10^3/uL (4.5-11.0)
[2024-04-11 11:52] LABS: Alanine Aminotransferase 27 IU/L (<50); Albumin 4.2 g/dL (3.5-5.0); Albumin Globulin Ratio 1.9 (1.0-2.8); Alkaline Phosphatase 73 U/L (38-126); Aspartate Aminotransferase 27 IU/L (17-59); BUN Creatinine Ratio 20.2 (6-22); Bilirubin Total 0.6 mg/dL (0.2-1.3); Blood Urea Nitrogen 20 mg/dL (9-20); Calcium 9.1 mg/dL (8.4-10.2); Carbon Dioxide 26 mmol/L (22-32); Chloride 103 mmol/L (98-107); Creatine Kinase 63 U/L (55-170); Estimated Glomerular Filt Rate > 60 mL/min (>60); Globulin 2.2 g/dL (1.7-4.1); Glucose 145 mg/dL (80-110); HEMOLYSIS < 15 (0-50); Potassium 4.3 mmol/L (3.4-5.1); Sodium 137 mmol/L (137-145); Total Protein 6.4 g/dL (6.3-8.2)
[2024-04-11 12:03] LABS: Troponin I < 0.012 ng/mL (0.01-0.034)
== END ==
PROVIDERS: PCP Internal Medicine; Referring Provider Internal Medicine; Visit Provider Internal Medicine
DX: I10 Essential (primary) hypertension (principal); E78.2 Mixed hyperlipidemia; I25.10 Atherosclerotic heart disease of native coronary artery without angina pectoris
CPT/HCPCS: 36415; 80053; 82550; 84484; 85025

== ENCOUNTER → 2024-04-27 14:32 | Outpatient (CLI) | payer MEDICARE, BC, SELFPAY ==
[2023-09-22 13:53] VITALS: BMI 29.5
[2024-04-27 15:26] LABS: Add Manual Diff / Slide Review NO; Basophils Absolute Auto 0 /uL (0-100); Basophils Percent Auto 0.5 % (0-2); Eosinophils Absolute Auto 100 /uL (0-450); Eosinophils Percent Auto 0.9 % (2-4); Hematocrit 37.3 % (41-53); Hemoglobin 12.8 g/dL (13.5-17.5); Lymphocytes Absolute Auto 1300 /uL (1100-4500); Lymphocytes Percent Auto 19.2 % (25-40); Mean Corpuscular HGB Conc 34.2 % (30-36); Mean Corpuscular Hemoglobin 34.7 PG (26-34); Mean Corpuscular Volume 101.3 fL (80-100); Monocytes Absolute Auto 400 /uL (0-900); Monocytes Percent Auto 5.4 % (3-14); Neutrophils Absolute Auto 4900 /uL (1500-7000); Platelet Count 159 X10^3/uL (150-400); Red Blood Cell Count 3.68 X10^6/uL (4.5-5.9); Red Cell Distribution Width 13.7 % (11.6-14.8); White Blood Cell Count 6.6 X10^3/uL (4.5-11.0)
[2024-04-27 15:41] LABS: INR 1.1 (0.9-1.3); Prothrombin Time 12.4 SECONDS (9.4-12.5)
[2024-04-27 15:48] LABS: BUN Creatinine Ratio 23.4 (6-22); Blood Urea Nitrogen 22 mg/dL (9-20); Calcium 9.3 mg/dL (8.4-10.2); Carbon Dioxide 26 mmol/L (22-32); Chloride 104 mmol/L (98-107); Estimated Glomerular Filt Rate > 60 mL/min (>60); Glucose 167 mg/dL (80-110); HEMOLYSIS 28 (0-50); Potassium 3.9 mmol/L (3.4-5.1); Sodium 140 mmol/L (137-145)
== END ==
PROVIDERS: PCP Internal Medicine; Referring Provider Nurse Practitioner Acute Care; Visit Provider Nurse Practitioner Acute Care
DX: I25.10 Atherosclerotic heart disease of native coronary artery without angina pectoris (principal); R07.9 Chest pain, unspecified
CPT/HCPCS: 36415; 80048; 85025; 85610

== ENCOUNTER → 2024-06-07 13:38 | Outpatient (CLI) | payer MEDICARE, BC, SELFPAY ==
[2023-09-22 13:53] VITALS: BMI 29.5
--- NOTE | 2024-06-07 13:41 | DI.ECHO.S_ITS ---
[facility] +---------+ Hospital : : [address] : : [place] : : [id number] : : Phone: [phone] Echocardiogram Report + + :Name: MELI SAEED Study Date: 06/07/2024 Height: 64 in : :Hospital ReadingLocation: Weight: 267 lb : : Gender: Male BSA: 2.2 m2 : :: 1950 Age: 74 yrs BP: 171/97 mmHg: :Reason For Study: SYSTOLIC HEART FAILURE : :Ordering Physician: TANI, : :DELFINO Performed By: Ramone Paz : :Referring: DELFINO FREIRE : + + Interpretation Summary The left ventricle is normal in size. The ejection fraction is estimated to be 50-55%. Previous LV ejection fraction 45 to 50% with distal inferior wall, distal inferior lateral, distal septum and apical hypokinesis. In this study LV ejection fraction 50 to 55% with improvement in wall motion abnormalities. The right ventricle is grossly normal size. The right ventricular systolic function is normal. There is mild mitral regurgitation. Compared to the prior echo study, there has been a decrease in the severity of mitral regurgitation. Previously moderate MR. There is trace tricuspid regurgitation. The right ventricular systolic pressure is estimated to be at least 38 mmHg based on an estimated right atrial pressure of 3 mm Hg. Previously 36 mmHg. Procedure: A two-dimensional transthoracic echocardiogram with color flow and Doppler was performed. The study quality was technically good. Comparison is made with the echocardiogram of 03/10/2024. The patient was in normal sinus rhythm during the exam. Left Ventricle: The left ventricle is normal in size. Left ventricular wall thickness is mildly increased. There is no thrombus. The ejection fraction is estimated to be 50-55%. There are no focal wall motion abnormalities. MV E/A: 1.1 Med Peak E' Sarabjit: 5.2 cm/sec E/E' med: 18.4. Right Ventricle: The right ventricle is grossly normal size. The right ventricular systolic function is normal. Atria: The left atrium is mildly dilated. There has been no significant change since the previous study. Right atrial size is normal. There is no Doppler evidence for an interatrial shunt. Mitral Valve: There is mild mitral annular calcification. The mitral valve leaflets appear borderline thickened, but open well. There is mild mitral regurgitation. Compared to the prior echo study, there has been a decrease in the severity of mitral regurgitation. Aortic Valve: The aortic valve is not well visualized. The aortic valve is grossly normal. There is no aortic valve stenosis. There is trace aortic regurgitation. Tricuspid Valve: The tricuspid valve is not well visualized, but is grossly normal. There is trace tricuspid regurgitation. The right ventricular systolic pressure is estimated to be at least 38 mmHg based on an estimated right atrial pressure of 3 mm Hg. Compared to the prior echo exam, there has been no change in the severity of pulmonary hypertension. Pulmonic Valve: The pulmonic valve is not well visualized. There is no pulmonic valvular regurgitation. Great Vessels: The aortic root is normal size. The dimensions of the ascending aorta are normal. The pulmonary artery is normal size. The IVC is of normal diameter and collapses greater than 50% with a sniff. This suggests a low right atrial pressure of 3 mm Hg. Pericardium/ Pleura There is no pericardial effusion. There is no pleural effusion. MMode/2D Measurements & Calculations LVIDd: 5.7 cm LVOT diam: 2.1 cm LVIDs: 4.1 cm Ao root diam: 3.4 cm FS: 28.1 % asc Aorta Diam: 3.4 cm EPSS: 1.3 cm IVSd: 1.3 cm LVPWd: 1.2 cm LV davis. diameter/BSA (cm/m^2): 2.6 LV sys. diameter/BSA (cm/m^2): 1.9 LA A2 area: 19.9 cm2 RA long axis: 4.9 cm LA A4 area: 25.4 cm2 RA area: 14.0 cm2 LA length (vol): 5.7 cm RA vol: 33.7 ml LA vol: 75.3 ml RA : 15.2 ml/m2 LA vol index: 34.0 ml/m2 IVC diam: 1.6 cm TAPSE: 2.8 cm Doppler Measurements & Calculations Ao V2 max: 167.8 cm/sec LVOT Max Sarabjit: 109.8 cm/sec Ao V2 mean: 124.4 cm/sec LV V1 max P.8 mmHg Ao max P.3 mmHg LV V1 VTI: 32.7 cm Ao mean P.6 mmHg OLEGARIO(I,D): 3.0 cm2 Ao V2 VTI: 39.3 cm OLEGARIO(V,D): 2.3 cm2 sev ratio: 0.83 OLEGARIO indexed to BSA (cm^2/m^2): 1.3 MV E max sarabjit: 95.6 cm/sec TR max sarabjit: 295.4 cm/sec MV A max sarabjit: 89.3 cm/sec TR max P.9 mmHg MV E/A: 1.1 PA V2 max: 107.7 cm/sec Med Peak E' Sarabjit: 5.2 cm/sec PA V2 mean: 73.4 cm/sec E/E' med: 18.4 PA mean P.4 mmHg Lat Peak E' Sarabjit: 8.9 cm/sec PA pr(Accel): 44.7 mmHg E/E' lat: 10.8 E/e' average: 14.6 MV dec time: 0.18 sec SV(LVOT): 116.9 ml Reading Physician:12:24 PM
[2024-06-07 16:08] LABS: Cholesterol 110 mg/dL (140-199); HDL Cholesterol 43 mg/dL (40-60); LDL Cholesterol Calculated 55 mg/dL (<100); Triglycerides 60 mg/dL (35-150)
== END ==
PROVIDERS: PCP Internal Medicine; Referring Provider Internal Medicine Cardiovascular Disease; Visit Provider Internal Medicine Cardiovascular Disease
DX: I34.81 Nonrheumatic mitral (valve) annulus calcification (principal); I34.0 Nonrheumatic mitral (valve) insufficiency; I50.22 Chronic systolic (congestive) heart failure; E78.00 Pure hypercholesterolemia, unspecified
CPT/HCPCS: 36415; 80061; 93306

== ENCOUNTER → 2024-06-17 14:00 | Outpatient (CLI) | payer MEDICARE, BC, SELFPAY ==
[2023-09-22 13:53] VITALS: BMI 29.5
--- NOTE | 2024-06-17 14:03 | DI.RAD.S_ITS ---
PROCEDURE: XR CHEST 2V INDICATIONS: cough TECHNIQUE: 2 views of the chest were acquired. COMPARISON: [facility], CR, XR CHEST 2V, 03/03/2024, 16:12. FINDINGS: Surgical changes and devices: None. Lungs and pleura: Small right pleural effusion. The left lung base is clear. Mild diffuse increased prominence of the pulmonary vasculature. No evidence of focal consolidation. No evidence of pneumothorax.. Mediastinum: Mediastinal contours are normal. Heart size is normal. Bones and chest wall: No suspicious bony abnormalities. Soft tissues appear unremarkable. IMPRESSION: Small right pleural effusion and mild diffuse increased prominence of the pulmonary vasculature. Dictated by: Eduin Dove M.D. on 06/19/2024 at 0:41 Approved by: Eduin Dove M.D. on 06/19/2024 at 0:41
== END ==
PROVIDERS: PCP Internal Medicine; Referring Provider Internal Medicine; Visit Provider Internal Medicine
DX: J90 Pleural effusion, not elsewhere classified (principal); R05.9 Cough, unspecified
CPT/HCPCS: 0241U; 71046

== ENCOUNTER → 2024-06-17 14:35 | Outpatient (CLI) | payer MEDICARE, BC, SELFPAY ==
[2023-09-22 13:53] VITALS: BMI 29.5
[2024-06-17 15:35] LABS: Influenza A - CEPHEID Flu A NEGATIVE (NEGATIVE); Influenza B - CEPHEID Flu B NEGATIVE (NEGATIVE); Respiratory Syncytial Virus Negative (Negative)
[2024-06-17 15:37] LABS: COVID-19 CEPHEID 4-PLEX PCR Negative (Negative)
== END ==
LOC: LAB 14:36
PROVIDERS: PCP Internal Medicine; Visit Provider Internal Medicine
DX: R05.9 Cough, unspecified (principal)
CPT/HCPCS: 0241U

== ENCOUNTER → 2024-06-23 13:58 | Outpatient (CLI) | payer MEDICARE, BC, SELFPAY ==
[2023-09-22 13:53] VITALS: BMI 29.5
--- NOTE | 2024-06-23 14:01 | DI.CT.S_ITS ---
PROCEDURE: CT IVP A/P W/WO INDICATIONS: 73 y/o M w/ bladder cancer, please eval upper tracts TECHNIQUE: Optional 5 mm thick noncontrast images acquired from the diaphragm to the symphysis pubis. After the administration of intravenous contrast, 5 mm thick images acquired from the diaphragm to the symphysis pubis after a 10-minute delay. 2 mm thick coronal and sagittal reformats were then performed of the kidneys and ureters. For radiation dose reduction, the following was used: automated exposure control, adjustment of mA and/or kV according to patient size. COMPARISON: [facility], CT, CT ABDOMEN PELVIS WO/W CON, 07/02/2021, 15:45. FINDINGS: Image quality: Diagnostic. Kidneys and Ureters: Both kidneys are normal in size, without hydronephrosis or nephrolithiasis. No perinephric fat stranding. There is normal bilateral renal enhancement. Renal calyces appear normal in morphology when filled with contrast. Opacified portions of both ureters demonstrate normal caliber Bladder: Mild circumferential bladder wall thickening. No calcified bladder stones. OTHER: Lower chest: Unremarkable. Liver: No solid mass. Gallbladder: No radiopaque gallstones or wall thickening. Biliary ducts: No biliary dilation. Pancreas: No ductal dilation. Spleen: Size is within normal limits. Adrenal Glands: No adrenal nodules. Stomach and Bowel: Multiple diverticula are seen in the colon without signs of acute diverticulitis. Normal appendix. Small bowel loops and stomach are unremarkable. Peritoneum: No abnormal intraperitoneal fluid. No free air. Ventral Wall: No hernia. Abdominal Nodes: No retroperitoneal or mesenteric adenopathy by size criteria. Vessels: Aorta and inferior vena cava are normal in size. PELVIS: Pelvic Organs: Unremarkable. Pelvic Nodes: No enlarged lymph nodes. Miscellaneous: No inguinal hernias are seen. Bones: No aggressive osseous abnormality. Partial osseous bridging across the sacroiliac joints. Multilevel degenerative changes in the spine. IMPRESSION: 1. No nephrolithiasis or filling defects within the opacified renal collecting system or ureters. 2. Mild circumferential bladder wall thickening without focal masslike thickening. 3. No significant lymphadenopathy in the abdomen or pelvis. Approved by: Edgar Madison M.D. on 06/23/2024 at 21:05
[2024-06-23 14:25] LABS: Estimated Glomerular Filt Rate > 60 mL/min (>60)
== END ==
PROVIDERS: PCP Internal Medicine; Referring Provider Internal Medicine; Visit Provider Urology
DX: C67.9 Malignant neoplasm of bladder, unspecified (principal); K57.90 Diverticulosis of intestine, part unspecified, without perforation or abscess without bleeding
CPT/HCPCS: 36415; 74178; 82565; Q9967

== ENCOUNTER 2024-08-04 14:15 | Outpatient (RCR) | payer MEDICARE, BC, SELFPAY ==
[2023-09-22 13:53] VITALS: BMI 29.5
== END 2024-08-04 16:15 ==
LOC: CAR 14:15
PROVIDERS: PCP Internal Medicine; Referring Provider Internal Medicine Interventional Cardiology; Visit Provider Internal Medicine Interventional Cardiology
DX: Z95.5 Presence of coronary angioplasty implant and graft (principal)
CPT/HCPCS: 93798

== ENCOUNTER → 2024-08-16 15:35 | Outpatient (CLI) | payer MEDICARE, BC, SELFPAY ==
[2023-09-22 13:53] VITALS: BMI 29.5
[2024-08-16 18:24] LABS: Blood Urea Nitrogen 29 mg/dL (9-20); Calcium 8.9 mg/dL (8.4-10.2); Carbon Dioxide 28 mmol/L (22-32); Chloride 102 mmol/L (98-107); Estimated Glomerular Filt Rate > 60 mL/min (>60); Glucose 150 mg/dL (70-99); HEMOLYSIS < 15 (0-50); Magnesium 1.7 mg/dL (1.6-2.3); Potassium 3.8 mmol/L (3.4-5.1); Sodium 140 mmol/L (137-145)
== END ==
PROVIDERS: PCP Internal Medicine; Referring Provider Internal Medicine; Visit Provider Internal Medicine
DX: I10 Essential (primary) hypertension (principal)
CPT/HCPCS: 36415; 80048; 83735

== ENCOUNTER → 2024-08-29 16:39 | Outpatient (CLI) | payer MEDICARE, BC, SELFPAY ==
[2023-09-22 13:53] VITALS: BMI 29.5
[2024-08-29 17:04] LABS: Add Manual Diff / Slide Review NO; Hematocrit 37.2 % (41-53); Hemoglobin 12.7 g/dL (13.5-17.5); Lymphocytes Absolute Auto 1200 /uL (1100-4500); Mean Corpuscular HGB Conc 34.1 % (30-36); Mean Corpuscular Hemoglobin 34.5 PG (26-34); Mean Corpuscular Volume 101.3 fL (80-100); Platelet Count 175 X10^3/uL (150-400)
[2024-08-29 17:20] LABS: Alanine Aminotransferase 29 IU/L (<50); Albumin 4.4 g/dL (3.5-5.0); Albumin Globulin Ratio 2.0 (1.0-2.8); Alkaline Phosphatase 72 U/L (38-126); Blood Urea Nitrogen 24 mg/dL (9-20); Calcium 9.7 mg/dL (8.4-10.2); Carbon Dioxide 27 mmol/L (22-32); Chloride 103 mmol/L (98-107); Estimated Glomerular Filt Rate > 60 mL/min (>60); Globulin 2.2 g/dL (1.7-4.1); Glucose 185 mg/dL (70-99); HEMOLYSIS < 15 (0-50); Magnesium 1.7 mg/dL (1.6-2.3); Potassium 4.3 mmol/L (3.4-5.1); Sodium 139 mmol/L (137-145); Total Protein 6.6 g/dL (6.3-8.2)
== END ==
PROVIDERS: PCP Internal Medicine; Referring Provider Internal Medicine; Visit Provider Internal Medicine
DX: R55 Syncope and collapse (principal); I10 Essential (primary) hypertension
CPT/HCPCS: 36415; 80053; 83735; 84146; 85025

== ENCOUNTER → 2024-09-01 15:11 | Outpatient (CLI) | payer MEDICARE, BC, SELFPAY ==
[2023-09-22 13:53] VITALS: BMI 29.5
--- NOTE | 2024-09-19 12:31 | CR.UO ---
[place] Report: Early this morning, zio report noted to have MD notification. Report uploaded and sent to ordering doctor; Dr. Hudson verbally notified. At 1230, irhythm called to report [facility] and pauses.
== END ==
LOC: CAR 15:12
PROVIDERS: PCP Internal Medicine; Referring Provider Internal Medicine; Visit Provider Internal Medicine
DX: I10 Essential (primary) hypertension (principal); R55 Syncope and collapse
CPT/HCPCS: 93242

== ENCOUNTER → 2024-12-13 13:14 | Outpatient (CLI) | payer MEDICARE, BC, SELFPAY ==
[2023-09-22 13:53] VITALS: BMI 29.5
--- NOTE | 2024-12-13 13:16 | DI.RAD.S_ITS ---
PROCEDURE: XR LUMBAR SPINE MIN 4V INDICATIONS: BACK PAIN TECHNIQUE: 5 views of the lumbar spine were acquired, including bilateral oblique views. COMPARISON: None. FINDINGS: Bones: 5 nonrib-bearing vertebrae are present. Minimal dextrocurvature. Straightening of the normal lumbar lordosis. Decreased osseous mineralization. No vertebral body compression fractures. No suspicious bony lesions. There is multilevel facet arthropathy, worse at L4-5 and L5-S1. Multilevel disc height loss with degenerative endplate changes and spurring is present. Soft tissues: Overlying bowel gas pattern is normal. No suspicious soft tissue calcifications. Atherosclerotic vascular calcifications. Oblique images: No pars defects. IMPRESSION: Severe degenerative changes of the lumbar spine. Dictated by: James Herman M.D. on 12/13/2024 at 14:45 Approved by: James Herman M.D. on 12/13/2024 at 14:46
== END ==
PROVIDERS: PCP Internal Medicine; Referring Provider Physical Medicine & Rehabilitation; Visit Provider Physical Medicine & Rehabilitation
DX: M47.816 Spondylosis without myelopathy or radiculopathy, lumbar region (principal); M47.817 Spondylosis without myelopathy or radiculopathy, lumbosacral region; M54.9 Dorsalgia, unspecified
CPT/HCPCS: 72110

== ENCOUNTER → 2025-01-02 13:59 | Outpatient (CLI) | payer MEDICARE, BC, SELFPAY ==
[2023-09-22 13:53] VITALS: BMI 29.5
== END ==
PROVIDERS: PCP Internal Medicine; Visit Provider Urology
DX: R39.9 Unspecified symptoms and signs involving the genitourinary system (principal)
CPT/HCPCS: 87086

== ENCOUNTER → 2025-01-09 11:01 | Outpatient (CLI) | payer MEDICARE, BC, SELFPAY ==
[2023-09-22 13:53] VITALS: BMI 29.5
[2025-01-09 12:24] LABS: Alanine Aminotransferase 24 IU/L (<50); Albumin 4.0 g/dL (3.5-5.0); Albumin Globulin Ratio 1.5 (1.0-2.8); Alkaline Phosphatase 73 U/L (38-126); Blood Urea Nitrogen 19 mg/dL (9-20); Calcium 9.1 mg/dL (8.4-10.2); Carbon Dioxide 24 mmol/L (22-32); Chloride 105 mmol/L (98-107); Estimated Glomerular Filt Rate > 60 mL/min (>60); Globulin 2.6 g/dL (1.7-4.1); Glucose 145 mg/dL (70-99); HEMOLYSIS < 15 (0-50); Potassium 3.1 mmol/L (3.4-5.1); Sodium 141 mmol/L (137-145); Total Protein 6.6 g/dL (6.3-8.2)
[2025-01-09 12:55] LABS: TSH w/ Reflex to FT4 0.95 uIU/mL (0.47-4.68)
[2025-01-09 17:00] LABS: Clostridium Difficile Tox PCR Negative for C. diff (Negative)
== END ==
PROVIDERS: PCP Internal Medicine; Referring Provider Internal Medicine; Visit Provider Internal Medicine
DX: I10 Essential (primary) hypertension (principal); R19.7 Diarrhea, unspecified; I25.10 Atherosclerotic heart disease of native coronary artery without angina pectoris; E78.2 Mixed hyperlipidemia; I48.0 Paroxysmal atrial fibrillation
CPT/HCPCS: 36415; 80053; 83516; 84443; 86140; 87493

== ENCOUNTER → 2025-01-20 10:29 | Outpatient (CLI) | payer MEDICARE, BC, SELFPAY ==
[2023-09-22 13:53] VITALS: BMI 29.5
--- NOTE | 2025-01-20 10:30 | DI.RAD.S_ITS ---
PROCEDURE: XR CHEST 2V INDICATIONS: placement of pacemaker TECHNIQUE: 2 views of the chest were acquired. COMPARISON: [facility], CR, XR CHEST 2V, 06/17/2024, 13:11. [facility], CR, XR CHEST 2V, 03/03/2024, 16:12. FINDINGS: Surgical changes and devices: See below for new cardiac device. Lungs and pleura: Hazy interstitial and platelike densities noted at the lung bases. These are similar to the prior radiograph. Mild blunting of both costophrenic angles. Lungs are hyperinflated with flattening of the diaphragms. No pneumothorax. Mediastinum: The aorta and pulmonary arteries demonstrate normal size. Calcifications are noted in the thoracic arch. Mildly elevated right diaphragm. New oblong device projects over the heart. Bones and chest wall: No suspicious bony abnormalities. Soft tissues appear unremarkable. Multilevel degenerative disc disease noted. IMPRESSION: Persistent mild bilateral costophrenic angle blunting. This could represent small effusions or pleural thickening. Chronic interstitial densities in platelike densities at the lung bases suggestive of scarring. Correlate with symptoms and presentation. Dictated by: Brook Thibodeaux M.D. on 01/24/2025 at 12:11 Approved by: Brook Thibodeaux M.D. on 01/24/2025 at 12:13
== END ==
PROVIDERS: PCP Internal Medicine; Referring Provider Physical Medicine & Rehabilitation; Visit Provider Physical Medicine & Rehabilitation
DX: Z09 Encounter for follow-up examination after completed treatment for conditions other than malignant neoplasm (principal); Z95.0 Presence of cardiac pacemaker
CPT/HCPCS: 71046